=== PATIENT | male | born 1955 | race Caucasian/White ===

== ENCOUNTER → 2017-02-22 | Outpatient (CLI) | payer OTHER ==
[~2017-02-22] MED LIST: ASPEC81 PO; CARV3.12 PO; FLUO20CA35 PO; ISOS60TA25 PO; LOSA1TAB38 PO; LSX/40 PO; MINO1TAB PO; MULTTAB58 PO; NTRGSL/4 SL; POTA-327 PO; POTA20TA16 PO; SPIR50TA2 PO
--- NOTE | 2017-02-22 10:22 | DIAGNOSTIC IMAGING REPORT ---
TWO VIEW CHEST CLINICAL HISTORY: Atypical chest pain. Preoperative examination. FINDINGS: PA and lateral chest radiographs are compared to study dated 06/04/2012 and correlated with chest CT dated 04/30/2013. The PA view is degraded by patient rotation. The heart is enlarged and there is atherosclerotic calcification of the thoracic aorta. The pulmonary vasculature is noncongested. Chronic interstitial thickening is similar to previous. No airspace consolidation or pleural effusion is seen. There are at least 2 pulmonary nodules identified (1 in each lung) measuring up to 9 mm. Pulmonary nodules were also seen on the 04/30/2013 CT scan. There is no pneumothorax. The skeletal structures are osteopenic. Degenerative change is noted throughout the thoracic spine. IMPRESSION: 1. Cardiomegaly with no active disease in the chest. 2. There are at least 2 pulmonary nodules identified measuring up to 9 mm. These were also likely present on the 04/30/2013 CT scan. A nonemergent follow-up chest CT could be considered for reassessment if clinically warranted. Electronically signed by: Carroll Vega M.D. 02/22/2017 10:20 AM Dictated Date/Time: 02/22/2017 10:16 AM
[2017-02-22 10:46] LABS: BASO % 0.7 %; BASO ABS # 0.05 K/uL (0-0.2); COMPLETE YES; EOS % 5.5 %; HEMATOCRIT 49.2 % (42-52); IG% 0.3 %; LYMPH % 20.5 %; LYMPH ABS # 1.37 K/uL (1.2-3.4); MEAN CELL VOLUME 91.3 fL (80-100); MEAN CORPUSCULAR HEMOGLOBIN 31.4 pg (25-34); MEAN CORPUSCULAR HGB CONC 34.3 g/dl (32-36); MEAN PLATELET VOLUME 10.6 fL (7.4-10.4); MONO % 11.5 %; NEUT % 61.5 %; PLATELET COUNT 244 K/uL (130-400); RED BLOOD COUNT 5.39 M/uL (4.7-6.1); WHITE BLOOD COUNT 6.67 K/uL (4.8-10.8)
[2017-02-22 10:51] LABS: PARTIAL THROMBOPLASTIN RATIO 1.1; PROTHROMBIN TIME (PATIENT) 10.6 SECONDS (9.0-12.0)
[2017-02-22 11:11] LABS: ALKALINE PHOSPHATASE 84 U/L (45-117); ALT/SGPT 48 U/L (12-78); AST/SGOT 26 U/L (15-37); BLOOD UREA NITROGEN 24 mg/dl (7-18); BUN/CREATININE RATIO 19.6 (10-20); CALCIUM 9.5 mg/dl (8.5-10.1); CARBON DIOXIDE 30 mmol/L (21-32); CHLORIDE 106 mmol/L (98-107); CHOLESTEROL 144 mg/dl (0-200); CHOLESTEROL/HDL RATIO 2.7; GLUCOSE 139 mg/dl (70-99); HDL CHOLESTEROL 54 mg/dl; LDL CHOLESTEROL CALCULATED 66 mg/dl; POTASSIUM 3.8 mmol/L (3.5-5.1); SODIUM 141 mmol/L (136-145); TRIGLYCERIDES 119 mg/dl (0-150); VERY LOW DENSITY LIPOPROT CALC 24 mg/dl
== END | disposition home or self-care (01) ==
LOC: C.RAD1850 09:47
PROVIDERS: ATTEND Internal Medicine Cardiovascular Disease
DX: R07.9 Chest pain, unspecified (principal); I51.7 Cardiomegaly; R91.8 Other nonspecific abnormal finding of lung field

== ENCOUNTER → 2017-03-01 | Day surgery (SDC) | payer OTHER ==
[~2017-03-01] VITALS: Ht 177.8 cm; Wt 100.0 kg
[~2017-03-01] MED LIST changes: +ADENOSINE IV SOLN 3 MG/ML 20 ML VIAL ONE; +FENTANYL CITRATE INJ 50 MCG/1 ML 2 ML VIAL ONE; +HEPARIN SOD (PORCINE) 1000 UNIT/ML 10 ML VIAL ONE; +MIDAZOLAM HCL 1 MG/ML 2ML VIAL ONE; +NITROGLYCERIN/D5W 100MCG/ML 20ML SYR ONE; +NiCARDipine HCL INJ 2.5 MG/ML 10 ML AMP ONE
[2017-03-01 07:19] VITALS: BP 174/104; PULSE 53; TEMP 36.5; O2SAT 96; Ht 177.8 cm; Wt 100.0 kg
--- NOTE | 2017-03-01 10:19 | Procedure Note ---
Pre-Mod Sedation Assessment General Date of Moderate Sedation: March 01, 2017. Vital Signs: Vital Signs Past 12 Hours Date Time Temp Pulse Resp B/P Pulse Ox O2 Delivery O2 Flow Rate FiO2 03/01/17 10:00 58 18 166/102 98 Room Air 03/01/17 09:55 57 18 165/108 98 Room Air 03/01/17 09:50 56 16 150/102 99 Room Air 03/01/17 09:45 54 16 159/104 99 Room Air 03/01/17 09:40 58 16 156/104 98 Room Air 03/01/17 09:38 57 16 166/114 96 Room Air 03/01/17 07:19 36.5 53 16 174/104 96 Room Air Review Cardiovascular: regular rate, rhythm, no edema Abdomen: normal bowel sounds, non tender Lungs: chest non-tender, lungs clear Pre-Sedation Airway Assessment Oral Cavity: Dentures, WNL Short Thick Neck: No Hx of Sleep Apnea: Yes Smoking Status: Never Smoker Mallampati Classification: Class III ASA Classification: Class III Procedure Planning Contraindications-for Mod Sed: None Yes Notes The planned sedation has been discussed with the patient and consent obtained. I have identified the patient, determined the appropriateness of sedation and have assessed the patient immediately prior to the procedure. All medicine(s) and interventions are by my order.
--- NOTE | 2017-03-01 10:20 | Procedure Note ---
Post-Mod Sedation Assessment General Date of Moderate Sedation March 01, 2017. Vital Signs: Vital Signs Past 12 Hours Date Time Temp Pulse Resp B/P Pulse Ox O2 Delivery O2 Flow Rate FiO2 03/01/17 10:00 58 18 166/102 98 Room Air 03/01/17 09:55 57 18 165/108 98 Room Air 03/01/17 09:50 56 16 150/102 99 Room Air 03/01/17 09:45 54 16 159/104 99 Room Air 03/01/17 09:40 58 16 156/104 98 Room Air 03/01/17 09:38 57 16 166/114 96 Room Air 03/01/17 07:19 36.5 53 16 174/104 96 Room Air Review - Discharge Criteria Vital Signs Stable: Yes Alert/Oriented/Conversant: Yes Returned to Baseline Mental St: Yes Nausea Absent/Minimal: Yes Pain/Discomfort/Absent/Minimal: Yes Normal/Baseline Respirations: Yes Active Bleeding?: N/A Pt Received D/C Instructions: Yes Prescriptions Given: Transmitted Specific Proced. D/C Criteria Distal Pulses Present (Cardiac: Yes Groin site assessed-Card Cath: N/A Voided Prior To Discharge: N/A Discharged Patients Adult Escort/Transportation: Yes
--- NOTE | 2017-03-01 10:49 | Discharge Instructions ---
Discharge Instructions Procedure Procedure Date: March 01, 2017. Reason for Visit: Chest Pain *. Discharge Discharge Date: March 01, 2017. Discharge Diagnosis: Coronary Artery Disease Last Recorded Wt (Kilograms): 100 Anesthesia Post Anesthesia Instructions: If you have had General Anesthesia or IV Sedation: * Do not drive today. * Resume driving when surgeon permits. * Do not make important decisions or sign legal documents today. * Call surgeon for: 1. Temperature elevations greater than 101 degrees F. 2. Uncontrollable pain. 3. Excessive bleeding. 4. Persistent nausea and vomiting. 5. Medication intolerance (nausea, vomiting or rash). * For nausea and vomiting use only clear liquids such as: tea, soda, bouillon until nausea subsides, then gradually increase diet as tolerated. * If you have any concerns or questions, call your surgeon's office. If physician is unavailable and it is an emergency, call 911 or go to the nearest emergency room. Instructions Activity Recommendations: limitations as noted below Recommended Home Diet: resume previous diet Allergies: Coded Allergies: Acetaminophen (Verified Adverse Reaction, Unknown, HIVES, 03/01/17) Follow Up Additional Instructions: ACTIVITY RECOMMENDATIONS: It is common to feel weak and fatigue for a few days. * Do not drive or operate any motorized equipment for the next three days. * Limit stair usage (2 or 3 trips a day only) for the next three days. * Do not lift anything heavier than 10 pounds for the next three days. * Do not engage in vigorous exercise or any sports for the next five days. * You may shower the day after your procedure, but do not immerse the area for three days. Cleanse the site gently with soap and water. SPECIAL CARE INSTRUCTIONS: * You may replace the pressure dressing or band-aid the morning after the procedure. * After your procedure, it is normal to have a small bruise or small lump at the site. Examine your site daily for any change in the bruise or lump, redness, swelling, drainage or numbness. Notify your doctor if any change. BLEEDING: * If there is a small amount of bleeding at the site, lie down and apply firm pressure with a clean cloth for ten minutes. When the bleeding stops, lie quietly keeping the procedure limb straight for six hours. Notify your doctor as soon as possible. * If the bleeding does not stop after ten minutes or if there is a large amount of bleeding or spurting, call 911 immediately. Continue to lie down and hold firm pressure until help arrives. SKIN IRRITATION: * You may experience some redness and/or swelling in the area where radiation was administered. If any skin irritation occurs, please contact your family physician. FOLLOW UP VISIT: Keep any scheduled doctor appointments. Follow-up with: Dr. Duval in next 1-2 weeks. Vlad Riley Recommendations: Call your doctor if: * Temperature above 101 degrees * Pain not relieved by pain medicine ordered * There is increased drainage or redness from any incision * You have any unanswered questions or concerns. Your Doctors Instructions noted above were prepared by provider Pérez Infante. Patient Signature Section: Patient Instructions Signature Page Anton Nuno Patient (or Guardian) Signature/Date: I have read and understand the instructions given to me by my caregivers. Caregiver/RN/Doctor Signature/Date: The above-named patient and/or guardian has received patient instructions on this date. + Original Patient Signature Page (only) stays with chart. Please make copy for patient.
[2017-03-01 12:15] VITALS: BP 160/87; PULSE 58; O2SAT 99
--- NOTE | 2017-03-07 08:08 | Cardiac Catheterization ---
Procedure Note Procedure Date March 01, 2017. Pre-Procedure Diagnosis Positive Stress Test AUC Score 7 Post-Procedure Diagnosis Severe CAD, Normal Intracardiac Pressures Procedure(s) Performed Coronary Angiography, Left Heart Cath, Fractional Flow [place] Odd Bundle Worker Dr. Infante Transport Tank Technician(s) Valeria Estimated Blood Loss 15 Medication(s) Fentanyl, Heparin, Nitroglycerin, Versed, Lidocaine 1%, Adenosine Summary of Findings Indication: Positive stress test Access: 6Fr Left radial Artery Catheters: JL4, JR4, AR2 Findings: LM - Luminal irregularities. LAD - 50% ostial stenosis; 30-40% mid segment stenosis; distal segment tapers before apex and is small and diffusely diseased. Circumflex - 20% ostial stenosis; gives off large OM2 with luminal irregularities; distal circumflex is small with sequential lesions, 70% stenosis at take-off of OM2 and second focal area with 70-80% stenosis; Small L- PLB with luminal irregularities RCA - Dominant, 80-90% ostial, moderately calcified stenosis; 60% early-mid segment stenosis; distal vessel, PDA with luminal irregularities. LVEDP - 7 Arterial Closure: TR Band FFR of ostial, mid LAD performed: EBU 3.5 guide, straight FFR wire, adenosine administered FFR - 0.88 Summary: 1. Multivessel coronary artery disease - 80-90% ostial calcified RCA, 60% mid segment disease - 50% ostial LAD (FFR 0.88) - Sequential 70% lesions in small distal circumflex 2. Normal intracardiac filling pressures. Recommendations: Ostial RCA is calcified and may require atherectomy. Recommend referral to tertiary center for possible intervention if needed. At present patient with low grade symptoms, and above average exercise tolerance on recent stress test, trial of additional medical management reasonable. Patient to follow-up with Dr. Duval next week to discuss further. In interim continue aspirin, high-intensity statin. Hemodynamics Rest Ao: 163/86/122 Final Ao: 172/87/125 LV: 180/7 Recommendations Medical therapy and/or Counseling, PCI without planned CABG Specimens None Radiation Exposure (mGy) 2915 Contrast (mls) 140 Fluids (cc crystalloids) 140 Drains none Anesthesia moderate Procedural Complication(s) None Disposition PCU ACC Data Cardiac Status Clinical evaluation leading to the procedure CAD Presntation: Positive Stress Test Anginal Classification: CCS II Heart Failure: No, NYHA Class: CCS I Cardiogenic Shock w/in 24Hrs: No Cardiac Arrest w/in 24Hrs: No Imaging studies past 6 months: Yes Stress studies past 6 months: Yes Standard Exercise Stress Test: No Stress Echocardiogram: Yes - Positive Stress Testing w/SPECT MPI: No Cardiac CTA: No Coronary Anatomy Dominant: Right LAD (% Stenosis): Ostial (50) Circumflex (% Stenosis): Distal (70-80) RCA (% Stenosis): Ostial (80-90), Mid (60) Diagnostic Physician's Name: Lul Infante MD Status: Elective Closure Device Percutaneous Entry Location: Radial Closure Device: Radial Band Recommendations: Medical therapy and/or Counseling, PCI without planned CABG Intraprocedure Events Significant Dissection: No Perforation: No
== END | disposition home or self-care (01) ==
LOC: C.CATH 07:02
PROVIDERS: ATTEND Internal Medicine Interventional Cardiology
DX: I25.10 Atherosclerotic heart disease of native coronary artery without angina pectoris (principal); I10 Essential (primary) hypertension; I25.9 Chronic ischemic heart disease, unspecified; I65.29 Occlusion and stenosis of unspecified carotid artery; I51.9 Heart disease, unspecified; I35.0 Nonrheumatic aortic (valve) stenosis; Z82.49 Family history of ischemic heart disease and other diseases of the circulatory system; Z79.82 Long term (current) use of aspirin

== ENCOUNTER 2025-03-05 14:53 | Observation (INO) ==
--- NOTE | 2025-03-05 15:34 | Emergency Department Note ---
Impression & Plan Syncope, Acute hypotension ED Provider Note NAME: DAVIDE AGEE AGE: 69 SEX: M : 1955 ARRIVES VIA: Ambulance INFORMANT: Patient ED PROVIDER(S): Zain Love DO CHIEF COMPLAINT: syncope HPI: Patient is a 69-year-old male who presents to the ER with a past medical history of severe aortic stenosis and mild mitral regurg who had a TAVR performed at [facility] and was DC'd on Tuesday. Patient passed out twice today back to back. They were changing his Hays and he passed out. Following this they put him on the toilet to sit and he passed out there. He denies any head neck or back pain. No chest pain or shortness of breath. No belly pain. No urinary symptoms. Denies any blood thinners. No other exacerbating or remitting factors. Patient was lowered to the ground on both incidents. Patient notes that he has no complaints now and he feels fine. He has been eating and drinking normally per . ADDITIONAL HISTORY OBTAINED: Family present at bedside notes that patient did pass out 2 times. notes that they have been try to get up and move around. Chronic Medical/Social Conditions Affecting Care: Per HPI PAST MEDICAL HISTORY:See Below PAST SURGICAL HISTORY:See Below FAMILY HISTORY:See Below SOCIAL HISTORY:See Below HOME MEDICATIONS:See Below ALLERGIES:See Below VITALS:See Below PHYSICAL EXAMINATION: GENERAL: Sitting up in bed, alert, well appearing, well nourished, no distress, non-toxic HEAD: NC/AT EYE EXAM: normal conjunctiva. PERRL and EOM's grossly intact. OROPHARYNX: no exudate, no erythema, lips, buccal mucosa, and tongue normal and mucous membranes are moist NECK: supple, no nuchal rigidity, no adenopathy, non-tender LUNGS: Clear to auscultation. Normal chest wall mechanics HEART: no murmurs, S1 normal and S2 normal ABDOMEN: abdomen soft, non-tender, normo-active bowel sounds, no masses, no rebound or guarding. BACK: Back is symmetrical on inspection and there is no deformity, no midline tenderness, no CVA tenderness. SKIN: no rashes and no bruising UPPER EXTREMITIES: upper extremities are grossly normal. LOWER EXTREMITIES: No pitting edema. Calves are equal bilaterally NEURO EXAM: Normal sensorium, cranial nerves II-XII grossly intact, normal speech, no gross weakness of arms, no gross weakness of legs. MEDICAL DECISION MAKING: Patient is a 69-year-old male who presents ER for the above-stated complaint. IV was established and blood work was obtained. External records were reviewed from Dr. Duval's note performed on 01/15/2025. Note shows an EF from an echo 2023 50-55%. Upon presentation patient found to be hypotensive with systolic pressures in the 70s to 80s. 2 IVs were obtained and patient was given IV fluids. Bedside echo was performed by myself and no pericardial effusion. Was slightly abnormal which showed some retrograde P waves and what appeared to be intermittent junctional rhythm. Monitor suggest sinus rhythm and will intermittently appear to go into a again which appears to be an accelerated junctional. Blood pressures remain stable throughout this. I do not feel this is the cause of the hypotension as they have rebounded and not dropped down again. Do favor is likely volume as he was on Lasix. Chest x-ray was clean. Echo was obtained and shows an EF of 60%. I did call the mechanical assembly technician to bedside to perform this. Discussed with cardiology. Patient was discussed with the hospitalist for further evaluation management treatment. He did not hurt anything as he was lowered to the ground when he passed out. Consults/Care Managements Discussions: Per [facility] Triage Nursing notes reviewed. Limited review of prior medical records performed Vital Signs: reviewed and remarkable for hypotension Differential diagnosis: Differential diagnosis includes etiologies such as vasovagal event, infection, hypoglycemia, electrolyte abnormalities, cardiac sources, intracerebral event, toxicologic, neurologic, as well as others were entertained. ER treatment provided: See below Diagnostics interpreted by me include EKG and cardiac monitoring as listed below: -Cardiac Monitoring: An order was placed for continuous cardiac monitoring. The monitor shows a rate of 60 with sinus rhythm. -ECG: Retrograde P waves intermittently with a accelerated junctional rhythm at a rate of 70 QTc 447 Left axis -Laboratory studies:Interpreted by me as stated above in MDM and shown below. Imaging studies: Xrays: As interpreted by me: Portable AP upright 1 view of the chest shows no focal infiltrate CTs show: None Bedside cardiac ultrasound performed by myself shows no pericardial effusion Procedures:none Critical Care: I have personally spent 33 minutes of critical care time in the direct management of this patient. This includes bedside care, interpretation of diagnostic studies, and testing, discussion with consultants, patient, and family members, and other required patient management activities. This 33 minutes is in excess of all separately billable procedures. Past Med/Surg History Problem List (Updated 02/07/25 @ 17:25 by Carlos Duval MD) Severe aortic stenosis Hypercalcemia Depression (Acute) CAD, multiple vessel Medically managed. 2017 cath: borderline occlusive ostial RCA, distal Cx, mid LAD Chronic diastolic congestive heart failure HTN (hypertension) Obstructive sleep apnea Sinus bradycardia Medical History Acute diastolic (congestive) heart failure (2011) Basal ganglia hemorrhage (2009) Left thalamic infarction (2004) Carotid occlusion, left (2004) Multiple pulmonary nodules (2013) Bicipital tendinitis, left shoulder (2015) Central retinal vein occlusion (2015) LVH (left ventricular hypertrophy) Family History Father Hypertension Social History Smoking Status: Never smoker Hx Alcohol Use: Yes Hx Substance Use: No Feels Safe at Home: Yes Allergies Allergies Allergy/AdvReac Type Severity Reaction Status Date / Time acetaminophen AdvReac Unknown HIVES Verified 03/05/25 17:09 ceftriaxone [From Rocephin] AdvReac Hives Verified 03/05/25 17:09 Home Meds Home Medications Medication Instructions Recorded Confirmed aspirin 81 mg tablet,delayed 81 mg PO DAILY 06/29/19 03/05/25 release (Adult Aspirin Regimen) atorvastatin 80 mg tablet 80 mg PO DAILY 08/21/19 03/05/25 ezetimibe 10 mg tablet 10 mg PO DAILY 03/05/25 03/05/25 multivitamin 1 tab PO DAILY 03/05/25 03/05/25 nitroglycerin 0.4 mg sublingual 0.4 mg sublingual ONCE PRN Chest 03/05/25 03/05/25 tablet Pain tamsulosin 0.4 mg capsule 0.4 mg PO DAILY 03/05/25 03/05/25 Previous Rx's Medication Instructions Recorded CPAP Machine See Rx Instructions .Route 04/15/22 .COMPLEX #1 ea spironolactone 50 mg tablet 50 mg PO DAILY #90 tabs 03/29/24 furosemide 40 mg tablet 40 mg PO DAILY #90 tabs 05/29/24 irbesartan 300 mg tablet 300 mg PO DAILY #90 tabs 05/29/24 potassium chloride 20 mEq 20 meq PO DAILY #90 tabs 05/29/24 tablet,extended release isosorbide mononitrate 60 mg 60 mg PO DAILY #90 tabs 02/21/25 tablet,extended release 24 hr Results & Data (ED) Vital Signs Vital Signs - 24 hr 03/05/25 15:00 03/05/25 15:04 03/05/25 15:05 Temperature 36.9 C 36.9 C Temperature Source Oral Oral Pulse Rate 73 Pulse Rate from SpO2 Sensor Respiratory Rate 20 20 Blood Pressure 90/50 L Blood Pressure [Left Arm] 90/50 L Blood Pressure Mean 63 Blood Pressure Mean [Left Arm] 63 Pulse Oximetry 100 100 100 Oxygen Delivery Method Room Air Room Air Room Air Sepsis Recent Fever Within 48 Hours No Sepsis New/Unexplained Change in Mental Status N/A Sepsis Action Taken by Nursing No Action Required 03/05/25 15:07 03/05/25 15:10 03/05/25 15:12 Temperature Temperature Source Pulse Rate 68 67 Pulse Rate from SpO2 Sensor Respiratory Rate 20 Blood Pressure 75/49 L Blood Pressure [Left Arm] Blood Pressure Mean 54 Blood Pressure Mean [Left Arm] Pulse Oximetry 99 Oxygen Delivery Method Room Air Sepsis Recent Fever Within 48 Hours Sepsis New/Unexplained Change in Mental Status Sepsis Action Taken by Nursing 03/05/25 15:12 03/05/25 15:15 03/05/25 15:16 Temperature Temperature Source Pulse Rate 74 Pulse Rate from SpO2 Sensor 71 Respiratory Rate 22 Blood Pressure 75/49 L 83/57 L Blood Pressure [Left Arm] Blood Pressure Mean 54 67 Blood Pressure Mean [Left Arm] Pulse Oximetry 91 Oxygen Delivery Method Sepsis Recent Fever Within 48 Hours Sepsis New/Unexplained Change in Mental Status Sepsis Action Taken by Nursing 03/05/25 15:16 03/05/25 15:27 03/05/25 15:30 Temperature Temperature Source Pulse Rate 66 Pulse Rate from SpO2 Sensor 67 Respiratory Rate 27 H Blood Pressure 79/51 L 111/67 Blood Pressure [Left Arm] Blood Pressure Mean 58 79 Blood Pressure Mean [Left Arm] Pulse Oximetry 100 Oxygen Delivery Method Sepsis Recent Fever Within 48 Hours Sepsis New/Unexplained Change in Mental Status Sepsis Action Taken by Nursing 03/05/25 15:30 03/05/25 15:30 03/05/25 15:30 Temperature Temperature Source Pulse Rate Pulse Rate from SpO2 Sensor Respiratory Rate Blood Pressure 111/67 111/67 111/67 Blood Pressure [Left Arm] Blood Pressure Mean 79 79 79 Blood Pressure Mean [Left Arm] Pulse Oximetry Oxygen Delivery Method Sepsis Recent Fever Within 48 Hours Sepsis New/Unexplained Change in Mental Status Sepsis Action Taken by Nursing 03/05/25 15:30 03/05/25 15:33 03/05/25 15:45 Temperature Temperature Source Pulse Rate 66 68 Pulse Rate from SpO2 Sensor 68 68 Respiratory Rate 40 H 34 H Blood Pressure 140/80 Blood Pressure [Left Arm] Blood Pressure Mean 101 Blood Pressure Mean [Left Arm] Pulse Oximetry 95 100 Oxygen Delivery Method Sepsis Recent Fever Within 48 Hours Sepsis New/Unexplained Change in Mental Status Sepsis Action Taken by Nursing 03/05/25 15:54 03/05/25 15:57 03/05/25 16:00 Temperature Temperature Source Pulse Rate 70 67 Pulse Rate from SpO2 Sensor 60 64 Respiratory Rate 26 H 27 H Blood Pressure 124/93 Blood Pressure [Left Arm] Blood Pressure Mean 100 Blood Pressure Mean [Left Arm] Pulse Oximetry 100 100 Oxygen Delivery Method Sepsis Recent Fever Within 48 Hours Sepsis New/Unexplained Change in Mental Status Sepsis Action Taken by Nursing 03/05/25 16:00 03/05/25 16:15 03/05/25 16:15 Temperature Temperature Source Pulse Rate 67 Pulse Rate from SpO2 Sensor 65 Respiratory Rate 26 H Blood Pressure 124/93 115/77 Blood Pressure [Left Arm] Blood Pressure Mean 100 95 Blood Pressure Mean [Left Arm] Pulse Oximetry 100 Oxygen Delivery Method Sepsis Recent Fever Within 48 Hours Sepsis New/Unexplained Change in Mental Status Sepsis Action Taken by Nursing 03/05/25 16:30 03/05/25 16:30 03/05/25 16:45 Temperature Temperature Source Pulse Rate 66 68 Pulse Rate from SpO2 Sensor 63 68 Respiratory Rate 36 H 29 H Blood Pressure 132/78 Blood Pressure [Left Arm] Blood Pressure Mean 102 Blood Pressure Mean [Left Arm] Pulse Oximetry 98 99 Oxygen Delivery Method Sepsis Recent Fever Within 48 Hours Sepsis New/Unexplained Change in Mental Status Sepsis Action Taken by Nursing 03/05/25 16:45 03/05/25 16:45 03/05/25 16:48 Temperature Temperature Source Pulse Rate 67 Pulse Rate from SpO2 Sensor 67 Respiratory Rate 26 H Blood Pressure 116/66 116/66 116/66 Blood Pressure [Left Arm] Blood Pressure Mean 80 80 82 Blood Pressure Mean [Left Arm] Pulse Oximetry 100 Oxygen Delivery Method Sepsis Recent Fever Within 48 Hours Sepsis New/Unexplained Change in Mental Status Sepsis Action Taken by Nursing 03/05/25 17:15 03/05/25 17:30 Temperature Temperature Source Pulse Rate 68 70 Pulse Rate from SpO2 Sensor 65 68 Respiratory Rate 25 H 18 Blood Pressure 120/80 142/77 H Blood Pressure [Left Arm] Blood Pressure Mean 93 98 Blood Pressure Mean [Left Arm] Pulse Oximetry 98 98 Oxygen Delivery Method Sepsis Recent Fever Within 48 Hours Sepsis New/Unexplained Change in Mental Status Sepsis Action Taken by Nursing Laboratory Data 03/05/25 15:01 03/05/25 15:01 Lab Results 03/05/25 03/05/25 Range/Units 15: 15:29 WBC 9.07 (4.8-10.8) K/ul RBC 4.48 L (4.70-6.10) M/uL Hgb 13.9 L (14.0-18.0) g/dl POC Hgb 13.6 L (14.0-18.0) g/dl Hct 40.1 L (42.0-52.0) % POC Hct 40 L (42-52) % MCV 89.5 (80.0-100.0) fL MCH 31.0 (25.0-34.0) pg MCHC 34.7 (32.0-36.0) g/dL RDW Std Deviation 43.7 (36.4-46.3) fL RDW Coeff of Bret 13.3 (11.5-14.5) % Plt Count 253 (130-400) K/uL MPV 10.4 (9.4-12.4) fL Immature Gran % (Auto) 0.6 % Neut % (Auto) 69.9 % Lymph % (Auto) 16.0 % Green % (Auto) 9.3 % Eos % (Auto) 3.5 % Baso % (Auto) 0.7 % Neut # (Auto) 6.35 (1.40-6.50) K/uL Lymph # (Auto) 1.45 (1.20-3.40) K/uL Green # (Auto) 0.84 H (0.11-0.59) K/uL Eos # (Auto) 0.32 (0.00-0.50) K/uL Baso # (Auto) 0.06 (0.00-0.20) K/uL Immature Gran # (Auto) 0.05 (0.01-0.20) K/uL POC Sodium 139 (135-144) mmol/L Sodium 136 (136-145) mmol/L POC Potassium 3.9 (3.3-5.0) mmol/L Potassium 3.9 (3.5-5.1) mmol/L POC Chloride 103 (101-112) mmol/L Chloride 103 (98-107) mmol/L Carbon Dioxide 27 (21-32) mmol/L POC Total CO2 20 L (24-31) mmol/L Anion Gap 6 (3-11) POC Anion Gap 21.0 (16-25) mmol/L POC BUN 21 H (7-18) mg/dl BUN 21 (6-23) mg/dl Creatinine 1.43 H (0.6-1.4) mg/dl POC Creatinine 1.5 H (0.6-1.3) mg/dl Est Cr Clr Drug Dosing 58.7 ml/min eGFR 52.71 BUN/Creatinine Ratio 14.7 (10-20) Glucose 169 H (70-99(Fasting)) mg/dl POC Glucose (other) 177 H (70-99) mg/dl Calcium 10.2 (8.6-10.3) mg/dl POC Ioniz Calcium Gayathri 1.29 (1.12-1.32) mmol/l Total Bilirubin 1.1 H (0.2-1.0) mg/dl AST 34 (13-39) U/L ALT 31 (7-52) U/L Alkaline Phosphatase 85 (34-104) U/L Troponin I High Sens 14.2 (0-20) pg/ml Total Protein 7.3 (6.0-8.3) gm/dl Albumin 3.9 (3.4-5.0) gm/dl Globulin 3.4 (2.5-4.0) gm/dl Albumin/Globulin Ratio 1.1 (0.9-2) Lipase 50 (11-82) U/L Procalcitonin 0.10 (0-0.5) ng/ml Administered Medications Discontinued Medications Diphenhydramine HCl (Diphenhydramine 50 Mg/Ml Vial) 25 mg IV NOW STA Stop: 03/05/25 16:54 Last Admin: 03/05/25 17:00 Dose: 25 mg Documented By: ANGELITO Sodium Chloride (Nss) 1,000 mls @ 999 mls/hr IV .Q1H1M ONE Stop: 03/05/25 16:21 Last Infusion: 03/05/25 17:30 Dose: Infused Documented By: Admin: 03/05/25 15:40 Dose: 999 mls/hr Documented By: ANGELITO Ceftriaxone Sodium (Rocephin) 2,000 mg in 50 mls @ 100 mls/hr IV NOW STA Stop: 03/05/25 16:12 Last Infusion: 03/05/25 17:29 Dose: Infused Documented By: Admin: 03/05/25 16:38 Dose: 100 mls/hr Documented By: ANGELITO Methylprednisolone (Methylprednisolone 125 Mg/2 Ml Vial) 125 mg IV NOW STA Stop: 03/05/25 16:54 Last Admin: 03/05/25 17:00 Dose: 125 mg Documented By: ANGELITO Imaging Data Radiologist's Impression: Chest X-Ray 03/05/25 15:07 XR chest 1V portable CLINICAL HISTORY: Chest pain, nonspecific COMPARISON STUDY: 06/28/2019 FINDINGS: Stable mild cardiomegaly without pulmonary vascular congestion. No effusion, consolidation, or pneumothorax. IMPRESSION: No acute findings. ACT 112: Negative or not required by law. Electronically signed by: Freedom Ferreira M.D. 03/05/2025 3:34 PM Discharge Plan Visit Data Chief Complaint: Syncope Stated Complaint: SYNCOPE ED Provider: Zain Love Condition: Fair Forms Stand Alone Forms: My [facility] Prescriptions Prescriptions: No Action spironolactone 50 mg tablet 50 mg PO DAILY Qty: 90 3RF furosemide 40 mg tablet 40 mg PO DAILY Qty: 90 3RF irbesartan 300 mg tablet 300 mg PO DAILY Qty: 90 3RF potassium chloride 20 mEq tablet extended release 20 meq PO DAILY Qty: 90 3RF isosorbide mononitrate 60 mg tablet extended release 24 hr 60 mg PO DAILY Qty: 90 3RF CPAP Machine Misc See Rx Instructions .ROUTE .COMPLEX Qty: 1 0RF Rx Instructions: new machine, compliance download capabilities and estimated AHI and leak. CPAP 17 cm H2O. Mask fit to patient comfort, supplies as needed; T&B aspirin [Adult Aspirin Regimen] 81 mg tablet,delayed release (DR/EC) 81 mg PO DAILY atorvastatin 80 mg tablet 80 mg PO DAILY multivitamin Tablet 1 tab PO DAILY tamsulosin 0.4 mg capsule 0.4 mg PO DAILY ezetimibe 10 mg tablet 10 mg PO DAILY nitroglycerin 0.4 mg tablet, sublingual 0.4 mg SL ONCE PRN (Reason: Chest Pain) Referrals Referrals: Henrique Arambula MD [Primary Care Provider] -
[2025-03-05 15:40] LABS: Basophils # (auto) 0.06 K/uL (0.00-0.20); Basophils % (auto) 0.7 %; Eosinophils # (auto) 0.32 K/uL (0.00-0.50); Eosinophils % (auto) 3.5 %; Hematocrit (blood only) 40.1 % (42.0-52.0); Hemoglobin 13.9 g/dl (14.0-18.0); Immature Granulocytes # (auto) 0.05 K/uL (0.01-0.20); Immature Granulocytes % (auto) 0.6 %; Lymphocytes # (auto) 1.45 K/uL (1.20-3.40); Mean Corpuscular Hgb Conc 34.7 g/dL (32.0-36.0); Mean Corpuscular Volume 89.5 fL (80.0-100.0); Mean Platelet Volume 10.4 fL (9.4-12.4); Monocytes # (auto) 0.84 K/uL (0.11-0.59); Monocytes % (auto) 9.3 %; Neutrophils # (auto) 6.35 K/uL (1.40-6.50); Neutrophils % (auto) 69.9 %; Platelet Count 253 K/uL (130-400); RDW Coefficient of Variation 13.3 % (11.5-14.5); RDW Standard Deviation 43.7 fL (36.4-46.3); Red Blood Count 4.48 M/uL (4.70-6.10); White Blood Count 9.07 K/ul (4.8-10.8)
[2025-03-05] MEDS: SODIUM CHLORIDE 0.9% 1,000 ML IV ONE (15:40)
[2025-03-05 15:42] LABS: iSTAT Creatinine 1.5 mg/dl (0.6-1.3); iSTAT Hemoglobin 13.6 g/dl (14.0-18.0); iSTAT Ionized Calcium 1.29 mmol/l (1.12-1.32); iSTAT Potassium 3.9 mmol/L (3.3-5.0)
[2025-03-05 16:07] LABS: Albumin Globulin Ratio 1.1 (0.9-2); Albumin Level 3.9 gm/dl (3.4-5.0); BUN Creatinine Ratio 14.7 (10-20); Bilirubin,Total 1.1 mg/dl (0.2-1.0); Calcium 10.2 mg/dl (8.6-10.3); Creatinine Clr Calc Pharmacy 58.7 ml/min; Globulin 3.4 gm/dl (2.5-4.0); Potassium 3.9 mmol/L (3.5-5.1); Total Protein 7.3 gm/dl (6.0-8.3)
[2025-03-05 16:14] LABS: Troponin I High Sensitivity 14.2 pg/ml (0-20)
[2025-03-05] MEDS: cefTRIAXone SODIUM 2,000 MG/50 ML BAG IV STA (16:38)
--- NOTE | 2025-03-05 16:44 | XCELERA ---
[id number] [email or web address]\[id number]
[2025-03-05] MEDS: diphenhydrAMINE 50 MG/ML VIAL IV STA (17:00)
[2025-03-05] MEDS: methylPREDNISolone 125 MG/2 ML VIAL IV STA (17:00)
--- NOTE | 2025-03-05 19:12 | History & Physical Report ---
Date of Service March 05, 2025 Assessment & Plan (1) Near syncope: (2) Junctional rhythm: (3) Severe aortic stenosis: (4) CAD, multiple vessel: Plan #near syncopehaving just had a TAVR, and his diuretic dosing has not yet been down regulated, with his creatinine higher than recent labs, I suspect this is most likely dehydration. Given how brittle severe aortic stenosis leave someone as far as their fluid balance, and given that it does not sound like there was any electrophysiology interventions last week (again I will look for these records to review) most likely it was a poor forward flow/fluid balance issue whenever he had syncope/near syncope last week as well. He feels better now, and has been given fluids. Will check orthostatics and give more fluids if he has any significant orthostatic drop in his blood pressure or increase in his heart rate, and hold his Lasix for now. We discussed how often after TAVR people's medication needs can pipe changer time, and it may simply be a good time to start to wean back on his diuretics. At the same time, he does show o ccasionally what appears to be a junctional rhythm, although he does not have any symptoms during it (he did it briefly while I was in the room with him) and every junctional rhythm that we have captured on monitor still has a heart rate in the 6070 range. Probably not of clinical significance, but given that he does have significant heart disease and now recurrent events, we will follow his rhythm, check twelve-lead EKG again in the morning, and possibly set him up for an event recorder. #Severe arctic stenosisstatus post TAVR, echo noted, fortunately TAVR appears to be in good position and working well #AKIprobably from volume depletion as above noted. Has been given a liter of IV fluids. Will give more if he shows significant orthostatic drop #DVT prophylaxisambulation unless his hospital stay becomes prolonged. History of Present Illness Chief Complaint: Syncope/near syncope Primary Care Provider: Henrique Arambula MD patient is a very pleasant 69-year-old male who presents after having a syncopal or near syncopal event at home. He relates that he was getting ready to go out of the house, currently has an indwelling Hays, was getting his pants buttoned around the catheter tubing, and then does not really remember what happened and then recalls sitting on the toilet with his family around him calling 911 as he related to them that he was fine. His notes that she was helping him get dressed, and the time that he cannot really account for he got poorly responsive although not unresponsive, did not truly lose consciousness but did get very pale and sweaty and his eyes were unfocused, he staggered to his knees, and then she was able to help him sit up on the toilet, and then called 911. After that he seems to have slowly come back to feeling like his normal self. [facility], he was having a lot of urinary issues as well and the punch molder was able to get him in with urology [facility]. At the urology visit he also apparently had a similar episodenot entirely clear what had happened (will find records to review) but notes from there he was sent to the ER, and was evaluated by cardiology there who then had him stay in the hospital until proceeding with TAVR 2 days later. He currently feels fine and wants to go home Allergies Allergy/AdvReac Type Severity Reaction Status Date / Time acetaminophen AdvReac Unknown HIVES Verified 03/05/25 17:09 ceftriaxone [From Rocephin] AdvReac Hives Verified 03/05/25 17:09 Home Medications Medication Instructions Recorded Confirmed Type aspirin 81 mg tablet,delayed 81 mg PO DAILY 06/29/19 03/05/25 History release (Adult Aspirin Regimen) atorvastatin 80 mg tablet 80 mg PO DAILY 08/21/19 03/05/25 History CPAP Machine See Rx Instructions .Route 04/15/22 02/13/25 Rx .COMPLEX #1 ea spironolactone 50 mg tablet 50 mg PO DAILY #90 tabs 03/29/24 03/05/25 Rx furosemide 40 mg tablet 40 mg PO DAILY #90 tabs 05/29/24 03/05/25 Rx irbesartan 300 mg tablet 300 mg PO DAILY #90 tabs 05/29/24 03/05/25 Rx potassium chloride 20 mEq 20 meq PO DAILY #90 tabs 05/29/24 03/05/25 Rx tablet,extended release isosorbide mononitrate 60 mg 60 mg PO DAILY #90 tabs 02/21/25 03/05/25 Rx tablet,extended release 24 hr ezetimibe 10 mg tablet 10 mg PO DAILY 03/05/25 03/05/25 History multivitamin 1 tab PO DAILY 03/05/25 03/05/25 History nitroglycerin 0.4 mg sublingual 0.4 mg sublingual ONCE PRN Chest 03/05/25 03/05/25 History tablet Pain tamsulosin 0.4 mg capsule 0.4 mg PO DAILY 03/05/25 03/05/25 History Past Med/Surg History Problem List (Updated 03/05/25 @ 19:15 by Zain Maldonado DO) Junctional rhythm Near syncope Severe aortic stenosis Hypercalcemia Depression (Acute) CAD, multiple vessel Medically managed. 2017 cath: borderline occlusive ostial RCA, distal Cx, mid LAD Chronic diastolic congestive heart failure HTN (hypertension) Obstructive sleep apnea Sinus bradycardia Medical History Acute diastolic (congestive) heart failure (2011) Basal ganglia hemorrhage (2009) Left thalamic infarction (2004) Carotid occlusion, left (2004) Multiple pulmonary nodules (2013) Bicipital tendinitis, left shoulder (2015) Central retinal vein occlusion (2015) LVH (left ventricular hypertrophy) Family History Father Hypertension Social History Smoking Status: Never smoker Hx Alcohol Use: Yes Hx Substance Use: No Feels Safe at Home: Yes Review of Systems Review of Systems: All systems reviewed & are unremarkable except as noted in HPI & below Physical Exam Physical Exam: in general he is awake alert oriented pleasant no distress. HEENT normocephalic atraumatic mucous membranes moist. Cardio is regular without rubs murmurs gallops. Lungs are clear to auscultation bilaterally no rales rhonchi or wheezes good effort. Skin shows no rashes no pallor or icterus. Extremities show no cyanosis clubbing or edema. 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 Mental status shows good recent and remote recall normal mood and affect good judgment and insight. He does have a chronic indwelling Hays at this time. Results & Data Results & Data Vital Signs (Past 12 Hours) Vital Signs Temp Pulse Resp BP BP Pulse Ox O2 Del Method 03/05/25 17:30 70 18 142/77 H 98 03/05/25 17:15 68 25 H 120/80 98 03/05/25 16:48 67 26 H 116/66 100 03/05/25 16:45 116/66 03/05/25 16:45 116/66 03/05/25 16:45 68 29 H 99 03/05/25 16:30 66 36 H 98 03/05/25 16:30 132/78 03/05/25 16:15 67 26 H 100 03/05/25 16:15 115/77 03/05/25 16:00 124/93 03/05/25 16:00 124/93 03/05/25 15:57 67 27 H 100 03/05/25 15:54 70 26 H 100 03/05/25 15:45 140/80 03/05/25 15:33 68 34 H 100 03/05/25 15:30 66 40 H 95 03/05/25 15:30 111/67 03/05/25 15:30 111/67 03/05/25 15:30 111/67 03/05/25 15:30 111/67 03/05/25 15:27 66 27 H 100 03/05/25 15:16 79/51 L 03/05/25 15:16 83/57 L 03/05/25 15:15 74 22 91 03/05/25 15:12 75/49 L 03/05/25 15:12 75/49 L 03/05/25 15:10 67 03/05/25 15:07 68 20 99 Room Air 03/05/25 15:05 98.4 F 20 90/50 L 100 Room Air 03/05/25 15:04 100 Room Air 03/05/25 15:00 98.4 F 73 20 90/50 L 100 Room Air Code Status & VTE Plan VTE Prophylaxis Plan VTE Prophylaxis will be ordered: Yes PG Care Time/CCT Total # of Minutes Spent Total Time Spent with Patient: Total time spent is greater than 50% in coordination of care (as documented) at patient's floor/unit and/or counseling patient: Coding Level of Care Code 77505 INT INP/OBS CARE 3/75MIN Diagnoses Near syncope R55 Junctional rhythm I49.8 Severe aortic stenosis I35.0 CAD, multiple vessel I25.10
[2025-03-05] MEDS ORDERED: MAGNESIUM HYDROXIDE SUSP 30 ML UDC PO PRN (20:52)
[2025-03-05] MEDS ORDERED: NITROGLYCERIN SL 0.4 MG/TAB TAB SL PRN (20:52)
[2025-03-05] MEDS ORDERED: ONDANSETRON INJ 2 MG/ML 2 ML VIAL IV PRN (20:52)
[2025-03-05] MEDS ORDERED: POLYETHYLENE (MIRALAX) 17 GM PACK PO PRN (20:52)
[2025-03-05] MEDS ORDERED: ALUMINUM/MAGNESIUM SUSP 30 ML UDC PO PRN (20:52)
[2025-03-05 22:14] LABS: Appearance Urine Turbid (Clear); Bacteria Urine Automated None Seen (None Seen); Bilirubin Urine 1+ (Negative); Blood Urine 3+ (Negative); Cast Urine Automated 0-2 /lpf (0-2); Color Urine Dark Yellow; Epithelial Cell Urine Auto 0-2 /hpf (0-2); Glucose Urine UA Negative (Negative); Ketones Urine Trace (Negative); Leukocyte Esterase Urine 1+ (Negative); Nitrite Urine Negative (Negative); Protein Urine 2+ (Negative); RBC Urine Automated >20 /hpf (0-2); Specific Gravity Urine 1.024 (1.000-1.030); Urobilinogen Urine Negative (Negative)
--- OUTSIDE RECORDS SUMMARY | 2025-03-06 01:11 | External Medical Summary | Continuity of Care Document ---
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) - 02/26/25 Syncope(Discharge Diagnosis) - 02/26/25 Aortic stenosis(Discharge Diagnosis) - 02/26/25 Bocanegra catheter status(Discharge Diagnosis) - 02/27/25 Coronary artery disease(Discharge Diagnosis) - 02/27/25 Urinary retention(Discharge Diagnosis) - 02/26/25 HTN (hypertension)(Discharge Diagnosis) - 02/27/25 Atrial flutter(Discharge Diagnosis) - 02/28/25 Fever(Discharge Diagnosis) - 03/01/25 Discharge Disposition: Home or Self Care Attending Physician: MD Bobby Michael P Admitting Physician: MD Bobby Michael P Encounter Type: Inpatient Allergies, Adverse Reactions, Alerts Substance Criticality Severity Reaction Reaction Severity Status Tylenol 1 hives Active Trees rhinitis Active Dust rhinitis Active Pollen rhinitis Active Ragweed rhinitis Active 1Pt tolerated February 2025 Functional Status 03/01/25 Neurological Symptoms None ADLs Minimal assistance Facial Symmetry Symmetric Gait Steady Swallowing Difficulty None Level of Consciousness Neuro Alert Hallucinations Present None History of Fall in Last 3 Months Buckley N o Presence of Secondary Diagnosis Buckley No Use of Ambulatory Aid Buckley None/bedrest /nurse assist IV/Heparin Lock Fall Risk Buckley Yes Gait/Transferring Fall Risk Buckley Normal /bedrest/immobile Mental Status Fall Risk Buckley Oriented t o own ability Buckley Fall Risk Score 20 Buckley Fall Risk No Risk Speech Pattern Clear Immunizations Given and Recorded Vaccine Date Status Refusal Reason Zoster Vaccine Unspecified 1 06/01/22 Recorded Zoster Vaccine Unspecified 2 04/04/22 Recorded tetanus/diphtheria/pertuss, acel (Tdap) 3 04/04/22 Recorded SARS-CoV-2 (COVID-19) mRNA BNT-162b2 vax 4 08/17/21 Recorded SARS-CoV-2 (COVID-19) mRNA BNT-162b2 vax 5 01/18/21 Recorded SARS-CoV-2 (COVID-19) mRNA BNT-162b2 vax 6 12/28/20 Recorded influenza virus vaccine, inactivated 07/2021 Malcolm rded influenza virus vaccine, inactivated 07/25/19 Give n pneumococcal 13-valent vaccine 08/08/19 Recorded 1Result Comment: 2023-04-27: Historical information-source unspecified 2Result Comment: 2023-04-27: Historical information-source unspecified 3Result Comment: 2022-09-06: Historical information-source unspecified 4Result Comment: 2022: Historical information-source unspecified 5Result Comment: [id number] 6Result Comment: 2021-03-06: Historical information-source unspecified Medications aspirin 81 mg oral delayed release tablet Start: 05/15/19 7:59:00 PM EDT, 1 tab, PO, Daily, Disp# 100 tab, Refills: 10, given to patient Start Date: 05/15/19 Status: Ordered Quantity: 100.0 Unit: tab Repeat number: 11 atorvastatin 80 mg oral tablet Start: 07/06/24 3:30:00 PM EDT, 1 tab, PO, qhs, Disp# 90 tab, Refills: 3, Pharmacy: [id number] Start Date: 07/06/24 Status: Ordered Quantity: 90.0 Unit: tab Repeat number: 1 furosemide 40 mg oral tablet Start: 08/24/21 1:05:00 PM EDT, 1 tab, PO, Daily Start Date: 08/24/21 Status: Ordered Repeat number: 1 irbesartan 300 mg oral tablet Start: 02/19/25 11:54:00 AM EDT, 1 tab, PO, Daily, Disp# 90 tab, Refills: 0, Pharmacy: [facility] STORE [id number] Start Date: 02/19/25 Status: Ordered Quantity: 90.0 Unit: tab Repeat number: 1 isosorbide mononitrate 60 mg oral tablet, extended release Start: 08/24/21 1:05:00 PM EDT, 1 tab, PO, qAM Start Date: 08/24/21 Status: Ordered Repeat number: 1 multivitamin Start: 05/15/19 7:35:00 PM EDT, 1 tab, PO, Daily Start Date: 05/15/19 Status: Ordered Repeat number: 1 nitroglycerin 0.4 mg sublingual tablet Start: 02/12/25 2:34:00 PM EDT, 1 tab, SL, q5min, tab, PRN: as needed for chest pain Start Date: 02/12/25 Status: Ordered Repeat number: 1 potassium chloride 20 mEq oral tablet, extended release Start: 07/14/15 10:35:00 AM EDT, 1 tab, PO, Daily Start Date: 07/14/15 Status: Ordered Repeat number: 1 spironolactone 50 mg oral tablet Start: 07/14/15 10:34:00 AM EDT, 1 tab, PO, Daily Start Date: 07/14/15 Status: Ordered Repeat number: 1 tamsulosin 0.4 mg oral capsule Start: 02/22/25 4:44:00 PM EDT, 1 cap, PO, Daily, Disp# 90 cap, Refills: 3, [id number] Start Date: 02/22/25 Status: Ordered Quantity: 90.0 Unit: cap Repeat number: 4 Indications: Benign prostatic hyperplasia with lower urinary tract symptoms; Zetia 10 mg oral tablet Start: 02/13/25 2:06:00 PM EDT, 1 tab, PO, Daily, Disp# 30 tab, Refills: 5, Note to Pharmacy: resending per request, Pharmacy: 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 3 Confirmed Active Coronary artery disease Confirmed Active MRSA (methicillin resistant staph aureus) culture positive 4 Confirmed 04/27/23 Active Heart failure Confirmed Active History of CVA (cerebrovascular accident) 5 Confirmed Active Hypercholesterolemia Confirmed Active HTN (hypertension) Confirmed Active Impaired fasting glucose Confirmed Active Left carotid artery occlusion Confirmed Active Multiple thyroid nodules 6 Confirmed 06/06/19 Active HAMMAD on CPAP Confirmed Active Urinary retention Confirmed Active Seasonal allergies Confirmed Active Positive colorectal cancer screening using DNA-based stool test 7 Confirmed 12/20/19 Active Osteopenia determined by x-ray. Confirmed Active 1now moderate to severe 2mild to moderate 3right thumb only was deformed, removed later. Lef thumb is normal 41+ STAPHYLOCOCCUS AUREUS (RESISTANT TO OXACILLIN) (*MRSA*) from WOUND SWAB SKIN CYST collected 04/27/2023 09:40 5two 6bilat. on carotid US 7Pt. absoluteley and repeatedly refuses f/u colonoscopy, with full knowledge that finding a curable colon cancer now might be lifesaving.. Diagnosis Diagnosis Type Effective Dates Health Status Cl inical Service Informant Aortic stenosis Discharge Diagnosis 02/26/25 Non-Specified Syncope Discharge Diagnosis 02/26/25 Non-Specified Urinary retention Discharge Diagnosis 02/26/25 Non-Specified BPH with obstruction/lowe r urinary tract symptoms Discharge Diagnosis 02/26/25 Non-Specified HTN (hypertension) Discharge Diagnosis 02/27/25 Non-Specified Bocanegra catheter status Discharge Diagnosis 02/27/25 Non-Specified Coronary artery disease Discharge Diagnosis 02/27/25 Non-Specified Atrial flutter Discharge Diagnosis 02/28/25 Non-Specified Fever Discharge Diagnosis 03/01/25 Non-Specified Procedures Procedure Date Related Diagnosis Body Site Status Doppler ultrasonography of c arotid artery 1 10/22/22 Completed DEXA Bone Densitometry 2 03/19/21 Completed Stool DNA-based colorectal c ancer screening 3 12/06/19 Completed Chest x-ray 4 06/28/19 Completed Carotid artery ultrasound 5 06/06/19 Completed Echocardiogram 6 06/06/19 Complete d Chest x-ray 7 02/22/[address] of chest 8 04/30/13 Completed 1Impression: No hemodynamically significant stenosis of the right ICA. Chronic occlusion of the left ICA. Normal antegrade vertebral flow bilaterally. 2Assesment: The BMD measured at AP Spine L1-L4 is 1/081 g/cm with a T-Score of -1.3 is considered moderately low. Fracture risk is moderate. Treatment is advised if there are other risk factors. The BMD measured at Femur Neck Left is 0.888g/cm with a T- Score of -1.4 is considered moderately low. Fracture risk is moderate. Treatment is advised if there are other risk factors. The BMD measured at Femur Neck Right is 0.922 g/cm with a T-Score of -1.1 is considered moderately low. Fracture risk is moderate. Treatment is advised if there are other risk factors. The BMD measured at femur total left is 1.016 g/cm with T-Score of -0.6 is normal. Fracture risk islow. The BMD measured at Femur Total Right is 1/046 g/cm with a T-Score of -0.4 is normal. Fracture riskis low. With a Z- Score of -0.8 this patients BMD is considered within normal limits relative to their age.Even so, they may be considrered osteopenic or osteoporotic, which is normal for this age. 3negative 4Negative chest. No evidence for significant nodularity by routine imaging criteria. 5Moderate plaque within the proximal right internal carotid artery without evidence for a hemodynamically significant stenosis. Chronic occlusion of the left internal carotid artery, as shown on ultrasound of March 06, 2010. Elevated blood pressure, as above. 6The ventricle is borderline dilated There is mild concentric left ventricular hypertrophy left ventricular systolic function is normal grade ! diastolic dysfunction (abnormal relaxation pattern) The left atrium is mildly dilated The right atrium is mildly dilated Mild to moderate valvular aortic stenosis 7Cardiomegaly with no active disease in chest. There are at least 2 pulmonary nodules identified measuring up to 9mm. A nonemergent f/u chest CT could be considered for reassessment if clinically warranted. 8Stable bilateral pulmonary nodules. A left thyroid nodule is again seen as well. Shotty mediastinallymph nodes but no evidence of pathologic dayan enlargement. Results Laboratory List Name Date Added on Lab order 03/01/25 Magnesium Level 03/01/25 Phosphorus Level 03/01/25 Complete Blood Count (CBC w Platelets) Comprehensive Metabolic Panel (CMP) MRSA Surveillance (Nasal Swab) (MRSA ADM ISSION (VERIFICATION LEAD)) 02/28/25 Urine Analysis w/ Reflexed Microscopic. (UA w/ Reflexed Microscopic.) 02/28/25 Complete Blood Count w Differential (CBC w Platelets and Diff) 02/28/25 ACT, Celite, by IStat (Line Tender) (ACT CE LITE ISTAT (CATH)) 02/28/25 Comprehensive Metabolic Panel (CMP) Magnesium Level 02/28/25 Phosphorus Level 02/28/25 Complete Blood Count (CBC w Platelets) Blood Type (ABO/Rh) (ABO/RH) 02/27/25 Blood Type/Antibody Screen ( for possible transfusion) (Type and Screen (for possible transfusion)) 02/27/25 NT-Pro BNP (BNP, NT-Pro) 02/27/25 Comprehensive Metabolic Panel (CMP) 02/27 Magnesium Level 02/27/25 Phosphorus Level 02/27/25 Urine Analysis w/ Reflexed Microscopic. (UA w/ Reflexed Microscopic.) 02/26/25 Complete Blood Count w Differential (CBC w Platelets and Diff) 02/26/25 Glucose Meter (GLUCOSE METER) 02/26/25 Most recent to oldest [Reference Range]: 1 2 3 ABO/Rh O POSITIVE (02/27/25 5:05 PM) O POSITIVE (02/27/25 5:00 PM) Antibody Scr NEGATIVE (02/27/25 5:00 PM) Expires at 0600AM on 03/02/2025,0600 (02/27/25 5:00 PM) # Units 0 (02/27/25 5:00 PM) R Number NRQ (02/27/25 5:00 PM) eGFR CKD-EPI [>60 mL/min/1.73 m2] 63 mL/min/1.73 m2 (03/01/25 5:36 AM) 76 mL/min/1.73 m2 (02/28/25 5:46 AM) 78 mL/min/1.73 m2 (02/27/25 4:45 AM) Request of Physician rexx (02/28/25 9:06 AM) Action Taken FORWARDED TO TESTING LAB 1 (02/28/25 9:06 AM) BNP, NT-Pro [<125 pg/mL] 126 pg/mL *HI* (02/27/25 5:00 PM) Estimated CrCl 61.85 mL/min (5/2/25 5:36 AM) 72.45 mL/min (02/28/25 5:46 AM) 73.86 mL/min (02/27/25 4:45 AM) MPV [9.0-12.2 fL] 10.5 fL (03/01/25 5:36 AM) 10.4 fL (02/28/25 8:12 PM) 10.5 fL (02/28/25 5:46 AM) Immature Gran% 0.3 % (02/28/25 8:12 PM) 0.4 % (02/26/25 10:27 AM) Neut% 83.8 % (02/28/25 8:12 PM) 73.3 % (02/26/25 10:27 AM) Lymph% 6.5 % (02/28/25 8:12 PM) 13.7 % (02/26/25 10:27 AM) [place]% 8.4 % (02/28/25 8:12 PM) 9.2 % (02/26/25 10:27 AM) Baso% 0.4 % (02/28/25 8:12 PM) 0.6 % (02/26/25 10:27 AM) Eos% 0.6 % (02/28/25 8:12 PM) 2.8 % (02/26/25 10:27 AM) Immat Gran, Abs [0-0.4 K/uL] 0.04 K/uL (02/28/25 8:12 PM) 0.03 K/uL (02/26/25 10:27 AM) Neut, Abs [2.0-7.7 K/uL] 9.72 K/uL *HI* (02/28/25 8:12 PM) 6.00 K/uL (02/26/25 10:27 AM) Lymph, Abs [1.0-3.4 K/uL] 0.76 K/uL *LOW* (02/28/25 8:12 PM) 1.12 K/uL (02/26/25 10:27 AM) [place], Abs [0-1.0 K/uL] 0.97 K/uL (02/28/25 8:12 PM) 0.75 K/uL (02/26/25 10:27 AM) Baso, Abs [0-0.1 K/uL] 0.05 K/uL (02/28/25 8:12 PM) 0.05 K/uL (02/26/25 10:27 AM) Eos, Abs [0-0.5 K/uL] 0.07 K/uL (02/28/25 8:12 PM) 0.23 K/uL (02/26/25 10:27 AM) Type of Diff: AUTO (02/28/25 8:12 PM) AUTO (02/26/25 10:27 AM) RDW [11.5-14.2 %] 13.5 % (03/01/25 5:36 AM) 13.4 % (02/28/25 8:12 PM) 13.6 % (02/28/25 5:46 AM) Component RED CELLS (02/27/25 5:00 PM) Squamous Epithelial Cells (u) NONE (02/28/25 8:13 PM) Mucous (u) FEW (02/28/25 8:13 PM) MRSA Surveillance, on Admission [MSND] MRSA NOT detected (02/28/25 8:43 PM) Anion Gap [5-14 mmol/L] 14 mmol/L (03/01/25 5:36 AM) 13 mmol/L (02/28/25 5:46 AM) 11 mmol/L (02/27/25 4:45 AM) Alb [3.5-5.2 g/dL] 3.5 g/dL (03/01/25 5:36 AM) 3.6 g/dL (02/28/25 5:46 AM) 3.2 g/dL *LOW* (02/27/25 4:45 AM) Alk Phos [40-130 unit/L] 91 unit/L 2 (03/01/25 5:36 AM) 91 unit/L 3 (02/28/25 5:46 AM) 76 unit/L 4 (02/27/25 4:45 AM) ALT [0-41 unit/L] 28 unit/L (03/01/25 5:36 AM) 31 unit/L (02/28/25 5:46 AM) 28 unit/L (02/27/25 4:45 AM) AST [0-40 unit/L] 34 unit/L (03/01/25 5:36 AM) 23 unit/L (02/28/25 5:46 AM) 25 unit/L (02/27/25 4:45 AM) Bact (u) [NONE-NONE] FEW *Abnormal* (02/28/25 8:13 PM) Bili (u) [NEG] NEGATIVE (02/28/25 8:13 PM) NEGATIVE (02/26/25 10:45 AM) BUN [6-23 mg/dL] 19 mg/dL (03/01/25 5:36 AM) 16 mg/dL (02/28/25 5:46 AM) 18 mg/dL (02/27/25 4:45 AM) Ca [8.4-10.2 mg/dL] 9.8 mg/dL (03/01/25 5:36 AM) 9.8 mg/dL (02/28/25 5:46 AM) 9.0 mg/dL (02/27/25 4:45 AM) Cl- [98-107 mmol/L] 104 mmol/L (03/01/25 5:36 AM) 105 mmol/L (02/28/25 5:46 AM) 111 mmol/L *HI* (02/27/25 4:45 AM) HCO3 [22-29 mmol/L] 20 mmol/L *LOW* (03/01/25 5:36 AM) 21 mmol/L *LOW* (02/28/25 5:46 AM) 19 mmol/L *LOW* (02/27/25 4:45 AM) Cret [0.70-1.30 mg/dL] 1.23 mg/dL (03/01/25 5:36 AM) 1.05 mg/dL (02/28/25 5:46 AM) 1.03 mg/dL (02/27/25 4:45 AM) Glu [74-109 mg/dL] 148 mg/dL 5 *HI* (03/01/25 5:36 AM) 127 mg/dL 6 *HI* (02/28/25 5:46 AM) 114 mg/dL 7 *HI* (02/27/25 4:45 AM) Gluc Meter [74-109 mg/dL] 138 mg/dL *HI* (02/26/25 10:26 AM) Hct [39-48 %] 43.8 % (03/01/25 5:36 AM) 44.9 % (02/28/25 8:12 PM) 44.5 % (02/28/25 5:46 AM) Hgb [13.0-17.0 g/dL] 14.9 g/dL (03/01/25 5:36 AM) 15.0 g/dL (02/28/25 8:12 PM) 15.0 g/dL (02/28/25 5:46 AM) K [3.5-5.1 mmol/L] 3.7 mmol/L 8 (03/01/25 5:36 AM) 3.9 mmol/L (02/28/25 5:46 AM) 3.8 mmol/L 9 (02/27/25 4:45 AM) Ketones [NEG mg/dL] TRACE mg/dL *Abnormal* (02/28/25 8:13 PM) NEGATIVE mg/dL (02/26/25 10:45 AM) Leuk Est [NEG] TRACE *Abnormal* (02/28/25 8:13 PM) NEGATIVE (02/26/25 10:45 AM) MCH [28-33 pg] 30.7 pg (03/01/25 5:36 AM) 30.4 pg (02/28/25 8:12 PM) 30.8 pg (02/28/25 5:46 AM) MCHC [32-36 g/dL] 34.0 g/dL (03/01/25 5:36 AM) 33.4 g/dL (02/28/25 8:12 PM) 33.7 g/dL (02/28/25 5:46 AM) MCV [81-96 fL] 90.3 fL (03/01/25 5:36 AM) 90.9 fL (02/28/25 8:12 PM) 91.4 fL (02/28/25 5:46 AM) Mg [1.6-2.6 mg/dL] 1.9 mg/dL (03/01/25 5:36 AM) 2.0 mg/dL (02/28/25 5:46 AM) 1.7 mg/dL (02/27/25 4:45 AM) Na [136-145 mmol/L] 138 mmol/L (03/01/25 5:36 AM) 139 mmol/L (02/28/25 5:46 AM) 141 mmol/L (02/27/25 4:45 AM) Nitrite (u) [NEG] NEGATIVE (02/28/25 8:13 PM) NEGATIVE (02/26/25 10:45 AM) PO4 [2.5-4.5 mg/dL] 3.3 mg/dL (03/01/25 5:36 AM) 3.4 mg/dL (02/28/25 5:46 AM) 3.3 mg/dL (02/27/25 4:45 AM) Plts [150-350 K/uL] 175 K/uL (03/01/25 5:36 AM) 220 K/uL (02/28/25 8:12 PM) 222 K/uL (02/28/25 5:46 AM) RBC [4.40-5.60 M/uL] 4.85 M/uL (03/01/25 5:36 AM) 4.94 M/uL (02/28/25 8:12 PM) 4.87 M/uL (02/28/25 5:46 AM) ACT (Celite), POC [74-125 seconds] 251 seconds *HI* (02/28/25 9:08 AM) T Bili [0.0-1.2 mg/dL] 1.7 mg/dL *HI* (03/01/25 5:36 AM) 0.9 mg/dL (02/28/25 5:46 AM) 0.7 mg/dL (02/27/25 4:45 AM) Prot [6.4-8.3 g/dL] 7.0 g/dL (03/01/25 5:36 AM) 7.0 g/dL (02/28/25 5:46 AM) 5.9 g/dL *LOW* (02/27/25 4:45 AM) Appear (u) SLIGHTLY CLOUDY (02/28/25 8:13 PM) CLEAR (02/26/25 10:45 AM) Color (u) YELLOW (02/28/25 8:13 PM) YELLOW (02/26/25 10:45 AM) Glu (u) [NEG mg/dL] 150 mg/dL *Abnormal* (02/28/25 8:13 PM) NEGATIVE mg/dL (02/26/25 10:45 AM) Hgb (u) [NEG] MODERATE *Abnormal* (02/28/25 8:13 PM) NEGATIVE (02/26/25 10:45 AM) pH (u) [5.0-8.0 unit] 7.0 unit (02/28/25 8:13 PM) 5.0 unit (02/26/25 10:45 AM) Prot (u) [NEG mg/dL] 100 mg/dL *Abnormal* (02/28/25 8:13 PM) NEGATIVE mg/dL (02/26/25 10:45 AM) RBC (u) [0-4 /HPF] 50+ /HPF (02/28/25 8:13 PM) Urobili [0.1-1.0 EU/dL] 0.1-1.0 EU/dL (02/28/25 8:13 PM) 0.1-1.0 EU/dL (02/26/25 10:45 AM) SG [1.005-1.030] 1.025 (02/28/25 8:13 PM) 1.015 (02/26/25 10:45 AM) WBC (u) [0-4 /HPF] 5-9 /HPF (02/28/25 8:13 PM) WBC [4.0-10.4 K/uL] 10.92 K/uL *HI* (03/01/25 5:36 AM) 11.61 K/uL *HI* (02/28/25 8:12 PM) 7.79 K/uL (02/28/25 5:46 AM) 1Result Comment: YES 2Result Comment: Low levels of ALKP may indicate a deficiency in zinc, magnesium, or malnutritionbutcan also be an indicator of a rare genetic disease hypophosphatasia (HPP). 3Result Comment: Low levels of ALKP may indicate a deficiency in zinc, magnesium, or malnutritionbutcan also be an indicator of a rare genetic disease hypophosphatasia (HPP). 4Result Comment: Low levels of ALKP may indicate a deficiency in zinc, magnesium, or malnutritionbutcan also be an indicator of a rare genetic disease hypophosphatasia (HPP). 5Result Comment: ADA recommendation for FASTING Serum/Plasma Glucose: Normal: 70-100 mg/dL Prediabetes: 100-125 mg/dL Diabetes: 126 mg/dL or higher 6Result Comment: ADA recommendation for FASTING Serum/Plasma Glucose: Normal: 70-100 mg/dL Prediabetes: 100-125 mg/dL Diabetes: 126 mg/dL or higher 7Result Comment: ADA recommendation for FASTING Serum/Plasma Glucose: Normal: 70-100 mg/dL Prediabetes: 100-125 mg/dL Diabetes: 126 mg/dL or higher 8Result Comment: HEMOLYZED SPECIMEN 9Result Comment: HEMOLYZED SPECIMEN Orders for Microbiology Reports Name Date Respiratory Pathogen Panel, by PCR (RESP IRATORY PATHOGEN PCR) 02/28/25 Urine Culture (CULTURE, URINE) 02/28/25 Blood Culture (Aerobic AND Anaerobic) 02/28/25 Blood Culture (Aerobic AND Anaerobic) 02/28/25 Microbiology Reports TEST:Respiratory Virus Panel, by PCR STATUS:Auth (Verified) BODY SITE: SOURCE:Nasal/Pharyngeal COLLECTED DATE/TIME:02/28/25 8:43 PM Status FINAL 02/28/2025 TEST:Urine.Cx STATUS:Auth (Verified) BODY SITE: SOURCE:Urine COLLECTED DATE/TIME:02/28/25 8:13 PM Culture NO GROWTH 1 DAY TEST:Blood.Cx STATUS:Unauthenticated BODY SITE: SOURCE:Blood COLLECTED DATE/TIME:02/28/25 8:12 PM Culture NO GROWTH IN 3 DAYS TEST:Blood.Cx STATUS:Unauthenticated BODY SITE: SOURCE:Blood COLLECTED DATE/TIME:02/28/25 8:11 PM Culture NO GROWTH IN 3 DAYS Radiology Reports * Exam Date Time Procedure Performing Provider Status 03/01/25 9:45 AM XR Chest 1 View Final Notes: (XR Chest 1 View) Reason For Exam: new fever, r/o pna XR Chest 1 View EXAMINATION: XR Chest 1 View CLINICAL HISTORY: new fever, r/o pna COMPARISON: CT vascular exam dated 01/28/2025. FINDINGS: No pneumothorax or pleural pleural effusions. Lungs are clear. Heart size is normal. There are atherosclerotic calcifications of the aorta. Normal pulmonary vascularity. Intact osseous structures. IMPRESSION: No pneumonia. Workstation ID: [id number] Final Dictated by:MD Armas Benjamin Dictated DT/TM:03/01/2025 9:51 Signed by:MD Armas Benjamin Signed (Electronic Signature):03/01/2025 9:50 a * Exam Date Time Procedure Performing Provider Status 03/01/25 7:45 AM Echo TransTHORacic TTE Limited w/ Cont Final Notes: (Echo TransTHORacic TTE Limited w/ Cont) Reason For Exam: S/p #26mm(+1) TAVR Echo TransTHORacic TTE Limited w/ Cont Report Signatures Finalized by Lucinda Barrera MD on 03/01/2025 09:23 AM PA Act 112: No-No further action needed Summary 1. Suboptimal 2D images were enhanced with Definity per lab protocol. 2. Normal left ventricular size and systolic function with no regional wall motion abnormalities. 3. Estimated Ejection Fraction 55-60%. 4. Mild concentric left ventricular hypertrophy. 5. Inconclusive data to evaluate diastolic function. 6. Grossly normal RV size and function (based on limited visualization). 7. Transcatheter bioprosthetic aortic valve (26 mm Morrow Windy 3 Ultra Resilia) with appropriate gradients and no significant stenosis. At most trivial paravalvular regurgitation (based on suboptimal acoustic windows). 8. Insufficient data for estimation of pulmonary artery systolic pressures. 9. Compared to previous study from 04/08/22 , patient has undergone transcatheter bioprosthetic aortic valve with normally functioning TAVR bioprosthesis. Patient Info Name: DAVIDE NUNO Age: 69 years : 1955 Gender: Male Ht: 165 cm Wt: 102 kg BSA: 2.21 m2 HR: 71 bpm BP: 105 / 57 mmHg Heart Rhythm: Sinus Rhythm Technical Quality: Fair Exam Date: 03/01/2025 6:50 AM Exam Location: [facility] Patient Status: Inpatient Staff Ordering Physician: Nannette Koch Janitorial Manager: Carlos Laughlin RDCS Attending Physician: Cristopher Bobby PHYSICIAN Study Info CPT J3490 - [id number] - [id number] - 80736 - Indications Z95.2 - Aortic Valve Replacement - S/p #26mm(+1) TAVR Procedure(s) * A limited two-dimensional transthoracic echocardiogram was performed. * Color Doppler was performed. * Limited spectral Doppler was performed. * Suboptimal 2D images were enhanced with Definity per lab protocol. Exam Type: Cardiac Basic Left Ventricle Normal left ventricular size and systolic function with no regional wall motion abnormalities. Estimated Ejection Fraction 55-60%. Mild concentric left ventricular hypertrophy. Inconclusive data to evaluate diastolic function. Right Ventricle Grossly normal RV size and function (based on limited visualization). Left Atrium Normal left atrial size. Right Atrium Normal right atrial size. Aortic Valve Transcatheter bioprosthetic aortic valve (26 mm Omrrow Windy 3 Ultra Resilia) with appropriate gradients and no significant stenosis. At most trivial paravalvular regurgitation (based on suboptimal acoustic windows). Pulmonic Valve Pulmonic valve not well visualized. Mitral Valve Unremarkable mitral valve. Tricuspid Valve Tricuspid valve is not well visualized. Pericardium/Pleural No significant pericardial effusion. Inferior Vena Cava Small IVC with normal inspiratory collapse. Aorta Normal aortic root (3.3 cm). Left Ventricular Outflow Tract Name Value Normal LVOT 2D LVOT Diameter 2.5 cm LVOT Doppler LVOT Peak Velocity 1.09 m/s LVOT Peak Gradient 5 mmHg LVOT Mean Gradient 3 mmHg LVOT VTI 18.96 cm LVOT VTI/AV VTI Ratio 0.44 LVOT Stroke Volume 95.71 ml LVOT Stroke Volume Index 0.04 l/m2 LVOT Cardiac Output 6.80 l/min LVOT Cardiac Index 3.08 L/min/m2 Mitral Valve Name Value Normal MV Doppler MV PHT 69 ms MV Diastolic Function MV E Peak Velocity 0.76 m/s <=0.50 MV A Peak Velocity 0.87 m/s MV E/A 0.88 <=0.80 MV Decel Time 239 ms Tricuspid Valve Name Value Normal Estimated PAP/RSVP RA Pressure 3 mmHg <=5 TV Diastolic Function TV E Peak Velocity 0.52 m/s TV A Peak Velocity 0.55 m/s TV E/A 0.96 0.80-2.00 TV Decel Time 394 ms >=120 Aorta Name Value Normal Ascending Aorta Sinus of Valsalva Diameter 3.3 cm 3.1-3.7 Sinus of Valsalva Index 1.51 cm/m2 1.50-1.90 Venous Name Value Normal IVC/SVC IVC Diameter (Insp 2D) 0.2 cm IVC Diameter (Exp 2D) 0.8 cm <=2.1 IVC Diameter Percent Change (2D) 80 % >=50 Aortic Valve Name Value Normal AV Doppler AV Peak Velocity 2.30 m/s <2.00 AV Peak Gradient 21 mmHg AV Mean Gradient 12 mmHg <20 AV VTI 43.29 cm AV Area (Cont Eq VTI) 2.2 cm2 >=2.0 AV Area Index (Cont Eq VTI) 1.00 cm2/m2 AV Area (Cont Eq Sebastian) 2.4 cm2 AV Area Index (Cont Eq Sebastian) 1.08 cm2/m2 AV V1/V2 Ratio 0.47 AV Regurgitation 2D LVOT Area 5.0 cm2 Ventricles Name Value Normal LV Dimensions 2D/MM IVS Diastolic Thickness (2D) 1.2 cm 0.6-1.0 LVID Diastole (2D) 5.6 cm 3.6-5.6 LVIW Diastolic Thickness (2D) 1.2 cm 0.6-1.0 LVID Systole (2D) 3.9 cm 2.5-4.0 LVOT Diameter 2.5 cm LV Mass (2D Cubed) 275.71 g 88.00-224.00 LV Mass Index (2D Cubed) 0.01 g/cm2 0.00-0.01 Relative Wall Thickness (2D) 0.42 LV Fractional Shortening/Ejection Fraction 2D/MM LV Fractional Shortening (2D) 31 % 25-43 Atria Name Value Normal LA Dimensions LA Area (2C) 17.2 cm2 LA Length (2C) 5.4 cm LA Volume (2C A-L) 46.33 ml Final Signed by:MD Barrera Anisa Signed (Electronic Signature):03/01/2025 6:50 a Vital Signs Most recent to oldest [Reference Range]: 1 2 3 Height 165 cm (02/26/25 10:14 AM) Patient Weight 101 kg (03/01/25 6:48 AM) 102.0 kg (02/28/25 6:27 AM) 102.8 kg (02/27/25 4:54 AM) Body Mass Index 37.76 kg/m2 (02/27/25 4:54 AM) 38.02 kg/m2 (02/26/25 11:00 AM) 38.02 kg/m2 (02/26/25 10:14 AM) Temperature [36.5-37.9 DegC] 36.6 DegC (03/01/25 1:56 PM) 36.9 DegC (03/01/25 8:17 AM) 36.7 DegC (03/01/25 5:24 AM) Heart Rate 67 bpm (03/01/25 1:56 PM) 83 bpm (03/01/25 8:17 AM) 86 bpm (03/01/25 5:24 AM) Respiratory Rate 16 br/min (03/01/25 1:56 PM) 20 br/min (03/01/25 8:17 AM) 19 br/min (03/01/25 5:24 AM) Blood Pressure 100/58mmHg (03/01/25 1:56 PM) 141/82mmHg (03/01/25 8:19 AM) 130/85mmHg (03/01/25 5:24 AM) Mean Blood Pressure 72 mmHg (03/01/25 1:56 PM) 99 mmHg (03/01/25 8:19 AM) 97 mmHg (03/01/25 5:24 AM) Cuff Pulse Pressure 42 mmHg (03/01/25 1:56 PM) 45 mmHg (03/01/25 5:24 AM) 48 mmHg (03/01/25 1:00 AM) BP Location # 1 Right Arm (03/01/25 1:56 PM) Left Arm (03/01/25 8:19 AM) Right Arm, Non-invasive (03/01/25 5:24 AM) Social History Social History Type Response Smoking Status Never smoked cigaret karon Sex Male Sex Representation Male (finding) EKG study * Contributor_system, [email or web address]: VERIFY, PERFORM Event Display: EKG Authored Date: [id number] Please click on link to see image. * Contributor_system, [email or web address]: VERIFY, PERFORM Event Display: EKG Authored Date: [id number] Please click on link to see image. * Contributor_system, [email or web address]: VERIFY, MODIFY, PERFORM Event Display: EKG Authored Date: [id number] Please click on link to see image. Anes H&P * MD Masoud, Arnulfo Pete: PERFORM MD Masoud, Arnulfo Pete: PERFORM, SIGN MD Meredith Justin W: SIGN, VERIFY MD Meredith Justin W: VERIFY, MODIFY Event Display: Anes H&P Authored Date: [id number] Patient: DAVIDE NUNO Age: 69 years Sex: Male : 1955 Associated Diagnoses: None Author: MD Meredith Justin W Preoperative Information Pre-Operative Diagnosis: Severe Aortic stenosis . Anesthiesia Preop Info: Procedure: TRANSFEMORAL TAVR Date: 02/28/25 08:30 Surgeons: MD Mcgowan Kentaro Diagnosis: . History of Present Illness DAVIDE NUNO is a 69 Years old, 103.5kg Male with a past medical history of severe aortic stenosis (peak velocity 3.3 m/s, mean gradient 28 mmHg, AVAi 0.5 cm2/m2), multivessel CAD (cardiac cath in 2016 with ostial RCA, distal left circumflex, and borderline mid LAD disease), hypertension, hyperlipidemia, HAMMAD on CPAP, left carotid artery disease, and 2 prior CVAs who presents today forsyncope. Patient recently underwent aortic evaluation workup where he was discovered to have an enlarged bladder. Patient was provided Urology referral which he followed up with today and developed asyncopal like episode. Etiology is Severe Aortic Stenosis in setting of poor oral intake the past 24 hours. Patient had low pressures at the time of the episode as a result and improved once he received fluids en route to the ED. Now scheduled for a TAVR on 02/28 NPO: Scheduled for midnight 02/27 ACCESS: Left AC 20 G PREVIOUS AIRWAY/ANESTHETICS: None Documented TYPE AND SCREEN/CROSS: None RECENT TRANSFUSIONS: None INFUSIONS: None MOST RECENT CARDIAC CATH/ANGIOGRAM: 02/12/2025 Impression * Multivessel CAD (70% ostial D1, 50% distal Cx, 70% heavily calcified RCA with multiple lesions (70% ostial RCA , 50% mid-RCA, 50% mid-RCA 50%, and 80% mid- distal RCA near the acute margin). * Uncomplicated left radial artery cannulation (6 Fr). MOST RECENT TTE/AR: TTE 04/21 Summary 1. Technically difficult study due to patient body habitus; Successfully enhanced with Definity contrast per lab protocol for better endocardial definition. 2. Normal left ventricular size and systolic function with no regional wall motion abnormalities. 3. Ejection fraction as calculated by Biplane Simpsons method is 60%. 4. Borderline mild concentric left ventricular hypertrophy. 5. Grade I diastolic dysfunction of the left ventricle (impaired relaxation pattern) with indeterminate left atrial pressure. 6. Mildly dilated right ventricle with normal systolic function. 7. Mildly dilated left atrium. 8. Heavily calcified, tricuspid aortic valve. Moderate to severe aortic stenosis (LVOT/AV ratio is 0.23; FRANKLYN is 1.0 cm2; AV mean PG is 28 mmHg). 9. Insufficient data for estimation of pulmonary artery systolic pressures. 10. No prior studies for comparison. STUDIES: None OXYGEN REQUIREMENT / VENTILATOR SETTINGS: No qualifying data available. CRRT: PERTINENT LABS: BMI: 37.76 kg/m2 BMP: Date Na K Cl HC03 BUN Cret Glu Ca 02/27/2025 04:45 141 3.8 111 19 18 1.03 114 9.0 02/26/2025 10:27 140 4.2 104 22 21 1.16 148 10.0 CBC: Date WBC Hgb Hct Plts Neut, Abs 02/27/2025 04:45 8.7 14.6 43.0 215 02/26/2025 10:27 8.2 14.8 43.8 237 6.0 M.7 Phos: 3.3 Medical History Medical Devices: Medical Devices: none . Health Status Allergies: Allergic Reactions (Selected) Severity Not Documented Dust- Rhinitis. Pollen- Rhinitis. Ragweed- Rhinitis. Trees- Rhinitis. Tylenol- No reactions were documented.. Medications: Medication List (Selected) Prescriptions Prescribed Zetia 10 mg oral tablet: 1 tab, PO, Daily, 30 tab, 5 Refill(s) aspirin 81 mg oral delayed release tablet: 1 tab, PO, Daily, 100 tab, 10 Refill(s) atorvastatin 80 mg oral tablet: 1 tab, PO, qhs, 90 tab, 3 Refill(s) irbesartan 300 mg oral tablet: 1 tab, PO, Daily, 90 tab, 0 Refill(s) tamsulosin 0.4 mg oral capsule: 1 cap, PO, Daily, 90 cap, 3 Refill(s) Documented Medications Documented furosemide 40 mg oral tablet: 1 tab, PO, Daily isosorbide mononitrate 60 mg oral tablet, extended release: 1 tab, PO, qAM multivitamin: 1 tab, PO, Daily nitroglycerin 0.4 mg sublingual tablet: 1 tab, SL, q5min, PRN: as needed for chest pain, tab potassium chloride 20 mEq oral tablet, extended release: 1 tab, PO, Daily spironolactone 50 mg oral tablet: 1 tab, PO, Daily. Histories Procedure History: Doppler ultrasonography of carotid artery ([id number]) on 10/22/2022 at 67 Years. Comments: 10/25/2022 12:02 YULI Stallworth LPN, Katrina Impression: No hemodynamically significant stenosis of the right ICA. Chronic occlusion of the left ICA. Normal antegrade vertebral flow bilaterally. DEXA Bone Densitometry ([id number]) on 03/19/2021 at 65 Years. Comments: 03/25/2021 11:15 JES Gonzalez LPN, Annette Assesment: The BMD measured at AP Spine L1-L4 is 1/081 g/cm with a T-Score of -1.3 is considered moderately low. Fracture risk is moderate. Treatment is advised if there are other risk factors. The BMD measured at Femur Neck Left is 0.888g/cm with a T- Score of -1.4 is considered moderately low. Fracture risk is moderate. Treatment is advised if there are other risk factors. The BMD measured at Femur Neck Right is 0.922 g/cm with a T-Score of -1.1 is considered moderately low. Fracture risk is moderate. Treatment is advised if there are other risk factors. The BMD measured at femur total left is 1.016 g/cm with T-Score of -0.6 is normal. Fracture risk islow. The BMD measured at Femur Total Right is 1/046 g/cm with a T-Score of -0.4 is normal. Fracture riskis low. With a Z- Score of -0.8 this patients BMD is considered within normal limits relative to their age.Even so, they may be considrered osteopenic or osteoporotic, which is normal for this age. Stool DNA-based colorectal cancer screening ([id number]) on 12/06/2019 at 64 Years. Comments: 2022 13:59 JES Arambula MD, Jonathan D negative Chest x-ray ([id number]) on 06/28/2019 at 64 Years. Comments: 06/28/2019 13:55 JES Morrow LPN, Lindsey Negative chest. No evidence for significant nodularity by routine imaging criteria. Carotid artery ultrasound on 06/06/2019 at 64 Years. Comments: 06/07/2019 11:38 JES Morrow LPN, Lindsey Moderate plaque within the proximal right internal carotid artery without evidence for a hemodynamically significant stenosis. Chronic occlusion of the left internal carotid artery, as shown on ultrasound of March 06, 2010. Elevated blood pressure, as above. Echocardiogram ([id number]) on 06/06/2019 at 64 Years. Comments: 06/15/2019 08:36 JES Orr LPN, Lori The ventricle is borderline dilated There is mild concentric left ventricular hypertrophy left ventricular systolic function is normal grade ! diastolic dysfunction (abnormal relaxation pattern) The left atrium is mildly dilated The right atrium is mildly dilated Mild to moderate valvular aortic stenosis Chest x-ray ([id number]) on 02/22/2017 at 61 Years. Comments: 05/18/2019 13:56 JES Foster LPN, Vanessa T Cardiomegaly with no active disease in chest. There are at least 2 pulmonary nodules identified measuring up to 9mm. A nonemergent f/u chest CT could be considered for reassessment if clinically warranted. CT of chest ([id number]) on 04/30/2013 at 58 Years. Comments: 05/18/2019 13:57 JES Foster LPN, Vanessa T Stable bilateral pulmonary nodules. A left thyroid nodule is again seen as well. Shotty mediastinallymph nodes but no evidence of pathologic dayan enlargement.. 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 Never smoked cigarettes Other Tobacco Use: Never used other tobacco products Alcohol: Recreational Drugs: . Physical Examination VS/Measurements: Vital Signs 02/27/2025 20:06 EDT Systolic Blood Pressure 143 mmHg Diastolic Blood Pressure 89 mmHg Mean Blood Pressure 106 mmHg 02/27/2025 20:06 EDT BP Location # 1 Right Arm, Non-invasive BP Cuff Size Regular Cuff Pulse Pressure 54 mmHg 02/27/2025 20:04 EDT MEWS Score 2 02/27/2025 20:00 EDT Heart Rate 69 bpm Respiratory Rate 28 br/min 02/27/2025 20:00 EDT Temperature 37.2 DegC Temperature Route Temporal Oxygen Therapy Room Air SpO2 95 % . Airway: Mallampati classification: II (soft palate, fauces, uvula visible). Mouth: Within normal limits, Teeth ( Within normal limits ). Respiratory: Respirations are non-labored. Cardiovascular: Good pulses equal in all extremities. Anesthesiologist Assessment and Plan Problems: No previous anesthetic complications. Cardiac risk factors: High risk surgery, CAD. Risk of major adverse cardiac event (Revised Cardiac Risk Index): 2 = 7%. Cardiovascular risk associated with the procedure: Elevated (>=1%). Disposition: No further testing or evaluation indicated preoperatively, may proceed with procedure as scheduled. ASA Classification: Class IV. Anesthetic Plan: Premedication: Intravenous. Anesthetic technique discussed: Monitored anesthesia care, GA if needed. Induction discussed: Intravenously. Airway plan discussed: Nasal Cannula. Risks discussed: Nausea-vomiting, Headache, Sore throat, Dental injury, Eye injury, Allergic reaction, Nerve damage. Informed consent: Signed by patient. History, Physical Exam, Assessment and Plan Completed: 02/27/2025 20:22:00, MD Joss, [facility]. Electronic Signature on File Electronically Reviewed/Signed by: Arnulfo Meredith MD Author Signature Dt/Tm:02/28/2025 08:37 AM Department of Anesthesia [facility] * MD Diamante, Cristopher P: MODIFY Alexa, DO, Mohammad S: MODIFY, MODIFY Alexa, DO, Mohammad S: MODIFY, PERFORM Alexa, DO, Mohammad S: PERFORM, MODIFY Alexa, DO, Mohammad S: MODIFY, MODIFY Alexa, DO, Mohammad S: MODIFY, MODIFY Alexa, DO, Mohammad S: MODIFY Event Display: H&P Authored Date: [id number] Name: DAVIDE NUNO Patient Number: [id number] : 1955 Date of Service: 02/26/2025 Chief Complaint at the clinic talking about putting bocanegra in and then had a syncopal episode. about 1.5 l in his bladder at this time History of Present Illness Mr. Nuno is a 69-year-old gentleman with a medical history significant for severe aortic stenosis (peak velocity 3.3 m/s, mean gradient 28 mmHg, AVAi 0.5 cm2/m2), multivessel CAD (cardiac cath in 2017 with ostial RCA, distal left circumflex, and borderline mid LAD disease), hypertension, hyperlipidemia, HAMMAD on CPAP, left carotid artery disease, and 2 prior CVAs who presents today for syncope. Patient previously seen on 02/12/25 for aortic valve evaluation. Patient underwent LHC which revealed heavily calcified RCA with multiple lesions. Patient was instructed to follow up with Urology outpatient after CT findings revealed an enlarged bladder prior to TAVR consideration Patient was being evaluated at Urology office earlier today for bladder distention and prostatomegaly. Patient was recently started on Flomax on 02/22/25 and denied having any negative side effects from the medications. Patient was discussing having a Bocanegra catheter placed with the urology team today given he hasretained about 1.7L of urine and while sitting on the exam table, patient experienced a brief syncopal episode that lasted 2-3 seconds. While in the middle of the visit patient then had a syncopal episode while sitting on the exam table. His and the physician slowly lowered him onto the exam table. 911 was called and arapid response was also called. His blood pressure at that time was running 70s/50s, pulse ox 100%. Glucose was 152. The rapid response team then arrived and assumed care of this patient. AnIV was placed and patient was started on IV fluids once stable he was then transferred to the ED via wheelchair with the rapid response team. Lab workup upon Arrival in the ED was unremarkable. During the time of my interview with the patient, he denies any prodromal symptoms prior to syncope. Patient also denies confusion post episode aswell. This is the f irst time this has ever happened. Patient admits to not having anything to drink or eat all day without any reasoning. Patient also did not have much sleep the past day after completing a sleep study for his HAMMAD. Denies chest pain, dyspnea, palpitations, headaches, postictalstate, tongue biting. Ortho static vitals reveal:Lying Down HR: 73 BP: 155/104 (118), Sitting HR: 92 BP: 181/135 (147) Standing: Hr: 86 BP: 163/96 Relevant cardiac studies and medications: EC01/28/25 Sinus bradycardia TTE 04/09/22: EF 60% moderate-severe FRANKLYN 1.0cm^2. Grade I Diastolic dysfunction of left ventricle coronary angiography: 02/12/25 [facility] Multivessel CAD (70% ostial D1, 50% distal Cx, 70% heavily calcified RCA with multiple lesions (70% ostial RCA , 50% mid- RCA, 50% mid-RCA 50%, and 80% mid-distal RCA near the acute margin Relevant cardiac medications: Atorvastatin 80mg, Furosemide 40mg, Isosorbide mononitrate 60mg, Spironolactone 50mg, Irbesartan 300mg, Zetia 10mg Patient will be admitted to Acute Cardiology for Syncope secondary to Aortic Stenosis. Review of Systems All other review of systems completed and are negative except as described in the HPI above. Physical Exam Vitals & Measurements T: 36.7 °C HR: 72 (Monitored) RR: 17 BP: 153/89 SpO2: 96% Oxygen Therapy: Room Air HT: 165 cm WT: 103.5 kg WT: 103.500 kg (Dosing) BMI: 38.02 General: A &O x4, well-appearing, no acute distress HEENT: normocephalic, atraumatic. Dry oral mucous membranes Heart: Regular rate. 4/6 Systolic murmur prominent in RUSB. 2nd heart sounds unclear on auscultation. Normal JVP. Lungs: non-labored breathing, clear to auscultation bilaterally Abdomen: soft and non-tender in all four quadrants, bowel sounds present Extremity: moves all extremities spontaneously, no peripheral edema Skin: warm and dry, no lesions or rashes noted Neuro: cranial nerve exam unremarkable, sensation and strength grossly intact Psych: appropriate mood and affect Diagnostic Results (01/28/2025 14:[address] Angio Abdomen and Pelvis) IMPRESSION: 1. Preprocedural CT angiogram planning for TAVR. Aortic and iliofemoral measurements as above. Severe aortic valvular calcifications. Severe coronary artery atherosclerotic calcifications. 2. Multiple solid lung nodules as detailed above. The largest measures 16 mm in the right upper lobe but was present on the CT dated 04/30/2013 when it measured 11 mm. However, there is a new additional right upper lobe solid 6 mm lung nodule. Recommend CT at 6-12 months for follow up. 3. Heterogeneous and mildly enlarged thyroid gland, similar to CT dated 11/06/2012. Largest thyroidnodule measures 2.4 cm on the left. Recommend nonurgent thyroid ultrasound. 4. Markedly enlarged urinary bladder and prostamegaly. Clinical correlation for urinary retentionor urinary bladder outlet obstruction is recommended. This finding was communicated to Dr. Anderson at10:46 AM on 01/29/2025 by secured messaging and confirmation of receipt. Assessment/Plan Mr. Nuno is a 69-year-old gentleman with a medical history significant for severe aortic stenosis (peak velocity 3.3 m/s, mean gradient 28 mmHg, AVAi 0.5 cm2/m2), multivessel CAD (cardiac cath in 2017 with ostial RCA, distal left circumflex, and borderline mid LAD disease), hypertension, hyperlipidemia, HAMMAD on CPAP, left carotid artery disease, and 2 prior CVAs who presents today for syncope. Patient recently underwent aortic evaluation workup where he was discovered to have an enlarged bladder. Patient was provided Urology referral which he followed up with today and developed a syncopal like episode. Etiology is Severe Aortic Stenosis in setting of poor oral intake the past 24 hours. Ervin hope had low pressures at the time of the episode as a result and improved once he received fluidsen route to the ED. #Syncope 2/2 Severe Aortic Stenosis Low suspicion for neurogenic etiology. Ortho static vitals came back negative but may have been a component given his lack of intake the past 24 hours and alleviated once he received fluids en route to the ED. TTE 04/09/22: EF 60% moderate-severe FRANKLYN 1.0cm^2. Grade I Diastolic dysfunction of left ventricle - Plan for TAVR this week - Will provide 1L NS bolus and encourage oral hydration afterwards - Continue Telemetry #BPH w/ urinary obstruction Pre-TAVR workup revealed findings above. Plan was to have this issue managed prior to any TAVR initially. PVR 1.9L noted today at Urology outpatient clinic. Patient was prescribed Flomax without anynegative side effects - Can start Flomax 0.4mg daily - Monitor output #HTN Home med: Furosemide 40mg, Isosorbide mononitrate 60mg, Spironolactone 50mg, Irbesartan 300mg - Given Severe Aortic Stenosis, will be very cautious on being aggressive with starting BP meds dueto the risk of its rapid decrease Chronic Conditions #HLD: Home med: Zetia 10mg, Atorvastatin 80mg #HAMMAD: Patient takes CPAP qhs #Obesity: Complicates all aspects of care #Lung Nodule: Repeat CT in 6-12 months outpatient Home Meds Held: TBD Fluids: None Diet: Heart Healthy DVT PPx: pLov Glucose: AC and HS checks given poor intake PT/OT: TBD Dispo: Med-Surg Tele Estimated discharge date: >72 hours Barriers: TAVR Discharge Needs: TBD CODE STATUS: Full POA / NOK: Attestation Attending Addendum: I saw and examined the patient, reviewed pertinent labs and studies, and discussed the plan of carewith the documenting house staff and team. The plan of care was presented to the patient and/or family members. I performed or confirmed a comprehensive, 14-point review of systems. All pertinent positives and negatives are summarized above. All other systems are negative. I agree with the above documented note with the following addendum: Established w our SHD/valve team with plan for outpatient TAVR. Now with syncopal event. SHD team recommended admission for expedited inpatient TAVR. Patient describes his reduced PO intake asjust today because of travel, appointments, and subsequent ED evaluation. He was eating/drinkingnormally prior to today. Bocanegra placed in the ED (not associated w syncopal event). Patient and told by urology toanticipate this will stay in. We can curbside them to confirm this and engage them formally if needed. Cristopher Bobby MD 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 Positive colorectal cancer screening using DNA-based stool test Seasonal allergies Resolved Multiple pulmonary nodules Procedure/Surgical History •Doppler ultrasonography of carotid artery| Service Date: 10/22/2022•DEXA Bone Densitometry| Service Date: 03/19/2021•Stool DNA-based colorectal cancer screening| Service Date: 12/06/2019•Chest x-ray| Service Date: 06/28/2019•Echocardiogram| Service Date: 06/06/2019•Carotid artery ultras ound| Service Date: 06/06/2019•Chest x-ray| Service Date: 02/22/2017•CT of chest| Service Date:04/30/2013 Medications Home aspirin(aspirin 81 mg oral delayed release tablet), 81 mg= 1 tab, PO, Daily, 10 refills atorvastatin(atorvastatin 80 mg oral tablet), 1 tab, PO, qhs ezetimibe(Zetia 10 mg oral tablet), 10 mg= 1 tab, PO, Daily, 5 refills furosemide(furosemide 40 mg oral tablet), 40 mg= 1 tab, PO, Daily irbesartan(irbesartan 300 mg oral tablet), 1 tab, PO, Daily isosorbide mononitrate(isosorbide mononitrate 60 mg oral tablet, extended release), 60 mg= 1 tab, PO, qAM multivitamin, 1 tab, PO, Daily nitroglycerin(nitroglycerin 0.4 mg sublingual tablet), 0.4 mg= 1 tab, SL, q5min, PRN potassium chloride(potassium chloride 20 mEq oral tablet, extended release), 20 mEq= 1 tab, PO, Daily spironolactone(spironolactone 50 mg oral tablet), 50 mg= 1 tab, PO, Daily tamsulosin(tamsulosin 0.4 mg oral capsule), 0.4 mg= 1 cap, PO, Daily, 3 refills Allergies Dust rhinitis Pollen rhinitis Ragweed rhinitis Trees rhinitis Tylenol Social History Smoking Status Never smoked cigarettes Alcohol Use:Current Type:Wine Frequency:3-5 times per week Average drinks per episode in last year:2 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 Dementia: Mother. PCOS- polycystic ovary syndrome: Daughter. Health Status Family Member(s) Sister: History is unknown Family Member(s) Relationship: Father, Age: 74 Years, Cause: cerebral aneurysm Immunizations Vaccine Date Status Zoster Vaccine Unspecified 06/01/2022 Recorded Comments : 2023-04-27: Historical information-source unspecified Zoster Vaccine Unspecified 04/04/2022 Recorded Comments : 2023-04-27: Historical information-source unspecified tetanus/diphtheria/pertuss, acel (Tdap) 04/04/2022 Recorded Comments : 2022-09-06: Historical information-source unspecified SARS-CoV-2 (COVID-19) mRNA BNT-162b2 vax 08/17/2021 Recorded Comments : 2022: Historical information-source unspecified influenza virus vaccine, inactivated 07/2021 Recorded SARS-CoV-2 (COVID-19) mRNA BNT-162b2 vax 01/18/2021 Recorded Comments : [id number] SARS-CoV-2 (COVID-19) mRNA BNT-162b2 vax 12/28/2020 Recorded Comments : 2021-03-06: Historical information-source unspecified pneumococcal 13-valent vaccine 08/08/2019 Recorded influenza virus vaccine, inactivated 07/25/2019 Given Lab Results Lab Results - Last 24hrs Na: 140 mmol/L (02/26/25 10:27:00) K: 4.2 mmol/L (02/26/25 10:27:00) Cl-: 104 mmol/L (02/26/25 10:27:00) HCO3: 22 mmol/L (02/26/25 10:27:00) Anion Gap: 14 mmol/L (02/26/25 10:27:00) BUN: 21 mg/dL (02/26/25 10:27:00) Cret: 1.16 mg/dL (02/26/25 10:27:00) Estimated CrCl: 65.58 mL/min (02/26/25 10:27:00) eGFR CKD-EPI: 67 mL/min/1.73 m2 (02/26/25 10:27:00) Glu: 148 mg/dL High (02/26/25 10:27:00) Ca: 10 mg/dL (02/26/25 10:27:00) WBC: 8.18 K/uL (02/26/25 10:27:00) Hgb: 14.8 g/dL (02/26/25 10:27:00) Hct: 43.8 % (02/26/25 10:27:00) RBC: 4.78 M/uL (02/26/25 10:27:00) MCV: 91.6 fL (02/26/25 10:27:00) MCHC: 33.8 g/dL (02/26/25 10:27:00) MCH: 31 pg (02/26/25 10:27:00) RDW: 13.5 % (02/26/25 10:27:00) Plts: 237 K/uL (02/26/25 10:27:00) MPV: 10.7 fL (02/26/25 10:27:00) Type of Diff: AUTO (02/26/25 10:27:00) Immature Gran%: 0.4 % (02/26/25 10:27:00) Neut%: 73.3 % (02/26/25 10:27:00) Lymph%: 13.7 % (02/26/25 10:27:00) [place]%: 9.2 % (02/26/25 10:27:00) Baso%: 0.6 % (02/26/25 10:27:00) Eos%: 2.8 % (02/26/25 10:27:00) Immat Gran, Abs: 0.03 K/uL (02/26/25 10:27:00) Neut, Abs: 6 K/uL (02/26/25 10:27:00) Lymph, Abs: 1.12 K/uL (02/26/25 10:27:00) [place], Abs: 0.75 K/uL (02/26/25 10:27:00) Baso, Abs: 0.05 K/uL (02/26/25 10:27:00) Eos, Abs: 0.23 K/uL (02/26/25 10:27:00) ALT: 37 unit/L (02/26/25 10:27:00) T Bili: 1 mg/dL (02/26/25 10:27:00) Alk Phos: 90 unit/L (02/26/25 10:27:00) AST: 27 unit/L (02/26/25 10:27:00) Alb: 3.9 g/dL (02/26/25 10:27:00) Prot: 7.3 g/dL (02/26/25 10:27:00) Gluc Meter: 138 mg/dL High (02/26/25 10:26:00) Color (u): YELLOW (02/26/25 10:45:00) Appear (u): CLEAR (02/26/25 10:45:00) Glu (u): NEGATIVE mg/dL (02/26/25 10:45:00) Bili (u): NEGATIVE (02/26/25 10:45:00) Ketones: NEGATIVE mg/dL (02/26/25 10:45:00) S.015 (02/26/25 10:45:00) Hgb (u): NEGATIVE (02/26/25 10:45:00) pH (u): 5 unit (02/26/25 10:45:00) Prot (u): NEGATIVE mg/dL (02/26/25 10:45:00) Urobili: 0.1-1.0 EU/dL (02/26/25 10:45:00) Nitrite (u): NEGATIVE (02/26/25 10:45:00) Leuk Est: NEGATIVE (02/26/25 10:45:00) [1] CT Angio Abdomen and Pelvis; MD Armas Benjamin 01/28/2025 14:49 EDT Electronic Signature on File Electronically Reviewed/Signed by: Maryann Liu DO Author Signature Dt/Tm:02/27/2025 06:32 AM Resident Division of Internal Medicine Electronically Reviewed/Signed by: Cristopher Bobby MD Cosigner Signature Dt/Tm: 02/26/2025 05:36 PM [facility] [place] [facility] - [address], [address], [place] [address] [facility] Surgical operation note * MD Roslyn, Giovanny: PERFORM Event Display: .Operative Report Authored Date: [id number] OPERATIVE REPORT Name: DAVIDE NUNO Patient Number: [id number] : 1955 Date of Service: 02/28/2025 CO-SURGEON(s): Timo Anderson MD, Leonardo Wilkes MD, Giovanny Mcgowan MD. EXECUTIVE ASSISTANT(s): Jim Frias MD, Nathan Knott MD. PREOPERATIVE DIAGNOSIS: Severe aortic stenosis. POSTOPERATIVE DIAGNOSIS: Same. OPERATION PERFORMED: Transcatheter aortic valve replacement, transfemoral. ANESTHESIA: Conscious sedation. INDICATIONS: Severe symptomatic aortic stenosis. Findings: Successful deployment. Specimen: None. Estimated blood loss: Minimal. Complication: None. OPERATION: He was brought to the catheterization laboratory, placed in the supine position, and prepared in standard fashion. A team time-out was performed. Monitored anesthesia care was provided. Using ultrasonic guidance, the left femoral vein was entered with a 21 gauge needle, and a 5 Greek Microcatheterwas placed. After the introduction of a 0.035" wire, a 7 Greek sheath was placed in the left femoral vein. Using ultrasonic guidance, the left femoral artery was entered with a 21 gauge needle, and a 5 Greek Microcatheter was placed. After the introduction of a 0.035" wire, a 7 Greek sheath was placed in the left femoral artery. Using ultrasonic guidance, the right common femoral artery was entered with a 21 gauge needle, and a 5 Greek Microcatheter was placed. Two Perclose ProStyle deviceswere placed in a "preclose" fashion but not deployed. A 7 Greek sheath was placed in the right common femoral artery. Through the sheath in the left femoral vein, a balloon-tipped pacing catheter was advanced into theright ventricle. Adequate capture was confirmed. A 6 Greek pigtail was advanced through the sheathin the left femoral artery until it reached the right sinus of the aortic valve. Aortography was used to identify a coplanar view. Via the 7 Greek sheath in the right common femoral artery, a 0.035" Lunderquist wire was advanced to the thoracic aorta. A 14 Greek eSheath was inserted into the left INTERTYPE OPERATOR over the Lunderquist wire.Heparin was given as a 10,000 unit bolus. Additional dosing was guided by the ACT. Via the 14 Greek eSheath, a 6 Greek AL1 catheter was used successfully to steer a 0.035" 260 cm straight wire throu gh the aortic valve. The AL1 was advanced into the ventricle, after which the straight wire was replaced with a pigtail catheter, and the pigtail was used to place a Safari wire in the LV apex. A 26 mm Morrow Windy 3 Ultra Resilia valve was prepared on the back table (nominal). The valve was advanced through the eSheath until it reached thoracic aorta. In the thoracic aorta, the valve was mounted on its delivery balloon. The Windy 3 valve was then advanced across the [place] aortic valve, andthe pusher was withdrawn. During rapid ventricular pacing, the valve was deployed. After deflation of the deployment balloon, rapid pacing was stopped. Angiography showed moderate regurgitation. An additional 1.0 ml of diluted contrast was added to the delivery balloon (23.0 + 1.0 = 24.0 ml). The delivery system was advanced across the [place] aortic valve. During rapid ventricular pacing, the balloon was inflated. After deflation of the balloon, rapid pacing was stopped. Angiography showed minimal regurgitation. Protamine was given. The eSheath was removed, and the preplaced Perclose devices were tightened. The sheath was removed from the left femoral artery, and a Perclose ProStyle device was used for hemostasis. Hemostasis was secure. The pacing wire was then removed from the sheath in the left femoral vein. The sheath was removed from the left femoral vein, and hemostasis was obtained with a single Perclose ProStyle device. Hemostasis was secure. The patient was transported to the [facility] in stable condition. Katrin Negro and Roslyn were co-operators for the procedure. Electronic Signature on File Electronically Reviewed/Signed by: Giovanny Mcgowan MD Author Signature Dt/Tm:02/28/2025 04:56 PM Division of Cardiothoracic Surgery [place] .D/C Summary * MD Bobby Michael P: MODIFY MD Bobby Michael P: MODIFY Event Display: .D/C Summary Authored Date: [id number] DAVIDE NUNO :1955 Visit Date:02/26/2025 Discharge Summary [facility] For medical concerns, call: . Date of Admission: 02/26/2025 Date of Discharge: 03/01/2025 Physician: MD Bobby Michael P Service: Cardiology Discharge Disposition: Primary Care Provider/Phone: MD ARAMBULA JONATHAN D (BUSINESS) [phone] (FAX BUSINESS) . 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 S/p TAVR 02/28. A detailed, problem-based summary of pt's hospital course is as follows: #Syncope, most likely due to Severe Aortic Stenosis s/p TAVR 02/28. Low suspicion for neurogenic etiology. Ortho static vitals came back negative but may have been a component given poor PO intake in the 24 hours prior to admission and alleviated once he received fluids en route to the ED. TTE 04/08/22 showed EF 60%, grade I diastolic dysfunction, heavily calcified, tricuspid aortic valve.Moderate to severe aortic stenosis (LVOT/AV ratio is 0.23; FRANKLYN is 1.0 cm2; AV mean PG is 28 mmHg) - 26 mm Morrow Windy 3 Ultra Resilia Valve placed 02/28 - aspirin 81mg daily #BPH w/ urinary obstruction Pre-TAVR workup revealed urinary obstruction. PVR 1.9L noted at Urology outpatient clinic. AT clinic, recommended for Bocanegra vs CIC but pt opted for trial of flomax. However, after syncope, Bocanegra was placed in ED. Per discussion with urology, plan for cysto and TURP in the future - maintain Bocanegra, follow up outpatient with urology - continue Flomax 0.4mg daily #HFpEF #HTN Home regimen: Furosemide 40mg, Isosorbide mononitrate 60mg, Spironolactone 50mg, Irbesartan 300mg - continue home regimen on discharge Chronic Conditions #HLD: continue home Zetia 10mg, Atorvastatin 80mg #HAMMAD: continue home CPAP qhs #lung nodules - multiple noted on CT angio 01/28/25. Recommend FOLLOW UP CT in 6-12 mos #enlarged thyroid - noted on CT angio 01/28/25. Recommend outpatient FOLLOW UP thyroid US ATTENDING ADDENDUM: I saw and examined the patient on the day of discharge, reviewed pertinent labsand studies, and discussed the discharge plan with the documenting house staff and team. The discharge plan was presented to the patient and/or family members. I have reviewed the above dischargesummary and agree with the hospital course and discharge plan as outlined. Separately from any other documented time intervals by the house staff, I personally spent a total of 25 minutes in discharge related care, planning, and execution. Exam on Discharge Vitals & Measurements: T: 36.6 °C TMIN: 36.6 °C TMAX: 39.0 °C HR: 67 (Monitored) RR: 16 BP: 100/58 SpO2: 96% Oxygen Therapy: Room Air WT: 101 kg BMI: 37.76 kg/m2 General: Appears stated age. Laying in bed. Awake. Alert. NAD. HEENT: Normocephalic, atraumatic. Anicteric sclerae. Left eye closed Neck: Trachea midline. No JVD. No cervical lymphadenopathy. Cardiac: irregular rhythm, systolic murmur Lungs: Clear to auscultation bilaterally. No wheezes or crackles. Good respiratory effect. Abdomen: Soft, non-distended, non-tender with no rebound/rigidity/guarding. Bocanegra in palce with clear yellow urine Extremities: No cyanosis or clubbing. No edema. S/p R thumb amputation Neuro: Alert and oriented x3. Follows commands. Skin: Warm and well perfused. No rashes or lesions. Psych: Pleasant. Euthymic mood. Normal affect. Medications What How Much When Why Instructions Next Dose Unchanged aspirin (aspirin 81 mg oral delayed releasetablet) 1 tab(s) by mouth Once daily Unchanged atorvastatin (atorvastatin 80 mg oral tablet) 1 tab(s) by mouth At bedtime Unchanged ezetimibe (Zetia 10 mg oral tablet) 1 tab(s) by mouth Once daily Unchanged furosemide (furosemide 40 mg oral tablet) 1 tab(s) by mouth Once daily Unchanged irbesartan (irbesartan 300 mg oral tablet) 1 tab(s) by mouth Once daily Unchanged isosorbide mononitrate (isosorbide mononitrate 60 mg oral tablet, extended release) 1 tab(s) by mouth Once a day (in the morning) Unchanged multivitamin 1 tab(s) by mouth Once daily Unchanged nitroglycerin (nitroglycerin 0.4 mg sublingual tablet) 1 tab(s) sublingually Every 5 minutes as needed for as needed for chest pain Unchanged potassium chloride (potassium chloride 20 mEq oral tablet, extended release) 1 tab(s) by mouth Once daily Unchanged spironolactone (spironolactone 50 mg oral tablet) 1 tab(s) by mouth Once daily Unchanged tamsulosin (tamsulosin 0.4 mg oral capsule) 1 cap by mouth Once daily BPH with obstruction/lower urinary tract symptoms Allergies Dust rhinitis Pollen rhinitis Ragweed rhinitis Trees rhinitis Tylenol hives Follow-Up Tests and Studies After Discharge Echo TransTHORacic TTE Complete(Echo TransTHORacic TTE Complete w/ or w/o Contrast), *Est. 03/03/26+/- 28 day, Routine, s/p TAVR, LV, Performed per Imaging Dept.'s protocol, Please assess FRANKLYN, MG, PV,DI, PVL, Order for future visit, [facility], Please schedule same day of but prior to Tuesday valve clinic visit Echo TransTHORacic TTE Complete(Echo TransTHORacic TTE Complete w/ or w/o Contrast), *Est. 04/08/25+/- 7 day, Routine, s/p TAVR, LV, Performed per Imaging Dept.'s protocol, Please assess FRANKLYN, MG, PV, DI, PVL, Order for future visit, [facility], please wschedule same day as but prior [facility] valve clinic Instructions From Your Doctor Bocanegra Catheter After discussion with urology you are being discharged with a Bocanegra catheter until your follow up with urology. If urology does not call you to schedule follow up in 2 business days call the Queue-it phone number at the top of these instructions. Aortic Stenosis To fix your narrow heart valve you underwent a procedure called a TAVR procedure. You will followup with our structural heart team in month. Care after your heart valve procedure # If you have any questions please call [phone] Tuesday through Tuesday 8am – 4pm. For any questions after 4pm, weekends or holidays, please call [phone]. This number will connect you to the hospital molybdenum steamer operator and ask for the Catholic Priest pinion sorter. # You may shower and wash incisions with soap and water daily. No bath tubs or pools until incisions are completely healed (3-5 days). Do not apply any creams, lotions or powders to incision until completely healed. # Due to the replacement of your valve, you will be on aspirin 81mg daily for the remainder of yourlife. Please contact the above number if you notice any excessive bruising or bleeding upon discharge to home. # Take all medications as prescribed; if taking metformin, do not resume for 48 hours after your procedure day, please call above number if any questions. # Weigh yourself daily and record the number. Please bring weight record to follow up appointments, if directed. # Since you had a heart valve replaced, you will be required to take antibiotics prior to all procedure and dental appointments. Do NOT have any dental work for 3 months Activity after your heart procedure # Keep legs elevated while sitting. # No driving for 1 week after the date of your surgery. # Walk at least 4 times per day. You may use the stairs but limit the number of times during the first week while your strength and stamina returns. You may also place a chair at the top and bottom of the stairs to take a break if space allows for this. This will help lessen your shortness of breath and fatigue. # No pulling, pushing or lifting anything heavier than 10 pounds for 1 week after surgery. # Cardiac Rehab referral has been made on discharge. A Cardiac Rehab closest to you will contactyou in 3-4 weeks to begin outpatient therapy. We encourage you to participate in this program as they will help monitor your medications, dietary changes and vital signs. They will also help you progress your activity level so that you can get the most out of your procedure. You were offered a Hepatitis C screening test and you declined. Please follow up with your PCP. Follow-Up Appointments Scheduled Follow-Up Appointments Tuesday 10:00 AM EDT Type: [facility] Echo TransTHORacic - Adult Where: [facility] 1 MB RM [id number]|[facility] [place] - Main Building [address] [facility] [place] [place] [address] [phone] Status: Confirmed Tuesday 12:15 PM EDT Type: Cards Interventional Valve Clinic Return Where: [facility] [address]|[facility] [place] - [address], [address], [address] [place] [address] Status: Confirmed Harrison May. 4, 2026 10:00 AM EDT Type: [facility] Echo TransTHORacic - Adult Where: [facility] [address]|[facility] [place] - [address] [place] [address], [address], [address] [place] [address] [phone] Status: Confirmed Tuesday2025 12:15 PM EDT Type: Cards Interventional Valve Clinic Return Where: [facility] [address]|[facility] [place] - [place] [place] [address], [address], [address] [place] [address] [phone] Status: Confirmed You Need to Schedule the Following Appointments Follow Up with Henrique Arambula When:Within Call physician within next business day Where:[address] [facility] [address] [place] [address]- [phone] Business (1) Follow Up with Return to Emergency Department When:Within Call physician within next business day Additional Information: Thank you for coming to [facility]! Please schedule an appointment for follow-up with your Primary Care Provider this week to discuss your Emergency Department (ED) visit. If you do not have a primary doctor, you can call your insurance company to find one near you. If you do not have insurance, you can call the [facility] Careline for moreassistance. To contact the Careline, please call [phone] or [phone]. Drink plenty of fluids. Please continue to take all medications as prescribed by your primary doctor, unless otherwise instructed. Please keep all of your scheduled doctor appointments. Please return to the ED if: you develop chest pain, shortness of breath, inability to tolerate fluids due to vomiting, abdominal pain, localized weakness or numbness, any other new or worsening symptoms or symptoms that concern you. Thank you for seeking medical care here at the [facility] Emergency Department! Follow-up appointments: 1. Keep all your follow-up appointments as already scheduled. If you cannot make an appointment, notify your provider. 2. We requested you follow up with your primary care provider within 1 week of discharge. If you need help setting up your Patient Portal account, ask our registration team for assistance. You can also do the following at home: 1) Google "My Health Patient Portal [facility]" 2) Click on the "My Health Patient Portal" link 3) Click on "Patient Log In" 4) Click on "Enroll Now" near the bottom of the page 5) Fill out the relevant information. Note you will need your Medical Record Number (MRN) to sign up. This should be listed on your discharge paperwork The Following Services Have Been Arranged No Post-Acute Placement(s) Listed No Post-Acute Service(s) Listed Tests Pending Extra Blue Urine Culture To obtain results pending at hospital discharge, call and ask for the following Physician: MD Diamante, Cristopher Olguin Procedures Performed #26mm (+1) TAVR 02/28/2025 I personally spent _ minutes in discharge planning. Electronic Signature on File CC: Henrique Arambula MD [address] [address] Electronically Reviewed/Signed by: Bethel Shin DO Author Signature Dt/Tm:03/01/2025 05:46 PM Resident Division of Internal Medicine Electronically Reviewed/Signed by: Cristopher Bobby MD Cosigner Signature Dt/Tm: 03/01/2025 06:19 PM [facility] [place] [facility] - [address], [place] [address] [facility] Emergency department Summary note * DO Polanco Alexandra P: MODIFY DO Polanco Alexandra P: MODIFY, MODIFY, MODIFY, PERFORM DO Sampson Nathan: PERFORM Event Display: ED Summary Authored Date: [id number] Basic Information Time Seen: DO Polanco Alexandra P 02/26/2025 10:14 Chief Complaint at the clinic talking about putting bocanegra in and then had a syncopal episode. about 1.5 l in his bladder at this time History of Present Illness DAVIDE NUNO is a 69 Years old Male with a PMx of severe (peak velocity 3.3 m/s, mean gradient 28 mmHg, AVAi 0.5 cm2/m2), multivessel CAD, hypertension, hyperlipidemia, HAMMAD on CPAP, BPH who presents to the ED from the urology clinic status post syncopal episode. Patient was activated as a medical alert rapid response with IM, and Dr. Chacon, as well as , provide additionalhistory at bedside. Patient was discussing having a Bocanegra catheter placed with the urology team,while sitting at rest, and had a brief syncopal episode that lasted 2 to 3 seconds, no postictal phase, no tongue biting, or seizure like activity was observed. He has underlying urinary retention, and had been retaining 1.6 L of urine at the time, and was told he needs a Bocanegra catheter for his TAVR procedure in the near future. He currently has no chest pain, shortness of breath, abdominal pain, or other complaints at this time. He has had no recent exertional symptoms. Review of Systems A clinically focused review of systems is negative, unless otherwise specified in the HPI above. Physical Exam Vitals & Measurements T: 36.7 °C HR: 69 (Monitored) RR: 21 BP: 113/75 SpO2: 95% HT: 165 cm WT: 103.5 kg WT: 103.500 kg (Dosing) BMI: 38.02 GEN: Cooperative HEENT: NCAT, EOMI CV: RRR RESP: CTAB, unlabored respiratory effort GI: Soft, suprapubic tenderness palpation, no rebound or guarding MSK: No gross deformities appreciated, no peripheral edema SKIN: perfused appearing, no obvious cyanosis NEURO: Alert, awake, no gross focal deficits PSYCH: Appropriate mood and affect Medical Decision Making Patient is a 69-year-old male who presents to the ED status post syncopal episode, in the setting of either vasovagal syncope while discussing having a Bocanegra catheter placed, versus relation to his aortic stenosis. A aghgc-bi-zjco blood glucose, CBC, CMP, EKG, UA were ordered for evaluation of leukocytosis, anemia, MILY, electrolyte abnormalities, heart block or arrhythmia. A Bocanegra catheter was placed using lido-jet for pain control, after discussion with the patient regarding his urinary retention, relieving his bladder distention and an output of approximately 1.5L of non bloody urine. EKG independently interpreted by myself demonstrates sinus rhythm, normal rate, normal intervals, normal axis, no significant ST or T-wave abnormalities, some PACs present. His laboratory workup is also unremarkable, no obstructive MILY or UTI. Assessment/Plan Aortic stenosis Syncope Urinary retention Patient signed out to the oncoming ED team, Dr. Rose, pending cardiology discussion regarding his , and if no concerns this was related to his syncopal event, will d/c home with his Bocanegra catheter Medication Reconciliation Unchanged aspirin (aspirin 81 mg oral delayed release tablet)1 tab(s) by mouth once daily. Refills: 10. atorvastatin (atorvastatin 80 mg oral tablet)1 tab(s) by mouth at bedtime. Refills: 3. ezetimibe (Zetia 10 mg oral tablet)1 tab(s) by mouth once daily. Refills: 5. furosemide (furosemide 40 mg oral tablet)1 tab(s) by mouth once daily. irbesartan (irbesartan 300 mg oral tablet)1 tab(s) by mouth once daily. Refills: 0. isosorbide mononitrate (isosorbide mononitrate 60 mg oral tablet, extended release)1 tab(s) by mouth once a day (in the morning). multivitamin1 tab(s) by mouth once daily. nitroglycerin (nitroglycerin 0.4 mg sublingual tablet)1 tab(s) sublingually every 5 minutes as needed as needed for chest pain. potassium chloride (potassium chloride 20 mEq oral tablet, extended release)1 tab(s) by mouth once daily. spironolactone (spironolactone 50 mg oral tablet)1 tab(s) by mouth once daily. tamsulosin (tamsulosin 0.4 mg oral capsule)1 cap by mouth once daily. Refills: 3. Attestation I personally performed a history and physical exam and discussed the management plan with the resident. I independently confirmed evans portions of the history and physical exam, and agree with theresident note which I have reviewed and edited to reflect my findings. 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 Positive colorectal cancer screening using DNA-based stool test Seasonal allergies Resolved Multiple pulmonary nodules Procedure/Surgical History •Doppler ultrasonography of carotid artery| Service Date: 10/22/2022•DEXA Bone Densitometry| Service Date: 03/19/2021•Stool DNA-based colorectal cancer screening| Service Date: 12/06/2019•Chest x-ray| Service Date: 06/28/2019•Echocardiogram| Service Date: 06/06/2019•Carotid artery ultras ound| Service Date: 06/06/2019•Chest x-ray| Service Date: 02/22/2017•CT of chest| Service Date:04/30/2013 Medication Administration Administered: Medications: lidocaine topical 2% gel Uro-Jet, 1 appl, topical (02/26/2025 10:30 EDT) Allergies Dust rhinitis Pollen rhinitis Ragweed rhinitis Trees rhinitis Tylenol Family History COVID-19: Sister. Dementia: Mother. PCOS- polycystic ovary syndrome: Daughter. Health Status Family Member(s) Sister: History is unknown Family Member(s) Relationship: Father, Age: 74 Years, Cause: cerebral aneurysm Lab Results Chemistry LATEST RESULTS HISTORICAL RESULTS Na 02/26/25 10:27 140 mmol/L 01/29/25 139 mmol/L K 02/26/25 10:27 4.2 mmol/L 01/29/25 4.6 mmol/L Cl- 02/26/25 10:27 104 mmol/L 01/29/25 106 mmol/L HCO3 02/26/25 10:27 22 mmol/L 01/29/25 27 mmol/L Anion Gap 02/26/25 10:27 14 mmol/L 01/29/25 6 mmol/L BUN 02/26/25 10:27 21 mg/dL 01/29/25 19 mg/dL Cret 02/26/25 10:27 1.16 mg/dL 01/29/25 0.99 mg/dL Estimated CrCl 02/26/25 10:27 65.58 01/29/25 84.11 eGFR CKD-EPI 02/26/25 10:27 67 mL/min/1.73 m2 01/29/25 82 mL/min/1.73 m2 Glu 02/26/25 10:27 148 mg/dL High 01/29/25 141 mg/dL High Ca 02/26/25 10:27 10.0 mg/dL 01/29/25 10.2 mg/dL CBC LATEST RESULTS HISTORICAL RESULTS WBC 02/26/25 10:27 8.18 K/uL 01/29/25 6.00 K/uL Hgb 02/26/25 10:27 14.8 g/dL 01/29/25 15.5 g/dL Hct 02/26/25 10:27 43.8 % 01/29/25 46.6 % RBC 02/26/25 10:27 4.78 M/uL 01/29/25 5.07 M/uL MCV 02/26/25 10:27 91.6 fL 01/29/25 91.9 fL MCHC 02/26/25 10:27 33.8 g/dL 01/29/25 33.3 g/dL MCH 02/26/25 10:27 31.0 pg 01/29/25 30.6 pg RDW 02/26/25 10:27 13.5 % 01/29/25 13.9 % Plts 02/26/25 10:27 237 K/uL 01/29/25 251 K/uL MPV 02/26/25 10:27 10.7 fL 01/29/25 10.7 fL Type of Diff: 02/26/25 10:27 AUTO 01/29/25 AUTO Immature Gran% 02/26/25 10:27 0.4 % 01/29/25 1.0 % Neut% 02/26/25 10: 73.3 % 01/29/25 61.5 % Lymph% 02/26/25 10: 13.7 % 01/29/25 21.3 % [place]% 02/26/25 10: 9.2 % 01/29/25 11.0 % Baso% 02/26/25 10:27 0.6 % 01/29/25 1.2 % Eos% 02/26/25 10:27 2.8 % 01/29/25 4.0 % Immat Gran, Abs 02/26/25 10:27 0.03 K/uL 01/29/25 0.06 K/uL Neut, Abs 02/26/25 10:27 6.00 K/uL 01/29/25 3.69 K/uL Lymph, Abs 02/26/25 10:27 1.12 K/uL 01/29/25 1.28 K/uL [place], Abs 02/26/25 10:27 0.75 K/uL 01/29/25 0.66 K/uL Baso, Abs 02/26/25 10:27 0.05 K/uL 01/29/25 0.07 K/uL Eos, Abs 02/26/25 10:27 0.23 K/uL 01/29/25 0.24 K/uL Liver/GI LATEST RESULTS ALT 02/26/25 10:27 37 unit/L T Bili 02/26/25 10:27 1.0 mg/dL Alk Phos 02/26/25 10:27 90 unit/L AST 02/26/25 10:27 27 unit/L Nutrition LATEST RESULTS Alb 02/26/25 10:27 3.9 g/dL Prot 02/26/25 10:27 7.3 g/dL Endocrine LATEST RESULTS Gluc Meter 02/26/25 10:26 138 mg/dL High Urine LATEST RESULTS HISTORICAL RESULTS Color (u) 02/26/25 10:45 YELLOW 01/29/25 YELLOW Appear (u) 02/26/25 10:45 CLEAR 01/29/25 CLEAR Glu (u) 02/26/25 10:45 NEGATIVE mg/dL 01/29/25 NEGATIVE mg/dL Bili (u) 02/26/25 10:45 NEGATIVE 01/29/25 NEGATIVE Ketones 02/26/25 10:45 NEGATIVE mg/dL 01/29/25 NEGATIVE mg/dL SG 02/26/25 10:45 1.015 01/29/25 1.025 Hgb (u) 02/26/25 10:45 NEGATIVE 01/29/25 NEGATIVE pH (u) 02/26/25 10:45 5.0 unit 01/29/25 5.5 unit Prot (u) 02/26/25 10:45 NEGATIVE mg/dL 01/29/25 NEGATIVE mg/dL Urobili 02/26/25 10:45 0.1-1.0 EU/dL 01/29/25 0.2 EU/dL Nitrite (u) 02/26/25 10:45 NEGATIVE 01/29/25 NEGATIVE Leuk Est 02/26/25 10:45 NEGATIVE 01/29/25 NEGATIVE Electronic Signature on File Electronically Reviewed/Signed by: Dakota Sampson DO Author Signature Dt/Tm:02/26/2025 02:27 PM Resident Department of Emergency Medicine Electronically Reviewed/Signed by: Dakota Sampson DO Cosigner Signature Dt/Tm: 02/26/2025 03:56 PM Resident Department of Emergency Medicine Electronically Reviewed/Signed by: Brandy Polanco DO Cosigner Signature Dt/Tm: 02/27/2025 07:26 PM Department of Emergency Medicine NM Discharge instructions * DO Shin Angel T: PERFORM Event Display: Patient Discharge Instructions Authored Date: [id number] DAVIDE NUNO :1955 Visit Date:02/26/2025 Patient Discharge Instructions [facility] For medical concerns, call: . Date of Admission: 02/26/2025 Date of Discharge: 03/01/2025 Physician: MD Diamante, Cristopher Olguin Service: Cardiology Discharge Disposition: Home . Advance Directive: None Reason for Hospitalization Syncope Your Diagnoses Syncope Aortic stenosis Bocanegra catheter status Coronary artery disease HTN (hypertension) Atrial flutter Fever BPH with obstruction/lower urinary tract symptoms Urinary retention My [employer] Patient Portal: [employer] makes it easy for you to manage your health information online. ideaTree - innovate | mentor | invest [employer] is a free service that provides you instant, secure access to your medical information anytime, anywhere. Sign in or set up your account today at [email or web address] Thank you for allowing us to assist you with your healthcare needs. If you need additional community resources, [place] 211 can help at https://www.pa211.org. 211 can assist you in connecting with social programs based on your unique needs and locations. 211 is an anonymous search that can help you locate resources for: Food, Housing, Transportation, Goods, Education and Healthcare. Medications What How Much When Why Instructions Next Dose Unchanged aspirin (aspirin 81 mg oral delayed releasetablet) 1 tab(s) by mouth Once daily Unchanged atorvastatin (atorvastatin 80 mg oral tablet) 1 tab(s) by mouth At bedtime Unchanged ezetimibe (Zetia 10 mg oral tablet) 1 tab(s) by mouth Once daily Unchanged furosemide (furosemide 40 mg oral tablet) 1 tab(s) by mouth Once daily Unchanged irbesartan (irbesartan 300 mg oral tablet) 1 tab(s) by mouth Once daily Unchanged isosorbide mononitrate (isosorbide mononitrate 60 mg oral tablet, extended release) 1 tab(s) by mouth Once a day (in the morning) Unchanged multivitamin 1 tab(s) by mouth Once daily Unchanged nitroglycerin (nitroglycerin 0.4 mg sublingual tablet) 1 tab(s) sublingually Every 5 minutes as needed for as needed for chest pain Unchanged potassium chloride (potassium chloride 20 mEq oral tablet, extended release) 1 tab(s) by mouth Once daily Unchanged spironolactone (spironolactone 50 mg oral tablet) 1 tab(s) by mouth Once daily Unchanged tamsulosin (tamsulosin 0.4 mg oral capsule) 1 cap by mouth Once daily BPH with obstruction/lower urinary tract symptoms Allergies Dust rhinitis Pollen rhinitis Ragweed rhinitis Trees rhinitis Tylenol hives What to do next Instructions From Your Doctor Bocanegra Catheter After discussion with urology you are being discharged with a Bocanegra catheter until your follow up with urology. If urology does not call you to schedule follow up in 2 business days call the Queue-it phone number at the top of these instructions. Aortic Stenosis To fix your narrow heart valve you underwent a procedure called a TAVR procedure. You will followup with our structural heart team in month. Care after your heart valve procedure # If you have any questions please call [phone] Tuesday through Tuesday 8am – 4pm. For any questions after 4pm, weekends or holidays, please call [phone]. This number will connect you to the hospital molybdenum steamer operator and ask for the [employer] pinion sorter. # You may shower and wash incisions with soap and water daily. No bath tubs or pools until incisions are completely healed (3-5 days). Do not apply any creams, lotions or powders to incision until completely healed. # Due to the replacement of your valve, you will be on aspirin 81mg daily for the remainder of yourlife. Please contact the above number if you notice any excessive bruising or bleeding upon discharge to home. # Weigh yourself daily and record the number. Please bring weight record to follow up appointments, if directed. # Since you had a heart valve replaced, you will be required to take antibiotics prior to all procedure and dental appointments. Do NOT have any dental work for 3 months Activity after your heart procedure # Keep legs elevated while sitting. # No driving for 1 week after the date of your surgery. # Walk at least 4 times per day. You may use the stairs but limit the number of times during the first week while your strength and stamina returns. You may also place a chair at the top and bottom of the stairs to take a break if space allows for this. This will help lessen your shortness of breath and fatigue. # No pulling, pushing or lifting anything heavier than 10 pounds for 1 week after surgery. # Cardiac Rehab referral has been made on discharge. A Cardiac Rehab closest to you will contactyou in 3-4 weeks to begin outpatient therapy. We encourage you to participate in this program as they will help monitor your medications, dietary changes and vital signs. They will also help you progress your activity level so that you can get the most out of your procedure. If you notice the following symptoms Please call your primary care provider for symptoms including, but not limited to: fevers (temperatures >100.4 degrees F or 38.1 degrees C), chills, intractable nausea or vomiting, diarrhea, rash,shortness of breath, bleeding, pain, or if you experience any worsening of the symptoms that brought you to the hospital. In particular, please be cautious for chest pain, fevers, shortness of breath, dizziness/lightheadedness For EMERGENCY and VERY SERIOUS health-related issues, such as chest pain, shortness of breath, or sudden onset of the symptoms that brought you to the hospital, you may need to call 911 or go directly to the Emergency Room. Contact the [facility] Careline at . If unable to contact your physician and you feel it is an emergency, go to the nearest Emergency Room or call 911 Diet Instructions HEART HEALTHY DIET A heart-healthy diet as recommended by the [place] [employer] has lots of vegetables, fruits, nuts, beans, and whole grains, and is low in salt. Limit foods that are high in saturated fat, such as meats, cheeses, and fried foods. Also limit saturated fats, trans fats, cholesterol, sodium, and added sugar. Taste food before you salt it. Add only a little salt when you think you need it. Incorporate healthy fats such as those from fish, nuts, and olive oil. Activity Instructions You may resume your previous home activities, but go slowly and pace yourself as tolerated. Always take fall precautions, and ask for assistance as you regain your strength, coordination, and endurance. Follow-Up Appointments Scheduled Follow-Up Appointments Date/Time: Provider/Resource: Mar 10:00 am C Stress DSE Location/Instructions: [facility], [address], [place], [place] [address]. Plastics Process Hand parking is available at the Main Entrance. At the main entrance proceed straight down the long hallway to the [facility]. Once at the [facility] turn right towards the North Entrance. Check in at [facility] on your left in Room [id number]. If you have difficulty walking, please stop at the main entrance desk and request they call the transport golf cart to [facility] to the [facility] Registration area. option 2. Please arrive 15 minutes prior to your scheduled appointment time for Check In Process. Date/Time: Provider/Resource: Mar 12:15 pm Valve Clinic Location/Instructions: [facility], [address], Entr[address], [address], [place] [address] . Please arrive 15 minutes earlier than your appointment time for the check in process. You Need to Schedule the Following Appointments Follow Up with Henrique Arambula When:Within Call physician within next business day Where:[address] [address]- [phone] Business (1) Tests Pending Urine Culture Blood Culture If any of your testing comes back abnormal after you are discharged, someone will call you. Procedures Performed #26mm (+1) TAVR 02/28/2025 Special Instructions Common Emergency Awareness Tips Call 911 immediately if: experiencing any of the warning signs and symptoms of stroke: B.E. F.A.S.T. Balance: is there trouble with walking or coordination Eyes: is there double vision or visual loss Face: Smile, do both sides of face move equally Arm: Raise arms, do both arms move equally Speech: Is speech slurred or inappropriate Time: Time is critical, call 911 immediately Heart Attack Signs Chest discomfort: Most heart attacks involve discomfort in the center of the chest and lasts more than a few minutes, or goes away and comes back. It can feel like uncomfortable pressure, squeezing, fullness or pain. Discomfort in upper body: Symptoms can include pain or discomfort in one or both arms, back, neck, jaw or stomach. Shortness of breath: With or without discomfort. Other signs: Breaking out in a cold sweat, nausea, or lightheaded. Remember, MINUTES DO MATTER. If you experience any of these heart attack warning signs, call to get immediate medical attention! Education Materials Transcatheter Aortic Valve Replacement Transcatheter aortic valve replacement (TAVR) is a procedure to place an artificial aortic valve inthe heart. This procedure is also called transcatheter aortic valve implantation (SURJIT). The aorticvalve controls blood flow between the heart and the main blood vessel that supplies blood to the body (aorta). TAVR may be needed if you have symptoms caused by a stiff or tight aortic valve (aortic stenosis) or if the aortic valve is leaking (aortic regurgitation). During TAVR, a flexible tube (catheter) is placed through an incision in your groin, chest, or neckand is guided to your aortic valve. Then, the artificial valve is moved through the catheter and into the aortic valve. The artificial valve is then expanded and placed within your old valve. The oldvalve is not removed. The new valve takes over the function of the old valve, and it improves bloodflow through your heart. Tell a health care provider about: • Any allergies you have. • All medicines you are taking, including blood thinners, vitamins, herbs, eye drops, creams, and mphv-nux-iezkkmj medicines. • Any problems you or family members have had with anesthetic medicines. • Any bleeding problems you have. • Any surgeries you have had. • Any medical conditions you have. • Whether you are or may be . What are the risks? Generally, this is a safe procedure. However, problems may occur, including: • Infection. • Bleeding. • Allergic reactions to medicines. • Damage to nearby structures or organs, such as blood vessels or the heart. • Heart problems, such as abnormal heart rhythms (arrhythmia) or heart attack. • Need for a pacemaker. • Failure of the artificial valve. Other risks include: • Blood clots. • Kidney failure. • Stroke. What happens before the procedure? When to stop eating and drinking Follow instructions from your health care provider about what you may eat and drink. These may include: • 8 hours before your procedure ◦ Stop eating most foods. Do not eat meat, fried foods, or fatty foods. ◦ Eat only light foods, such as toast or crackers. ◦ All liquids are okay except energy drinks and alcohol. • 6 hours before your procedure ◦ Stop eating. ◦ Drink only clear liquids, such as water, clear fruit juice, black coffee, plain tea, and sports drinks. ◦ Do not drink energy drinks or alcohol. • 2 hours before your procedure ◦ Stop drinking all liquids. ◦ You may be allowed to take medicines with small sips of water. If you do not follow your health care provider's instructions, your procedure may be delayed or canceled. Medicines • Ask your health care provider about: ◦ Changing or stopping your regular medicines. These include any diabetes medicines or blood thinnersyou take. ◦ Taking medicines such as aspirin and ibuprofen. These medicines can thin your blood. Do not take these medicines unless your health care provider tells you to take them. ◦ Taking zjjn-uoy-swzopka medicines, vitamins, herbs, and supplements. • You may need to take blood thinners before surgery. If you are given blood thinners, take them exactly as you are told. Tests • You will have testing, including: ◦ An echocardiogram, or echo. This checks how well your heart and heart valves are working. ◦ CT scan to check your aortic valve and determine if your valve can be replaced with a TAVR valve. ◦ A stress test to check your aortic valve. ◦ A coronary angiogram. During this procedure, a catheter is inserted into a blood vessel and guided into your heart to check pressures, check your arteries, and take images of the heart. • You may also have: ◦ Tests of lung function. ◦ A chest X-ray. ◦ Urine test. • You will have blood samples taken to monitor your hemoglobin, platelets, kidney function, and saltsand minerals in your body (electrolytes). Surgery safety Ask your health care provider: • How your surgery site will be marked. • What steps will be taken to help prevent infection. These steps may include: ◦ Removing hair at the surgery site. ◦ Washing skin with a germ-killing soap. ◦ Taking antibiotic medicine. General instructions • Do not use any products that contain nicotine or tobacco for at least 4 weeks before the procedure.These products include cigarettes, chewing tobacco, and vaping devices, such as e-cigarettes. If you need help quitting, ask your health care provider. • If you will be going home right after the procedure, plan to have a responsible adult: ◦ Take you home from the hospital or clinic. You will not be allowed to drive. ◦ Care for you for the time you are told. • You will be asked to obtain "valve surgery clearance" from your dentist. This is to make sure that you do not have a collection of germs (abscess) in your mouth that can cause an infection of the newaortic prosthesis. What happens during the procedure? • IVs will be inserted into veins in your arms. • You may be given: ◦ A sedative. This helps you relax. ◦ Anesthesia. This will: ▪ Numb the area where the catheter will be inserted. ▪ Make you fall asleep for surgery. • Small incisions or a puncture will be made in one or more of these places: ◦ Your groin. This is the most common place. ◦ Your neck. ◦ Your upper chest, near your collarbone. ◦ The left side of your chest. • Catheters will be threaded into your incisions and into blood vessels that lead to your heart. • Ongoing X-ray images (fluoroscopy) will be used to guide the catheters to the right places in your heart. • A wire will be placed through the catheter inside your aortic valve. A balloon at the end of this catheter may be inflated to open your aortic valve. • Another wire will be placed through the catheter inside your aortic valve. This wire will be used to help position and inflate your artificial valve. • Tests will be done to make sure your new valve and your heart are working properly. • Your incisions will be closed with stitches (sutures), skin glue, or adhesive strips. • Bandages (dressings) will be placed over your incisions. The procedure may vary among health care providers and hospitals. What happens after the procedure? • Your blood pressure, heart rate and rhythm, breathing rate, and blood oxygen level will be monitored until you leave the hospital or clinic. • You may continue to receive fluids and medicines through an IV. • You will be given pain medicine as needed. • You may need to lie still in bed for several hours. When you are allowed to get up, you will be encouraged to move around. • You may have to wear compression stockings. These stockings help to prevent blood clots and reduce swelling in your legs. • You will be shown how to do breathing exercises to prevent lung infection. • Do not drive or operate machinery until your health care provider says that it is safe. Summary • Transcatheter aortic valve replacement (TAVR) is a procedure to place an artificial aortic valve inthe heart. • You may need TAVR if you have a stiff or tight aortic valve (aortic stenosis) or if it is leaking (aortic regurgitation). • After the procedure, you may need to lie still in bed for several hours. When you are allowed to get up, you will be encouraged to move around. This information is not intended to replace advice given to you by your health care provider. Make sure you discuss any questions you have with your health care provider. Document Revised: 12/05/2022 Document Reviewed: 12/05/2022 [employer] Patient Education © 2023 [employer] General Anesthesia, Adult, Care After The following information offers guidance on how to care for yourself after your procedure. Your health care provider may also give you more specific instructions. If you have problems or questions, contact your health care provider. What can I expect after the procedure? After the procedure, it is common for people to: • Have pain or discomfort at the IV site. • Have nausea or vomiting. • Have a sore throat or hoarseness. • Have trouble concentrating. • Feel cold or chills. • Feel weak, sleepy, or tired (fatigue). • Have soreness and body aches. These can affect parts of the body that were not involved in surgery. Follow these instructions at home: For the time period you were told by your health care provider: • Rest. • Do not participate in activities where you could fall or become injured. • Do not drive or use machinery. • Do not drink alcohol. • Do not take sleeping pills or medicines that cause drowsiness. • Do not make important decisions or sign legal documents. • Do not take care of children on your own. General instructions • Drink enough fluid to keep your urine pale yellow. • If you have sleep apnea, surgery and certain medicines can increase your risk for breathing problems. Follow instructions from your health care provider about wearing your sleep device: ◦ Anytime you are sleeping, including during daytime naps. ◦ While taking prescription pain medicines, sleeping medicines, or medicines that make you drowsy. • Return to your normal activities as told by your health care provider. Ask your health care provider what activities are safe for you. • Take qify-cbn-jtvjjkz and prescription medicines only as told by your health care provider. • Do not use any products that contain nicotine or tobacco. These products include cigarettes, chewing tobacco, and vaping devices, such as e-cigarettes. These can delay incision healing after surgery.If you need help quitting, ask your health care provider. Contact a health care provider if: • You have nausea or vomiting that does not get better with medicine. • You vomit every time you eat or drink. • You have pain that does not get better with medicine. • You cannot urinate or have bloody urine. • You develop a skin rash. • You have a fever. Get help right away if: • You have trouble breathing. • You have chest pain. • You vomit blood. These symptoms may be an emergency. Get help right away. Call 911. • Do not wait to see if the symptoms will go away. • Do not drive yourself to the hospital. Summary • After the procedure, it is common to have a sore throat, hoarseness, nausea, vomiting, or to feel weak, sleepy, or fatigue. • For the time period you were told by your health care provider, do not drive or use machinery. • Get help right away if you have difficulty breathing, have chest pain, or vomit blood. These symptoms may be an emergency. This information is not intended to replace advice given to you by your health care provider. Make sure you discuss any questions you have with your health care provider. Document Revised: 01/14/2023 Document Reviewed: 01/14/2023 [employer] Patient Education © 2023 [employer]. General Anesthesia, Adult General anesthesia is the use of medicine to make you fall asleep (unconscious) for a medical procedure. General anesthesia must be used for certain procedures. It is often recommended for surgery orprocedures that: • Last a long time. • Require you to be still or in an unusual position. • Are major and can cause blood loss. • Affect your breathing. The medicines used for general anesthesia are called general anesthetics. During general anesthesia, these medicines are given along with medicines that: • Prevent pain. • Control your blood pressure. • Relax your muscles. • Prevent nausea and vomiting after the procedure. Tell a health care provider about: • Any allergies you have. • All medicines you are taking, including vitamins, herbs, eye drops, creams, and mfyk-yll-bbgtyft medicines. • Your history of any: ◦ Medical conditions you have, including: ▪ High blood pressure. ▪ Bleeding problems. ▪ Diabetes. ▪ Heart or lung conditions, such as: • Heart failure. • Sleep apnea. • Asthma. • Chronic obstructive pulmonary disease (COPD). ▪ Current or recent illnesses, such as: • Upper respiratory, chest, or ear infections. • Cough or fever. ◦ Tobacco or drug use, including marijuana or alcohol use. ◦ Depression or anxiety. ◦ Surgeries and types of anesthetics you have had. ◦ Problems you or family members have had with anesthetic medicines. • Whether you are or may be . • Whether you have any chipped or loose teeth, dentures, caps, bridgework, or issues with your mouth,swallowing, or choking. What are the risks? Your health care provider will talk with you about risks. These may include: • Allergic reaction to the medicines. • Lung and heart problems. • Inhaling food or liquid from the stomach into the lungs (aspiration). • Nerve injury. • Injury to the lips, mouth, teeth, or gums. • Stroke. • Waking up during your procedure and being unable to move. This is rare. These problems are more likely to develop if you are having a major surgery or if you have an advanced or serious medical condition. You can prevent some of these complications by answering all of your health care provider's questions thoroughly and by following all instructions before your procedure. General anesthesia can cause side effects, including: • Nausea or vomiting. • A sore throat or hoarseness from the breathing tube. • Wheezing or coughing. • Shaking chills or feeling cold. • Body aches. • Sleepiness. • Confusion, agitation (delirium), or anxiety. What happens before the procedure? When to stop eating and drinking Follow instructions from your health care provider about what you may eat and drink before your procedure. If you do not follow your health care provider's instructions, your procedure may be delayed or canceled. Medicines Ask your health care provider about: • Changing or stopping your regular medicines. These include any diabetes medicines or blood thinnersyou take. • Taking medicines such as aspirin and ibuprofen. These medicines can thin your blood. Do not take them unless your health care provider tells you to. • Taking jroe-tfh-qolizdu medicines, vitamins, herbs, and supplements. General instructions • Do not use any products that contain nicotine or tobacco for at least 4 weeks before the procedure.These products include cigarettes, chewing tobacco, and vaping devices, such as e-cigarettes. If you need help quitting, ask your health care provider. • If you brush your teeth on the morning of the procedure, make sure to spit out all of the water andtoothpaste. • If told by your health care provider, bring your sleep apnea device with you to surgery (if applicable). • If you will be going home right after the procedure, plan to have a responsible adult: ◦ Take you home from the hospital or clinic. You will not be allowed to drive. ◦ Care for you for the time you are told. What happens during the procedure? • An IV will be inserted into one of your veins. • You will be given one or more of the following through a face mask or IV: ◦ A sedative. This helps you relax. ◦ Anesthesia. This will: ▪ Numb certain areas of your body. ▪ Make you fall asleep for surgery. • After you are unconscious, a breathing tube may be inserted down your throat to help you breathe. This will be removed before you wake up. • An anesthesia provider, such as an anesthesiologist, will stay with you throughout your procedure. The anesthesia provider will: ◦ Keep you comfortable and safe by continuing to give you medicines and adjusting the amount of medicine that you get. ◦ Monitor your blood pressure, heart rate, and oxygen levels to make sure that the anesthetics do notcause any problems. The procedure may vary among health care providers and hospitals. What happens after the procedure? • Your blood pressure, temperature, heart rate, breathing rate, and blood oxygen level will be monitored until you leave the hospital or clinic. • You will wake up in a recovery area. You may wake up slowly. • You may be given medicine to help you with pain, nausea, or any other side effects from the anesthesia. Summary • General anesthesia is the use of medicine to make you fall asleep (unconscious) for a medical procedure. • Follow your health care provider's instructions about when to stop eating, drinking, or taking certain medicines before your procedure. • Plan to have a responsible adult take you home from the hospital or clinic. This information is not intended to replace advice given to you by your health care provider. Make sure you discuss any questions you have with your health care provider. Document Revised: 01/13/2023 Document Reviewed: 01/13/2023 Else[employer] Patient Education © 2023 [employer] Fall Prevention in the Home, Adult Falls can cause injuries and can happen to people of all ages. There are many things you can do to make your home safer and to help prevent falls. What actions can I take to prevent falls? General information • Use good lighting in all rooms. Make sure to: ◦ Replace any light bulbs that burn out. ◦ Turn on the lights in dark areas and use night-lights. • Keep items that you use often in nwkk-nt-fyiis places. Lower the shelves around your home if needed. • Move furniture so that there are clear paths around it. • Do not use throw rugs or other things on the floor that can make you trip. • If any of your floors are uneven, fix them. • Add color or contrast paint or tape to clearly timo and help you see: ◦ Grab bars or handrails. ◦ First and last steps of staircases. ◦ Where the edge of each step is. • If you use a ladder or stepladder: ◦ Make sure that it is fully opened. Do not climb a closed ladder. ◦ Make sure the sides of the ladder are locked in place. ◦ Have someone hold the ladder while you use it. • Know where your pets are as you move through your home. What can I do in the bathroom? • Keep the floor dry. Clean up any water on the floor right away. • Remove soap buildup in the bathtub or shower. Buildup makes bathtubs and showers slippery. • Use non-skid mats or decals on the floor of the bathtub or shower. • Attach bath mats securely with double-sided, non-slip rug tape. • If you need to sit down in the shower, use a non-slip stool. • Install grab bars by the toilet and in the bathtub and shower. Do not use towel bars as grab bars. What can I do in the bedroom? • Make sure that you have a light by your bed that is easy to reach. • Do not use any sheets or blankets on your bed that hang to the floor. • Have a firm chair or bench with side arms that you can use for support when you get dressed. What can I do in the kitchen? • Clean up any spills right away. • If you need to reach something above you, use a step stool with a grab bar. • Keep electrical cords out of the way. • Do not use floor ghanaian or wax that makes floors slippery. What can I do with my stairs? • Do not leave anything on the stairs. • Make sure that you have a light switch at the top and the bottom of the stairs. • Make sure that there are handrails on both sides of the stairs. Fix handrails that are broken or loose. • Install non-slip stair treads on all your stairs if they do not have carpet. • Avoid having throw rugs at the top or bottom of the stairs. • Choose a carpet that does not hide the edge of the steps on the stairs. Make sure that the carpet is firmly attached to the stairs. Fix carpet that is loose or worn. What can I do on the outside of my home? • Use bright outdoor lighting. • Fix the edges of walkways and driveways and fix any cracks. Clear paths of anything that can make you trip, such as tools or rocks. • Add color or contrast paint or tape to clearly timo and help you see anything that might make you trip as you walk through a door, such as a raised step or threshold. • Trim any bushes or trees on paths to your home. • Check to see if handrails are loose or broken and that both sides of all steps have handrails. Install guardrails along the edges of any raised decks and porches. • Have leaves, snow, or ice cleared regularly. Use sand, salt, or ice melter on paths if you live where there is ice and snow during the winter. • Clean up any spills in your garage right away. This includes grease or oil spills. What other actions can I take? • Review your medicines with your doctor. Some medicines can cause dizziness or changes in blood pressure, which increase your risk of falling. • Wear shoes that: ◦ Have a low heel. Do not wear high heels. ◦ Have rubber bottoms and are closed at the toe. ◦ Feel good on your feet and fit well. • Use tools that help you move around if needed. These include: ◦ Canes. ◦ Walkers. ◦ Scooters. ◦ Crutches. • Ask your doctor what else you can do to help prevent falls. This may include seeing a physical therapist to learn to do exercises to move better and get stronger. Where to find more information • Centers for Disease Control and Prevention, STEAD[place]: cdc.gov • National [place] on Aging: kajal.nih.gov • National [place] on [employer]ging: kajal.nih.gov Contact a doctor if: • You are afraid of falling at home. • You feel weak, drowsy, or dizzy at home. • You fall at home. Get help right away if you: • Lose consciousness or have trouble moving after a fall. • Have a fall that causes a head injury. These symptoms may be an emergency. Get help right away. Call 911. • Do not wait to see if the symptoms will go away. • Do not drive yourself to the hospital. This information is not intended to replace advice given to you by your health care provider. Make sure you discuss any questions you have with your health care provider. Document Revised: 06/20/2023 Document Reviewed: 06/20/2023 [employer] Patient Education © 2023 [employer] Fall Prevention in Hospitals, Adult Staying in the hospital puts you at risk of falling. Falls can cause serious injuries, but they canbe prevented. Make sure you know what puts you at risk for falling and what you and your health care team can do to prevent falls. If you or a loved one falls in the hospital, tell the hospital staff about it. What can increase my risk of falls? Factors that increase your risk of falling in the hospital include: • Being in an unfamiliar environment, especially when using the bathroom at night. • Having surgery or being on bed rest. • Taking many medicines or certain types of medicines, such as sleeping pills. Some medicines can cause confusion, trouble with balance, dizziness, or low blood pressure. • Having tubes in place, such as IVs or catheters. Other risk factors for falls while in the hospital include: • Having trouble with hearing or vision. • Having depression. • Needing to use the toilet frequently. • Having fallen during the past 3 months. What actions can I take to prevent falls? If you or a loved one has to stay in the hospital: • Ask about which fall prevention strategies will be in place. • Do not get up by yourself if you have been asked to call for help when getting up. Asking for help to get up is for your safety, and the staff is there to help you. • Wear non-skid shoes or non-skid slippers. • Get up slowly, and sit at the side of the bed for a few minutes before standing up. • Keep items you need close to you, such as the call button or a phone, so that you do not need to reach for them. • Wear eyeglasses or hearing aids as told by your health care provider. • Have someone stay in the hospital with you or your loved one. • Ask if sleeping pills or other medicines that can cause confusion or dizziness are necessary if they are prescribed to you or a loved one. What does the hospital staff do to help prevent falls? Hospitals have systems in place to prevent falls and accidents, which may include: • Discussing your fall risk and making a personalized fall prevention plan. • Checking in regularly to see if you need help. Some hospitals use video monitoring that allows a staff member to come to you if you need help. • Placing an armband on your wrist or a sign near your room to alert other staff of your needs. • Using an alarm on your hospital bed. This is an alarm that goes off if you get out of bed and forget to call for help. • Keeping the bed in a low and locked position. • Keeping the area around the bed and bathroom well-lit and not cluttered. • Having a staff person stay with you (one-on-one observation), even when you are using the bathroom.This is for your safety. • Using safety equipment, such as: ◦ A belt around your waist. ◦ Walkers, crutches, and other devices for support. ◦ Safety beds, such as low beds, or cushions on the floor next to the bed. What other actions can I take to prevent falls? • Check in regularly with your provider or pharmacist to review all medicines that you take. • Make sure that you have a regular exercise program to stay physically fit. This will help you maintain your balance. • Talk with a physical therapist if recommended by your provider. A physical therapist can help you learn to do exercises to improve movement and strength. • If you are over 65 years old: ◦ Ask your provider if you need a calcium or vitamin D supplement. ◦ Have your eyes and hearing checked every year. ◦ Have your feet checked every year. This information is not intended to replace advice given to you by your health care provider. Make sure you discuss any questions you have with your health care provider. Document Revised: 06/20/2023 Document Reviewed: 06/20/2023 [employer] Patient Education © 2023 [employer] Transcatheter Aortic Valve Replacement, Care After The following information offers guidance on how to care for yourself after your procedure. Your health care provider may also give you more specific instructions. If you have problems or questions, contact your health care provider. What can I expect after the procedure? After the procedure, it is common to have: • Pain around your incision areas. • Bruising and a small lump near your catheter insertion areas. • Tiredness (fatigue). Follow these instructions at home: Medicines • Take hauu-dsp-chxnrga and prescription medicines only as told by your health care provider. • If you were prescribed antibiotics, take them as told by your health care provider. Do not stop using the antibiotic even if you start to feel better. • Ask your health care provider if the medicine prescribed to you can cause constipation. You may need to take these actions to prevent or treat constipation: ◦ Take kqdf-fwr-jvphlhg or prescription medicines. ◦ Eat foods that are high in fiber, such as beans, whole grains, and fresh fruits and vegetables. ◦ Limit foods that are high in fat and processed sugars, such as fried or sweet foods. Bleeding precautions If you are taking blood thinners: • Talk with your health care provider before you take any medicines that contain aspirin or NSAIDs, such as ibuprofen. These medicines increase your risk for dangerous bleeding. • Take your medicine exactly as told, at the same time every day. • Avoid activities that could cause injury or bruising. Follow instructions about how to prevent falls. • Wear a medical alert bracelet or carry a card that lists what medicines you take. Eating and drinking • Follow instructions from your health care provider about eating or drinking restrictions. • Eat a heart-healthy diet. This includes lean proteins, whole grains, and plenty of fresh fruits andvegetables. ◦ Avoid foods that are high in salt (sodium), saturated fat, or sugar. Check ingredients and nutrition facts on packaged foods and beverages. ◦ Avoid canned or highly processed foods. ◦ Avoid fried foods. • Ask your health care provider if your fluid intake is restricted. If not, drink enough fluid to keep your urine pale yellow. Alcohol use If you drink alcohol: • Limit how much you have to: ◦ 0–1 drink a day for women who are not . ◦ 0–2 drinks a day for men. • Know how much alcohol is in your drink. In the [place] one drink equals one 12 oz bottle of beer (355mL), one 5 oz glass of wine (148 mL), or one 1½ oz glass of hard liquor (44 mL). Incision care • Follow instructions from your health care provider about how to take care of your incisions. Make sure you: ◦ Wash your hands with soap and water for at least 20 seconds before and after you change your bandage (dressing). If soap and water are not available, use hand armature winder repair helper. ◦ Change your dressing as told by your health care provider. ◦ Leave stitches (sutures), glue, or adhesive strips in place. These skin closures may need to stay in place for 2 weeks or longer. If adhesive strip edges start to loosen and curl up, you may trim theloose edges. Do not remove adhesive strips completely unless your health care provider tells you todo that. • Check your incisions or puncture areas every day for signs of infection. Check for: ◦ More redness, swelling, or pain. ◦ Fluid or blood. ◦ Warmth. ◦ Pus or a bad smell. Activity • Rest as told by your health care provider. Take naps as needed throughout the day. • Do not sit for a long time without moving. Get up to take short walks every 1–2 hours. This will improve blood flow and breathing. Ask for help if you feel weak or unsteady. • Avoid climbing stairs for about one week. • You may have to avoid lifting. Ask your health care provider how much you can safely lift. • Ask your health care provider when it is safe for you to drive or use machinery. Do not drive untilyour health care provider approves. • Exercise regularly, as told by your health care provider. • Ask your health care provider if you will be doing a formal cardiac exercise program (cardiac rehabilitation). • Return to your normal activities as told by your health care provider. Ask your health care provider what activities are safe for you. Lifestyle • Do not use any products that contain nicotine or tobacco. These products include cigarettes, chewing tobacco, and vaping devices, such as e-cigarettes. If you need help quitting, ask your health careprovider. • Resume sexual activity as told by your health care provider. If you have problems getting or keeping an erection (erectile dysfunction), do not use medicines to treat it unless your health care provider approves. • Work with your health care provider to manage your blood pressure and any other heart conditions that you have. • Maintain a healthy weight. General instructions • Do not take baths, swim, or use a hot tub until your health care provider approves. You may take showers. • Do not strain to have a bowel movement. • Wear compression stockings as told by your health care provider. These stockings help to prevent blood clots and reduce swelling in your legs. • Avoid airplane travel for as long as you are told. • When you travel, bring along a list of your medicines and a record of your medical history. Carry your medicines with you. Future health care visits • Keep all follow-up visits. Tell all your health care providers, including your dentists: ◦ That you have an artificial aortic valve. ◦ That you have or have had heart disease. • To prevent infection, you may need to take antibiotics for dental procedures. Contact a health care provider if: • You have sudden, unexplained weight changes. • You have any signs of infection at your incision or puncture area. • You have a fever. • You have fast or irregular heartbeats (palpitations). • You are light-headed or you faint. Get help right away if: • An incision area swells very quickly. • An incision is bleeding, and the bleeding does not stop after pressure is applied. • The area near or just beyond an incision tingles or becomes pale, cool, or numb. • You develop chest pain. • You develop shortness of breath or have trouble breathing. These symptoms may be an emergency. Get help right away. Call 911. • Do not wait to see if the symptoms will go away. • Do not drive yourself to the hospital. Summary • After your procedure, it is common to have bruising and a small lump around your catheter insertionsite. • Check your incisions or puncture areas every day for signs of infection. • You may have to avoid lifting. Ask your health care provider how much you can safely lift. • Do not drive until your health care provider approves. • Tell all your health care providers that you have an artificial aortic valve. This information is not intended to replace advice given to you by your health care provider. Make sure you discuss any questions you have with your health care provider. Document Revised: 12/05/2022 Document Reviewed: 12/05/2022 Elsevier Patient Education © 2023 [employer] Indwelling Urinary Catheter Skin Care, Adult An indwelling urinary catheter is a soft tube that is placed into the bladder to help drain pee (urine) out of the body. The catheter is put in through the urethra and is held inside your bladder by a balloon filled with water. The urethra is the part of the body that drains pee from the bladder. Pee drains from the catheter into a drainage bag outside of the body. Taking good care of your catheter and the skin around your catheter will keep it working well and help prevent problems like urinary tract infections (UTIs). What are the risks? • Germs (bacteria) may get into your bladder and cause a UTI. • Redness, irritation, or pain in the skin around your catheter. • Breakdown or infection of the skin around your catheter. How to care for the skin around the catheter Supplies needed: • A clean washcloth. • Water and mild soap. • A clean towel. Caring for the skin around the catheter • Shower every day. Do not take baths. • Do not use cream, ointment, or lotion on the area where the catheter enters your body, unless your health care provider tells you to do that. • Do not use powders, sprays, or lotions on your genital area. • Check the skin around the catheter every day for signs of infection. Check for: ◦ Redness, swelling, or pain. ◦ Fluid or blood. ◦ Warmth. ◦ Pus or a bad smell. Every day, use a clean washcloth and soapy water to clean the skin around your catheter. 1. Wash your hands with soap and water for at least 20 seconds. If soap and water are not available, use hand armature winder repair helper. 2. Wet a washcloth in warm water and mild soap. Use a different part of the washcloth each time you wipe. 3. Clean the skin around your urethra. • If you are female: ◦ Use one hand to gently spread the folds of skin around your urethra (labia). ◦ With the washcloth in your other hand, wipe the inner side of your labia on each side. Do this in jzceej-dh-gnux direction. • If you are male: ◦ Use one hand to pull back any skin that covers the end of your penis (foreskin). ◦ With the washcloth in your other hand, wipe your penis in small circles. Start wiping at the tip ofyour penis, then move outward from the catheter. ◦ Move the foreskin back in place, if needed. 4. Next, use one hand to hold the catheter close to where it enters your body. Keep holding the catheter during cleaning so it does not get pulled out. 5. Use your other hand to clean the catheter with the washcloth. • Wipe downward on the catheter, toward the bag. • Do not wipe upward toward your body, because that may push germs into your urethra and cause infection. 6. Use a clean towel to pat-dry the catheter and the skin around it. Make sure to rinse or wipe off all soap. 7. Wash your hands again with soap and water for at least 20 seconds. General instructions • Always wash your hands for at least 20 seconds before and after you care for your skin around the catheter. Use a mild, fragrance-free soap. • Never pull on your catheter or try to remove it. Pulling can damage your internal tissues. • Always make sure there are no leaks around the catheter. • Always make sure there are no twists, bends, or kinks in the catheter or the tubing. • Drink enough fluid to keep your pee pale yellow. • Do not take baths, swim, or use a hot tub. • If you are female, wipe from front to back after having a bowel movement. Contact a health care provider if: • Your catheter starts to leak. • You have signs of infection at the skin around the catheter. • You have signs of a UTI, such as: ◦ A fever or chills. ◦ Pain in your abdomen, legs, lower back, or bladder. Get help right away if: • Your catheter gets pulled out. This information is not intended to replace advice given to you by your health care provider. Make sure you discuss any questions you have with your health care provider. Document Revised: 11/08/2023 Document Reviewed: 08/05/2023 [employer] Patient Education © 2023 [employer] Indwelling Urinary Catheter Bag Care, Adult An indwelling urinary catheter is a soft tube that is placed into the bladder to help drain pee (urine) out of the body. The catheter is put in through the urethra and is held inside your bladder by a balloon filled with water. The urethra is the part of the body that drains pee from the bladder. Pee drains from the catheter into a drainage bag outside of the body. Taking good care of your catheter, catheter tubing, and the drainage bag will keep your catheter working well. It will also help prevent problems like urinary tract infections (UTIs). What are the risks? • Germs (bacteria) may get into your bladder and cause a UTI. • The flow of pee can become blocked. This can happen if: ◦ The catheter is not connected to the drainage bag correctly. ◦ You have sediment or a blood clot in your bladder or catheter. How to wear the catheter and drainage bag Supplies needed: • Adhesive tape or a leg strap. • If you use tape you will need: ◦ Alcohol wipes or soap and water. ◦ A clean towel. • Overnight drainage bag. • Smaller drainage bag (leg bag). Wearing your catheter and bag Use tape or a leg strap to attach the catheter and tubing to your leg. • Make sure the catheter is not pulled tight. • If a leg strap gets wet, replace it with a dry one. • If you use tape: 1. Use an alcohol wipe or soap and water to wash off any stickiness on your skin where you had tape before. 2. Use a clean towel to pat-dry the area. 3. Apply the new tape. You should have received a large overnight drainage bag and a smaller leg bag that fits under clothing. • You may wear the overnight bag at any time, but you should not wear the leg bag at night. • Make sure the overnight drainage bag is always lower than the level of your bladder. But do not letthe bag touch the floor. • Before you go to sleep, hang the bag on the side of a wastebasket that is covered by a clean plastic bag. • Secure the leg bag according to the general duty nurse's instructions. This may be above or below the knee, depending on the length of the tubing. Make sure that: ◦ The leg bag is below your bladder. ◦ The tubing does not have loops or too much tension. How to empty the drainage bag Supplies needed: • Rubbing alcohol or alcohol wipes. • Gauze pad or cotton ball. • Toilet or a clean container. Emptying the bag Empty your drainage bag when it is ⅓–½ full, or at least 2–3 times a day. Clean the bag according to the general duty nurse's instructions or as told by your health care provider. 1. Wash your hands with soap and water for at least 20 seconds. If soap and water are not available, use hand armature winder repair helper. 2. Hold the drainage bag over the toilet or the clean container used with the drainage bag. Make sure the drainage bag is lower than your hips and bladder. This stops pee from going back into the tubingand into your bladder. 3. Open the pour spout at the bottom of the bag. 4. Empty the pee into the toilet or container. Do not let the pour spout touch any surface. This prevents germs from getting in the bag and causing infection. 5. Use the gauze pad or cotton ball soaked with rubbing alcohol or an alcohol wipe to clean the pour spout. 6. Close the pour spout. 7. Wash your hands again with soap and water for at least 20 seconds. How to change the drainage bag Supplies needed: • Alcohol wipes. • A new drainage bag. • Adhesive tape or a leg strap. Changing the bag Change your drainage bag twice a day. Also replace your drainage bag with a new bag if it leaks, starts to smell bad, or looks dirty. Be sure to empty your drainage bag before you change bags. 1. Wash your hands with soap and water for at least 20 seconds. If soap and water are not available, use hand armature winder repair helper. 2. Detach the tubing or drainage bag from your skin. 3. Pinch the catheter with your fingers so that pee does not spill out. 4. Disconnect the catheter from the drainage bag tubing at the connection valve. Do not let the end ofthe catheter touch any surface. 5. Use an alcohol wipe to clean the end of the catheter and the end of the drainage bag tubing being connected. 6. Connect the catheter to the drainage bag tubing. 7. Attach the bag and tubing to your leg with tape or a leg strap. Avoid attaching the bag too tightly. 8. Wash your hands again with soap and water for at least 20 seconds. General instructions • Always wash your hands for at least 20 seconds before and after you handle your catheter or drainage bag. Use a mild, fragrance-free soap. • Never pull on your catheter or try to remove it. Pulling can damage your internal tissues. • Always make sure there are no leaks around the catheter or from the drainage bag and tubing. • Always make sure there are no twists, bends, or kinks in the catheter or the tubing. • Drink enough fluid to keep your pee pale yellow. • Do not take baths, swim, or use a hot tub. • If you are female, wipe from front to back after having a bowel movement. Contact a health care provider if: • Your catheter starts to leak. • Your bladder feels full. • You have tiredness (lethargy), excessive sleepiness, or confusion. • You have signs of a UTI, such as: ◦ A fever or chills. ◦ Pain in your abdomen, legs, lower back, or bladder. Get help right away if: • Your pee is pink or red or you see blood in the catheter. • Your pee is not draining into the bag. • Your catheter gets pulled out. This information is not intended to replace advice given to you by your health care provider. Make sure you discuss any questions you have with your health care provider. Document Revised: 11/08/2023 Document Reviewed: 08/05/2023 [employer] Patient Education © 2023 [employer]. Patient Care team information Care Team Personnel Name: MD Ralf, Henrique Veronica Position: Physician - Family Med Member Role: Primary Care Provider [address]: [address] [place] [address] Telecom: [phone] Name: Jorje Spann Position: Admissions I Name: FlakoFAISAL Kiera Position: Pt Animal Cruelty Investigation Supervisor - Nurse Mangle Tender Cloth Member Role: Patient Communications Agent Name: MD Diamante, Cristopher Olguin Position: Physician - Cardiology Member Role: Consulting (5 day after disch/visit) Address: [address] [place] [address] Telecom: [phone] Name: R.E.S. Not Needed Position: Resident Name: Corin An Position: Admissions I Member Role: Clerical Care Team Related Persons Name: MEE NUNO Name: MEE NUNO JR Name: MEE NUNO Insurance Providers Guarantor name: DAVIDE Gabriel CYNDIE Health Plan Information #: 1 Payer: [employer] Member Number: [id number] Policy Number: NA Group Number: [id number] Payer Identifier: [id number] Health Plan Information #: 2 Payer: [employer] Member Number: [id number] Policy Number: NA Group Number: NA Payer Identifier: [id number]
--- OUTSIDE RECORDS SUMMARY | 2025-03-06 01:11 | External Medical Summary | Continuity of Care Document ---
Author Name Unknown Organization [facility] [address] [place] [address] OSITO ZAMAN [phone] Care Team Providers Care Hydrologic Engineer Name Role Phone Henrique Arambula Primary Care Physician [phone] Encounter [facility] SAMAN [id number] Date(s): 02/26/25 - 02/26/25 [facility] [address] [facility] Surgery Specialties [address], [address], [address] [place] [address] [phone] Encounter Diagnosis BPH with urinary obstruction(Discharge Diagnosis) - 02/26/25 Discharge Disposition: Home or Self Care Attending Physician: AGUSTIN Fuchs Andrea E Referring Physician: MD Arambula Jonathan D Encounter Type: [facility] Allergies, Adverse Reactions, Alerts Substance Criticality Severity Reaction Reaction Severity Status Tylenol hives Active Dust rhinitis Active Pollen rhinitis Active Ragweed rhinitis Active Trees rhinitis Active Assessment and Plan Extracted from: Title:Surgery Office Visit Note Author:AGUSTIN Fuchs Andrea E Date:02/26/25 1. BPH with urinary obstruc tion Assessment: Davide is a 69-year-old gentleman with significant past medical history of pulmonary nodules, severe aortic stenosis, CAD, hypertension, diastolic CHF, impaired fasting glucose, LVH, HAMMAD, hypertension, hyperlipidemia here today for consultation for bladder distention and prostamegaly. Patient currently is under the care of of [facility] cardiology for severe aortic stenosis. During this workup he had a CT angio CAP which showed markedly enlarged urinary bladder and prostamegaly. Clinical correlation for urinary retention or urinary bladder outlet obstruction is recommended. His PCP ordered further evaluation with PSA on 01/30/2025 which came back normal at 2.91. Recent lab work from 01/29/2025 showed a normal creatinine of 0.99 and GFR 82. He has been referred to [facility] urology for further evaluation. Recommended Hays catheter insertion versus CIC however at last visit 02/22/25 however, patient prefered to first have a trial of Flomax to see if this will resolve his urinary retention. I did review with patient the degree of urinary retention that he has will unlikely be resolved with Flomax. In the office today patient had a syncopal episode. His blood pressure at that time was running 70s/50s, pulse ox 100%, heart rate via the pulse ox was reading in the 20s. Glucose was 152. The rapid response team then arrived and assumed care of this patient. An IV was placed and patient was started on IV fluids once stable he was then transferred to the ED via wheelchair with the rapid response team. Plan: Transfer to ED for evaluation of syncopal episode, hypotension, bradycardia (possible orthostatic hypotension due to Flomax) Also recommend he have a Hays catheter placed and be monitored for post obstructive diuresis Patient in agreement with above plan *This note was created with the aid of dictation software, as much I try to proofread, some errors may still occur. Immunizations Given and Recorded Vaccine Date Status [...] Comment: 2022: Historical information-source unspecified 5Result Comment: [id number] 6Result Comment: 2021-03-06: Historical information-source unspecified Medications aspirin 81 mg oral delayed release tablet Start: 05/15/19 7:59:00 PM EDT, 1 tab, PO, Daily, Disp# 100 tab, Refills: 10, given to patient Start Date: 05/15/19 Status: Ordered Quantity: 100.0 Unit: tab Repeat number: 11 atorvastatin 80 mg oral tablet Start: 07/06/24 3:30:00 PM EDT, 1 tab, PO, qhs, Disp# 90 tab, Refills: 3, Pharmacy: [facility] Start Date: 07/06/24 Status: Ordered Quantity: 90.0 Unit: tab Repeat number: 1 furosemide 40 mg oral tablet Start: 08/24/21 1:05:00 PM EDT, 1 tab, PO, Daily Start Date: 08/24/21 Status: Ordered Repeat number: 1 irbesartan 300 mg oral tablet Start: 02/19/25 11:54:00 AM EDT, 1 tab, PO, Daily, Disp# 90 tab, Refills: 0, Pharmacy: [facility] Start Date: 02/19/25 Status: Ordered Quantity: 90.0 [...] Daily, Disp# 90 cap, Refills: 3, [id number] Start Date: 02/22/25 Status: Ordered Quantity: 90.0 Unit: cap Repeat number: 4 Indications: Benign prostatic hyperplasia with lower urinary tract symptoms; Zetia 10 mg oral tablet Start: 02/13/25 2:06:00 PM EDT, 1 tab, PO, Daily, Disp# 30 tab, Refills: 5, Note to Pharmacy: resending per request, Pharmacy: [facility] #[id number] Start Date: 02/13/25 Status: Ordered Quantity: 30.0 Unit: tab Repeat number: 6 Mental Status 02/26/25 Barriers to Learning one year None evide nt Mandatory Health Literacy Documentation Yes Health Literacy Communication Barriers N ever Primary Language Croatian Problem List Condition Confirmation Course Effective Dates Status Health Status Informant Aortic stenosis 1, 2 Confirmed 06/06/19 Active Central retinal vein occlusion of left [...] Diagnosis Diagnosis Type Effective Dates Health Status Clinical Service Informant BPH with urinary obstruction Discharge Diagnosis 02/26/25 Procedures Procedure Date Related Diagnosis Body Site [...] dayan enlargement. Results Laboratory List Name Date Glucose Meter (GLUCOSE METER) 02/26/25 Most recent to oldest [Reference Range]: 1 Gluc (comment) Testing performed at : 1 *Unknown* (02/26/25 9:39 AM) Gluc Meter [74-109 mg/dL] 152 mg/dL *HI* (02/26/25 9:39 AM) 1Result Comment: [facility] [address] [facility] [address] [place] [address] Vital Signs Most recent to oldest [Reference Range]: 1 Temperature [36.5-37.9 DegC] 36.5 DegC (02/26/25 9:13 AM) Heart Rate 62 bpm (02/26/25 9:13 AM) Blood Pressure 118/69mmHg (02/26/25 9:13 AM) Cuff Pulse Pressure 49 mmHg (02/26/25 9:13 AM) BP Location # 1 Left Arm (02/26/25 9:13 AM) Social History Social History Type Response Smoking Status Never smoked cigaret karon Sex Male Sex Representation Male (finding) Urology Outpatient Note * AGUSTIN Fuchs, Tyree Tinoco: PERFORM Event Display: Urology Outpt Note Authored Date: [id number] Primary Care Provider MD Arambula Jonathan D Referring Provider MD Arambula Jonathan D Chief Complaint follow up History of Present Illness Davide is a 69-year-old gentleman with significant past medical history of pulmonary nodules, severe aortic stenosis, CAD, hypertension, diastolic CHF, impaired fasting glucose, LVH, HAMMAD, hypertension, hyperlipidemia here today for consultation for bladder distention and prostamegaly. Patient currently is under the care of of [facility] cardiology for severe aortic stenosis. During this workup he had a CT angio CAP which showed markedly enlarged urinary bladder and prostamegaly. Clinical correlation for urinary retention or urinary bladder outlet obstruction is recommended. His PCP ordered further evaluation with PSA on 01/30/2025 which came back normal at 2.91. Recent lab work from 01/29/2025 showed a normal creatinine of 0.99 and GFR 82. He has been referred to [facility] urology for further evaluation. At patient's last visit 02/22/25 he denied any bothersome BPH with LUTS symptoms. He felt like he had a good urine stream and is emptying his bladder well. Denied any daytime urgency or frequency,nocturia x 2. His postvoid residual at that visit was >1902ml--- of note, patient does not have urge to urinate. He was recommended to either have a Hays catheter placed or learn how to perform CIC until his prostate could be further evaluated with cystoscopy and have a discussion about possible bladder outlet obstructive surgery. However, patient declined and wished to trial Flomax. I reviewed with patient that likely this would not relieve relieve the degree of urinary retention he was in however he still wished to try this first. He was started on Flomax 1 capsule daily 02/22/25. Patient reports that he was tolerating this well and did not have any negative side effects from the medication. While in the middle of our visit patient then had a syncopal episode while sitting on the examtable. His and I slowly lowered him onto the exam table. 911 was called and a rapid response was also called. His blood pressure at that time was running 70s/50s, pulse ox 100%, heart rate via the pulse ox was reading in the 20s. Glucose was 152. The rapid response team then arrived and assumed care of this patient. An IV was placed and patient was started on IV fluids once stable he was then transferred to the ED via wheelchair with the rapid response team. Review of Systems 14 point review of systems completed and negative except as documented in HPI Physical Exam Vitals & Measurements T: 36.5 °C HR: 62 (Monitored) BP: 118/69 General: Awake, alert NAD HEENT: Oral mucosa pink and moist Pulmonary: Respirations symmetric and non labored Abdomen: Non distended Psych: Normal mood and affect Skin: Warm and dry PVR in the office today was >1617ml Assessment/Plan 1. BPH with urinary obstruction Assessment: Davide is a 69-year-old gentleman with significant past medical history of pulmonary nodules, severe aortic stenosis, CAD, hypertension, diastolic CHF, impaired fasting glucose, LVH, HAMMAD, hypertension, hyperlipidemia here today for consultation for bladder distention and prostamegaly. Patient currently is under the care of of [facility] cardiology for severe aortic stenosis. During this workup he had a CT angio CAP which showed markedly enlarged urinary bladder and prostamegaly. Clinical correlation for urinary retention or urinary bladder outlet obstruction is recommended. His PCP ordered further evaluation with PSA on 01/30/2025 which came back normal at 2.91. Recent lab work from 01/29/2025 showed a normal creatinine of 0.99 and GFR 82. He has been referred to [facility] urology for further evaluation. Recommended Hays catheter insertion versus CIC however at last visit 02/22/25 however, patient prefered to first have a trial of Flomax to see if this will resolve his urinary retention. I did review with patient the degree of urinary retention that he has will unlikely be resolved with Flomax. In the office today patient had a syncopal episode. His blood pressure at that time was ifikmul17e/50s, pulse ox 100%, heart rate via the pulse ox was reading in the 20s. Glucose was 152. The rapid response team then arrived and assumed care of this patient. An IV was placed and patient was started on IV fluids once stable he was then transferred to the ED via wheelchair with the rapid response team. Plan: Transfer to ED for evaluation of syncopal episode, hypotension, bradycardia (possible orthostatic hypotension due to Flomax) Also recommend he have a Hays catheter placed and be monitored for post obstructive diuresis Patient in agreement with above plan *This note was created with the aid of dictation software, as much I try to proofread, some errors may still occur. 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 Exercise Times per week:Daily Exercise type:Swimming Home/Environment [...] mRNA BNT-162b2 vax 01/18/2021 Recorded Comments : [id number] SARS-CoV-2 (COVID-19) mRNA BNT-162b2 vax 12/28/2020 Recorded Comments : 2021-03-06: Historical information-source unspecified pneumococcal 13-valent vaccine 08/08/2019 Recorded influenza virus vaccine, inactivated 07/25/2019 Given Recommendations Health Maintenance Pending (in the next year) OverDue Colorectal Cancer Screening due 12/19/22 and every 3 year Medicare Annual Wellness Visit due 03/26/23 and every 1 year Adult Influenza Vaccine due 04/30/24 and every 1 year Due Adult Social Determinants of Health Screening due 02/26/25 Unknown Frequency Pneumococcal Vaccine Older Adults due 02/26/25 One-time only Seasonal COVID 19 Vaccine due 02/26/25 Unknown Frequency Shingles Vaccine due 02/26/25 One-time only Satisfied (in the past 1 year) Satisfied Body Mass Index on 02/26/25. Satisfied by ABHI Oneal, Jamilah Lipid Screening on 01/29/25. Satisfied by Contributor_system, Employee Benefit Plans Electronic Signature on File Electronically Reviewed/Signed by: AGUSTIN Cope Author Signature Dt/Tm:02/26/2025 10:36 AM Department of Urology [facility] Patient Care team information Care Team Personnel Name: MD Arambula Jonathan D Position: Physician - Family Med Member Role: Primary Care Provider Address: [address] [place] [address] Telecom: [phone] Care Team Related Persons Name: MEE AGEE Name: MEE AGEE JR Name: MEE AGEE Insurance Providers Guarantor name: DAVIDE AGEE [facility] Information #: 1 Payer: [employer] Member Number: [id number] Policy Number: NA Group Number: [id number] Payer Identifier: [id number] Health Plan Information #: 2 Payer: [employer] Member Number: [id number] Policy Number: NA Group Number: NA Payer Identifier: [id number]"
[2025-03-06 03:05] VITALS: O2SAT 95
--- NOTE | 2025-03-06 07:20 | Hospitalist Progress Note ---
Date of Service March 06, 2025 Assessment & Plan (1) Near syncope: (2) Junctional rhythm: (3) Severe aortic stenosis: (4) CAD, multiple vessel: Plan #Near syncope: - asymptomatic - most likely due to vasovagal response of micturition reflex and dehydration 2/2 diuretics - given fluids, hold Lasix for now - orthostatic vitals were negative after fluid resuscitation last night - repeat EKG today showed normal sinus rhythm - consider event recorder outpatient #Severe arctic stenosis: - status post TAVR - echo showed that TAVR is in good position and working well #MILY: - probably from volume depletion as above noted - given a liter of IV fluids - orthostatics #Afib: Dispo: med/tele Diet: regular DVT prophylaxis: ambulation Admission and Anticipated Discharge Date Admission Date: March 05, 2025 Samantha Nuno is a 69 year old male with a past medical history of severe aortic stensis s/p TAVR on 02/28, urinary retention, and obstructive sleep apnea who presented to the ED on 03/05 via ambulance after two back to back episodes of near syncope at home. Of note, he had an episode of syncope in the urology office in [place] on 02/26 while sitting on the exam table. His BP was in the 70s/50s and his pulse was in the 20s on the pulse ox. He was transferred to the ED. EKG was normal. This morning, he said he is feeling well and is ready to go home. No recurrence of symptoms. He reports that he has been healing well from his TAVR procedure and has been feeling well. He just started tamsulosin on 02/22. No palpitations, weakness, chest pain, dizziness or lightheadedness. Results & Data Results & Data Vital Signs (Past 12 Hours) Vital Signs Temp Pulse Pulse Pulse Resp BP BP 03/06/25 02:28 36.7 C 78 16 03/05/25 23:35 76 03/05/25 21:13 75 03/05/25 20:33 37.1 C 82 21 163/85 H 03/05/25 19:52 70 20 143/90 H BP Pulse Ox O2 Del Method 03/06/25 02:28 144/81 H 95 CPAP 03/05/25 23:35 03/05/25 21:13 03/05/25 20:33 96 Room Air 03/05/25 19:52 93 Room Air
[2025-03-06 07:55] VITALS: RESP 18; TEMP 97.9
[2025-03-06] MEDS: ATORVASTATIN 40 MG TAB PO SCH (08:52)
[2025-03-06] MEDS: LOSARTAN POTASSIUM 50 MG TAB PO SCH (08:53)
[2025-03-06] MEDS: MULTIVITAMIN TAB PO SCH (08:53)
[2025-03-06] MEDS: ISOSORBIDE MONO EXTENDED REL 60 MG TABCR PO SCH (08:54)
[2025-03-06] MEDS: TAMSULOSIN HCL 0.4 MG CAP PO SCH (08:54)
[2025-03-06] MEDS: EZETIMIBE 10 MG TAB PO SCH (08:54)
[2025-03-06] MEDS: ASPIRIN 81 MG ECTAB PO SCH (08:54)
[2025-03-06] MEDS: SPIRONOLACTONE 25 MG TAB PO SCH (08:55)
[2025-03-06] MEDS: POTASSIUM CHLORIDE CRTAB 20 MEQ TABCR PO SCH (08:55)
[2025-03-06 09:35] LABS: BUN Creatinine Ratio 23.9 (10-20); Calcium 10.3 mg/dl (8.6-10.3)
--- NOTE | 2025-03-06 11:43 | Discharge Summary ---
Date of Service March 06, 2025 Admission HPI Per Admitting Provider patient is a very pleasant 69-year-old male who presents after having a syncopal or near syncopal event at home. He relates that he was getting ready to go out of the house, currently has an indwelling Bocanegra, was getting his pants buttoned around the catheter tubing, and then does not really remember what happened and then recalls sitting on the toilet with his family around him calling 911 as he related to them that he was fine. His notes that she was helping him get dressed, and the time that he cannot really account for he got poorly responsive although not unresponsive, did not truly lose consciousness but did get very pale and sweaty and his eyes were unfocused, he staggered to his knees, and then she was able to help him sit up on the toilet, and then called 911. After that he seems to have slowly come back to feeling like his normal self. He just had a [facility]R at [facility] last [facility]during his [facility] workup there, he was having a lot of urinary issues as well and the whip sawyer was able to get him in with urology [facility]. At the urology visit he also apparently had a similar episodenot entirely clear what had happened (will find records to review) but notes from there he was sent to the ER, and was evaluated by cardiology there who then had him stay in the hospital until proceeding with TAVR 2 days later. He currently feels fine and wants to go home Admission Exam Per Admitting Provider in general he is awake alert oriented pleasant no distress. HEENT normocephalic atraumatic mucous membranes moist. Cardio is regular without rubs murmurs gallops. Lungs are clear to auscultation bilaterally no rales rhonchi or wheezes good effort. Skin shows no rashes no pallor or icterus. Extremities show no cyanosis clubbing or edema. 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 Mental status shows good recent and remote recall normal mood and affect good judgment and insight. He does have a chronic indwelling Bocanegra at this time. Principal Diagnosis Vasovagal syncope Discharge Exam in general he is awake alert oriented pleasant no distress. HEENT normocephalic atraumatic mucous membranes moist. Cardio is regular without rubs murmurs gallops. Lungs are clear to auscultation bilaterally no rales rhonchi or wheezes good effort. Skin shows no rashes no pallor or icterus. Extremities show no cyanosis clubbing or edema. 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 Mental status shows good recent and remote recall normal mood and affect good judgment and insight. He does have a chronic indwelling Bocanegra at this time. Discharge Data Allergies Allergy/AdvReac Type Severity Reaction Status Date / Time acetaminophen AdvReac Unknown HIVES Verified 03/05/25 17:09 ceftriaxone [From Rocephin] AdvReac Hives Verified 03/05/25 17:09 Consultations 03/05/25 16:33 ED Decision to Admit Stat Hospital Course (1) Junctional rhythm: (2) Near syncope: (3) S/P TAVR (transcatheter aortic valve replacement): (4) HTN (hypertension): (5) Obstructive sleep apnea: Plan #Near syncope: - most likely due to vasovagal response of micturition reflex and dehydration 2/2 diuretics - given fluids, hold Lasix for now - orthostatic vitals were negative after fluid resuscitation last night - repeat EKG today showed normal sinus rhythm #Severe aortic stenosis: - status post TAVR - echo showed that TAVR is in good position and working well - F/U cardio On March in [facility]. #MILY: Improved. #Afib - Transient at telemetry. - Home engine monitor. - F/u cardiology - Elliquis started today, defer to cardiology for continuation. Total Time Total Time Spent Total Time Spent (In Minutes): <30 Discharge Plan Discharge Items Patient Disposition: Home - Self-Care Reason For Visit: SYNCOPE Discharge Diagnosis: Syncope likely due to dehydration/ vasovagal response. Condition on Discharge: Fair Activity: Resume your previous activity Non-emergency contact: Primary Care Provider and Tire Maker Call non-emergency contact if: your symptoms worsen Follow-up/Referrals: Henrique Arambula MD [Primary Care Provider] - (Pt will call to schedule follow up) Alison Hebert MD [Resident] - Diet: Heart Healthy Fluids: 1500ml (6 cups) Addtl Attending Provider Instructions: You were admitted to the hospital for syncope most likely because of vasovagal response to multifactorial cause including Bocanegra's manipulation, dehydration due high dose of water pill along with other cardiac and urology medicine which are potential for low blood pressure. Your blood pressure was low when you came in, Heart rate was low baseline, we gave you some fluids and you felt better. Cardiac work up including EKG, Echo was reassuring and fortunately the valve they replaced for you is intact so far, with normal pumping function of your heart. We will cut off one of your water pill, Lasix and continue the other called Spironolactone. Its very common for people to have vasovagal response(defined as low blood pressure without reflex increase in heart rate or decrease in heart rate ) and have syncopal symptoms like you had, especially when your bladder is full( like it was in your urology office) or there is a bocanegra's catheter in which is manipulated (like it was when you were buttoning you pants around bocanegra's. This fits to your presentation very well. Regarding your episodes before surgery at Urology's office, you bladder was distended with urine and you passed out transient at urologist's office. Full bladder again is another very common cause of vasovagal attack in people. So we are convinced that all of your syncope so far had very potential reason, which can be managed with certain precautions. We would suggest you to stay hydrated, at least 60-80 ounces of fluid intake everyday, increase fluid when you are exercising and be careful with bocanegra's movement as far as possible. We kept you un monitoring analyst overnight. There were some instance when you had some rhythm issues like atrial fibrillation, extra rhythm called PVCs and PACs, but it was good enough to maintain your blood pressure and you did not have symptoms, this makes plausible that your syncope is probably not related to this transient rhythm issue. However, to make sure, we recommend you to be in engine monitor, which you can collect from cardiology office, once you receive call from them. After you are on this monitor for a month, you are supposed to see cardiology team, who will evaluate your rhythm, and will suggest you accordingly. We talked to whip sawyer as well, who do not feel we need to take extra steps right away, hence we suggest you to be on monitor right after this will be available to you. A discharge summary will be sent to your primary care physician to ensure continuity of care. Please bring this discharge summary with you to your next office appointment so that your provider can review it at that time. Medications: Your medication list has been reviewed and reconciled upon discharge to ensure accuracy and continuity of care. An updated list of all your medications is included with your hospital discharge paperwork. Please review this list closely and make note of any changes to your medications. 1. You Lasix has been stopped. Continue rest of your home medications as prescribed. 2. Apixaban( Eliquis) 5 mg BID to continue until cardiology apt We would hold Lasix until next cardiology appointment. Follow up appointments: - Make a follow up appointment with your PCP within the next week. It is very important that you follow up with them shortly after discharge from the hospital. - Keep all of your follow up appointments as already scheduled. If you cannot make an appointment, notify your provider. CONTACT YOUR PRIMARY CARE PROVIDER if you experience any of the following: - Difficulty following your treatment plan - Difficulty taking any of your medications CALL 911 OR GO TO THE EMERGENCY DEPARTMENT if you experience any of the following: - Syncope, sudden loss of consciousness, severe chest pain - Sudden, severe abdominal pain or nausea/vomiting - Severe chest pain or chest pain that radiates to your jaw or arm - Sudden, severe shortness of breath or difficulty breathing Addtl Interactive Multimedia Designer Provider Instructions: Follow up with your primary doctor within next 1 weeks of discharge. Pending Studies at Discharge: No Stand-Alone Forms: My [facility], Smoking Cessation Medications and DC Order Prescriptions: New Eliquis 5 mg tablet 5 mg PO BID 30 Days Qty: 60 0RF Continued spironolactone 50 mg tablet 50 mg PO DAILY Qty: 90 3RF irbesartan 300 mg tablet 300 mg PO DAILY Qty: 90 3RF potassium chloride 20 mEq tablet extended release 20 meq PO DAILY Qty: 90 3RF isosorbide mononitrate 60 mg tablet extended release 24 hr 60 mg PO DAILY Qty: 90 3RF CPAP Machine Misc See Rx Instructions .ROUTE .COMPLEX Qty: 1 0RF Rx Instructions: new machine, compliance download capabilities and estimated AHI and leak. CPAP 17 cm H2O. Mask fit to patient comfort, supplies as needed; T&B aspirin [Adult Aspirin Regimen] 81 mg tablet,delayed release (DR/EC) 81 mg PO DAILY atorvastatin 80 mg tablet 80 mg PO DAILY multivitamin Tablet 1 tab PO DAILY tamsulosin 0.4 mg capsule 0.4 mg PO DAILY ezetimibe 10 mg tablet 10 mg PO DAILY nitroglycerin 0.4 mg tablet, sublingual 0.4 mg SL ONCE PRN (Reason: Chest Pain) Discontinued furosemide 40 mg tablet 40 mg PO DAILY Qty: 90 3RF Discharge Orders: Discharge Order (Routine); Ordered 03/06/25 Ordered By: Alison Wesley/Other Patient Handouts: Treating Syncope: Prevention, Syncope Tx Heart, Treatment for Vasovagal Syncope, Understanding Vasovagal Syncope Admission Data Admit Date/Time: 03/05/25 17:55 Attending Provider: Zain Maldonado Admit Provider: Zain Maldondao Primary Care Provider: Henrique Arambula Other Providers: Liz Leyva Other Interventions: Discharge Summary Assessment (RN) Last Done: 03/06/25 12:33 Supervising Physician Co-Signing Physician Notes I personally examined the patient and verified all evans points of history and exam, discussed case, and agree with decision making with Dr Heebrt feeling good. Walking okay. No further syncope or lightheadedness. Incidentally noted to be in A-fib RVR from about 1:30 AM to 2:20 AMno conversion pause whenever he converted back to sinus rhythm, and he does not recall even waking up during that time.Totally asymptomatic. Family present, answered all questions to the best my ability and to their satisfaction. Vitals noted, in general he is awake and alert pleasant no distress. HEENT normocephalic atraumatic mucous membranes moist. Breathing unlabored no accessory muscle use good effort. Skin without rashes pallor or icterus. Neuro without focal deficits. Labs and diagnostics noted. A-fib on monitor for about an hour in the middle of the night, no conversion pause near syncopeappears to have been due to volume depletion and maybe a little bit of orthostasis yesterday; last week [facility] records noted a blood pressure of about 70/40 whenever he was in the urology office and then no notable rhythm issues/etc.probably was either vagal from a full bladder or orthostatic/volume related then as well. Discussed that now he is status post TAVR and frequently diuretic needs will changegiven his dehydration/MILY/near syncopefor now we will simply stop the Lasix entirelydiscussed what to watch for as far as if it needed to be resumed, but hopefully can discontinue indefinitely. Junctional rhythmstransiently would have what appeared to be junctional rhythms without any bradycardia/complete heart block or other rhythm arrhythmias to show for itand happened while he was in the room with him yesterday was totally asymptomatic heart rate 65. Suspect this is an incidental and asymptomatic finding, but given that he did have multiple syncopal episodes, prudence would dictate an outpatient event monitorhe expresses a good understanding of this. This will be set up in the cardiology officeI asked nurse navigator to assist newly diagnosed A-fibwas asymptomatic with heart rates [id number] for about an hour in the middle of the night and spontaneously converted. No conversion pause therefore I highly doubt the A-fib has anything to do with his near syncope. We discussed rate control, but given that he was here with syncope and his rates spontaneously controlled and his baseline heart rate is in the 6070 range I would hesitate to add beta-blockade or other rate control unless he truly proved to need itdiscussed that the cardiac event monitor will also monitor for often he is in A-fib, and chronically something like an Apple Watch could be quite useful as well. For now no clear rate control indicated. Discussed anticoagulation and will initiate Eliquis. Follow-up with primary whip sawyer for ongoing discussion and management. Safe/stable for home. Otherwise as above. Resident Activity Tracking Resident Involvement: Resident Care Provided Care Provided: Adult Hospital Medicine
[2025-03-06 12:34] VITALS: BP 163/85; PULSE 82
--- NOTE | 2025-03-06 13:28 | Billing Data ---
Date of Service March 06, 2025 Coding Level of Care Code 91190 IN/OBS DISCH 30 MIN/LESS
--- NOTE | 2025-03-09 03:52 | Electrocardiogram Report ---
Test Reason : Blood Pressure : */* mmHG Vent. Rate : 70 BPM Atrial Rate : 60 BPM P-R Int : * ms QRS Dur : 106 ms QT Int : 414 ms P-R-T Axes : * -29 74 degrees QTcB Int : 447 ms Accelerated Junctional rhythm with occasional Premature ventricular complexes Abnormal ECG When compared with ECG of 04-Jun-2012 08:44, Accelerated Junctional rhythm has replaced Sinus rhythm T wave inversion no longer evident in Lateral leads Confirmed by Ravinder Fernández ([id number]) on 03/09/2025 3:52:01 AM Referred By: REFERRED SELF Confirmed By: Ravinder Fernández
--- NOTE | 2025-03-09 03:53 | Electrocardiogram Report ---
Test Reason : Blood Pressure : */* mmHG Vent. Rate : 78 BPM Atrial Rate : 78 BPM P-R Int : 212 ms QRS Dur : 118 ms QT Int : 402 ms P-R-T Axes : 56 -2 39 degrees QTcB Int : 458 ms Sinus rhythm with 1st degree A-V block with Premature atrial complexes Non-specific intra-ventricular conduction delay Nonspecific T wave abnormality When compared with ECG of 05-Mar-2025 15:02, Sinus rhythm has replaced Junctional rhythm Confirmed by Ravinder Fernández ([id number]) on 03/09/2025 3:52:34 AM Referred By: REFERRED SELF Confirmed By: Ravinder Fernández
== END 2025-03-06 12:36 | disposition home or self-care (01) ==
LOC: ED 14:53 → 2S 17:55 → INTOOBSV 17:55 → 2S 19:52
DX: Z79.82 Long term (current) use of aspirin; R55 Syncope and collapse; Z95.2 Presence of prosthetic heart valve; I10 Essential (primary) hypertension; I48.91 Unspecified atrial fibrillation; Z79.899 Other long term (current) drug therapy; G47.33 Obstructive sleep apnea (adult) (pediatric); Z96.0 Presence of urogenital implants; I25.10 Atherosclerotic heart disease of native coronary artery without angina pectoris; N17.9 Acute kidney failure, unspecified; I35.0 Nonrheumatic aortic (valve) stenosis; Z88.1 Allergy status to other antibiotic agents; Z88.6 Allergy status to analgesic agent

== ENCOUNTER 2025-08-09 16:39 | Observation (INO) ==
[2025-08-09] MEDS: LIDOCAINE 2% JELLY 5 ML TUBE EXT ONE (17:46)
--- NOTE | 2025-08-09 18:09 | Emergency Department Note ---
Impression & Plan Acute urinary retention, Acute UTI, Leukocytosis, Anticoagulated, Anemia ED Provider Note NAME: DAVIDE AGEE AGE: 70 SEX: M : 1955 ARRIVES VIA: Walk-In INFORMANT: [Patient][] ED PROVIDER(S): [Carroll Neely MD] CHIEF COMPLAINT: Penile discharge HISTORY OF PRESENT ILLNESS: The patient is a 70-year-old male who had surgery on his urinary system to deal with a distended urinary bladder. He has been without a Hays catheter now for about 4 weeks. The patient states that in the last 24 hours, he has noticed decreased urine output and then today, he has had some bloody/leakage of urine onto his pants and underwear. He is not noticing a fever. He has no flank pain. There has been no vomiting or diarrhea. He denies any increased distention to his abdomen. Of note, the patient is on Eliquis. PMHx/PSHx/Social Hx: See Below PHYSICAL EXAM: GENERAL: Patient is in no acute distress. HEENT: No acute trauma, normocephalic atraumatic, mucous membranes moist, no nasal congestion. NECK: No stridor, no adenopathy, no meningismus, trachea is midline. LUNGS: Clear to auscultation bilaterally, no wheeze, no rhonchi, breath sounds equal. HEART: Without murmurs gallops or rubs, regular rate and rhythm. ABDOMEN: Soft, nontender, no peritonitis. Mild abdominal distention noted. EXTREMITIES: No cyanosis, full range of motion of all the joints without pain or difficulty. NEUROLOGIC: Oriented x 3, no acute motor or sensory deficits, no focal weakness. SKIN: No jaundice, no diaphoresis. Groin: The patient has some bloody urine appearing discharge on his depends DIFFERENTIAL DIAGNOSIS: Urinary retention, UTI, renal failure, among others. EMERGENCY DEPARTMENT PROCEDURES: Bladder scan showed over 700 cc, significant retention. MEDICAL DECISION MAKING: There is a mild leukocytosis, this would be consistent with infection. The patient is anemic with a hemoglobin of 10.2, he does carry history of anemia although, his hemoglobin today is lower than his typical baseline. There is a normal platelet count. No bandemia. No renal failure or significant electrolyte abnormality. Urinalysis does show findings of infection. His urine appeared grossly bloody. A bladder scan was done showing significant retention with over 700 cc. The patient had a Hays catheter placed and the bladder drained. He felt improved. I did review his previous records, he has had a resistant staph infection in the urine previously. The patient was given IV daptomycin as antibiotic coverage. He was given a 500 cc saline bolus. Given his presentation, given his findings, given his history of resistant UTI, I do think a hospital stay and IV antibiotic therapy would be warranted. I did speak with the patient and case management, the on-call hospitalist was consulted. Prior/Outside records/notes reviewed: None Imaging/x-ray results per my interpretation: Chronic Medical/Social conditions affecting care: Advanced age, chronic Eliquis use. Care/Management discussed with: Case management, the on-call hospitalist. Level of care consideration(s): After review of the information above and other included data: --I believe the patient requires escalation of care to admission DISPOSITION: Admission Past Med/Surg History Problem List (Updated 08/09/25 @ 23:42 by Carroll Neely MD) Anemia (Acute) Anticoagulated (Acute) Leukocytosis (Acute) Acute UTI (Acute) Acute urinary retention (Acute) Junctional rhythm Medical History Sinus bradycardia Hypercalcemia Obstructive sleep apnea HTN (hypertension) Chronic diastolic congestive heart failure CAD, multiple vessel Medically managed. 2017 cath: borderline occlusive ostial RCA, distal Cx, mid LAD Depression Bacteremia Syncope Sepsis Severe sepsis Transaminitis Elevated procalcitonin Fever MILY (acute kidney injury) Elevated lactic acid level Elevated troponin AMS (altered mental status) Severe aortic stenosis Acute diastolic (congestive) heart failure (2011) Basal ganglia hemorrhage (2009) Left thalamic infarction (2004) Carotid occlusion, left (2004) Multiple pulmonary nodules (2013) Bicipital tendinitis, left shoulder (2015) Central retinal vein occlusion (2016) LVH (left ventricular hypertrophy) Surgical History S/P TAVR (transcatheter aortic valve replacement) Family History Father Hypertension Social History Smoking Status: Never smoker Do You Dip or Chew Tobacco: No; Hx Alcohol Use: Yes Alcohol type: wine Hx Substance Use: No Preferred Language: Sami Communication Ability: Effective Seismometer Operator Required: No Beliefs That Will Affect Care: None Current Living Situation: Spouse Current Living Situation Comment: with Feels Safe at Home: Yes Assistive Devices: None Allergies Allergies Allergy/AdvReac Type Severity Reaction Status Date / Time acetaminophen Allergy Intermediate HIVES A Verified 05/17/25 20:29 CHILD Home Meds Home Medications Medication Instructions Recorded Confirmed atorvastatin 80 mg tablet 80 mg PO DAILY 08/21/19 05/17/25 ezetimibe 10 mg tablet 10 mg PO DAILY 03/05/25 05/17/25 multivitamin 1 tab PO DAILY 03/05/25 05/17/25 nitroglycerin 0.4 mg sublingual 0.4 mg sublingual DIRECTED PRN 03/05/25 05/17/25 tablet Chest Pain apixaban 5 mg tablet (Eliquis) 5 mg PO BID 05/17/25 05/17/25 Previous Rx's Medication Instructions Recorded irbesartan 300 mg tablet 300 mg PO DAILY #90 tabs 05/29/24 potassium chloride 20 mEq 20 meq PO DAILY #90 tabs 05/29/24 tablet,extended release isosorbide mononitrate 60 mg 60 mg PO DAILY #90 tabs 02/21/25 tablet,extended release 24 hr ciprofloxacin HCl 500 mg tablet 500 mg PO Q12H #20 tabs 05/17/25 (Cipro) spironolactone 50 mg tablet 50 mg PO DAILY #90 tabs 05/30/25 Results & Data (ED) Vital Signs Vital Signs - 24 hr 08/09/25 16:46 08/09/25 18:03 08/09/25 18:05 Temperature 36.5 C Temperature Source Temporal Artery Scan Pulse Rate 72 79 Pulse Rate [Apical] Pulse Rate from SpO2 Sensor Respiratory Rate 20 Respiratory Depth Normal Blood Pressure 150/78 H 170/96 H Blood Pressure [Right Arm] Blood Pressure Mean 102 128 Blood Pressure Mean [Right Arm] Pulse Oximetry 97 Oxygen Delivery Method Room Air Sepsis Recent Fever Within 48 Hours No Sepsis New/Unexplained Change in Mental Status No Sepsis Action Taken by Nursing No Action Required 08/09/25 18:06 08/09/25 19:00 Temperature Temperature Source Pulse Rate 73 Pulse Rate [Apical] 72 Pulse Rate from SpO2 Sensor 68 Respiratory Rate 20 16 Respiratory Depth Blood Pressure Blood Pressure [Right Arm] 171/88 H Blood Pressure Mean Blood Pressure Mean [Right Arm] 115 Pulse Oximetry 99 96 Oxygen Delivery Method Room Air Sepsis Recent Fever Within 48 Hours Sepsis New/Unexplained Change in Mental Status Sepsis Action Taken by [facility] Medications Current Medication List: was personally reviewed by me Laboratory Data Attestation: I reviewed the patient's lab results. 08/09/25 17:54 08/09/25 17:54 Lab Results 08/09/25 Range/Units 17:54 WBC 11.98 H (4.8-10.8) K/ul RBC 3.63 L (4.70-6.10) M/uL Hgb 10.2 L (14.0-18.0) g/dl Hct 32.2 L (42.0-52.0) % MCV 88.7 (80.0-100.0) fL MCH 28.1 (25.0-34.0) pg MCHC 31.7 L (32.0-36.0) g/dL RDW Std Deviation 47.7 H (36.4-46.3) fL RDW Coeff of Bret 14.9 H (11.5-14.5) % Plt Count 330 (130-400) K/uL MPV 10.7 (9.4-12.4) fL Immature Gran % (Auto) 0.4 % Neut % (Auto) 85.8 % Lymph % (Auto) 7.2 % [place] % (Auto) 5.6 % Eos % (Auto) 0.6 % Baso % (Auto) 0.4 % Neut # (Auto) 10.28 H (1.40-6.50) K/uL Lymph # (Auto) 0.86 L (1.20-3.40) K/uL [place] # (Auto) 0.67 H (0.11-0.59) K/uL Eos # (Auto) 0.07 (0.00-0.50) K/uL Baso # (Auto) 0.05 (0.00-0.20) K/uL Immature Gran # (Auto) 0.05 (0.01-0.20) K/uL Sodium 140 (136-145) mmol/L Potassium 3.7 (3.5-5.1) mmol/L Chloride 108 H (98-107) mmol/L Carbon Dioxide 24 (21-32) mmol/L Anion Gap 8 (3-11) BUN 19 (6-23) mg/dl Creatinine 0.92 (0.6-1.4) mg/dl Est Cr Clr Drug Dosing 89.4 ml/min eGFR 88.93 BUN/Creatinine Ratio 20.7 H (10-20) Glucose 160 H (70-99(Fasting)) mg/dl Calcium 9.8 (8.6-10.3) mg/dl Magnesium 1.8 (1.7-2.4) mg/dl Urine Color Red Urine Appearance Turbid A (Clear) Urine pH 6.5 (4.5-7.5) Ur Specific [place] >= 1.030 (1.000-1.030) Urine Protein 3+ H (Negative) Urine Glucose (UA) Trace H (Negative) Urine Ketones Negative (Negative) Urine Blood 3+ H (Negative) Urine Nitrite Negative (Negative) Urine Bilirubin 1+ H (Negative) Urine Urobilinogen Negative (Negative) Ur Leukocyte Esterase Negative (Negative) Urine RBC >20 H (0-2) /hpf Urine WBC 21-50 H (0-5) /hpf Ur Epithelial Cells 0-2 (0-2) /hpf Urine Bacteria 1+ H (None Seen) Urine Comment Administered Medications Discontinued Medications Sodium Chloride (Nss) 500 mls @ 999 mls/hr IV .Q31M ONE Stop: 08/09/25 19:39 Last Infusion: 08/09/25 21:00 Dose: Infused Documented By: abl Admin: 08/09/25 19:28 Dose: 999 mls/hr Documented By: abl Daptomycin 675 mg/ Syringe 13.5 mls @ 6.75 mls/min IV NOW ONE; Protocol Stop: 08/09/25 19:20 Last Admin: 08/09/25 19:55 Dose: 6.75 mls/min Documented By: abl Ceftriaxone Sodium (Rocephin) 2,000 mg in 50 mls @ 100 mls/hr IV NOW STA Stop: 08/09/25 22:34 Last Admin: 08/09/25 22:26 Dose: 100 mls/hr Documented By: abl Lidocaine HCl (Lidocaine 2% Jelly 5 Ml Tube) 5 ml EXT NOW ONE Stop: 08/09/25 17:28 Last Admin: 08/09/25 17:46 Dose: 5 ml Documented By: CAP Discharge Plan Visit Data Chief Complaint: Penile Discharge Stated Complaint: BLEEDING FROM [facility] ED Provider: Carroll Neely Discharge Problem: Acute urinary retention, Acute UTI, Leukocytosis, Anticoagulated, Anemia Patient Disposition: Admitted As Inpatient Condition: Fair Discharge Problem: Leukocytosis Qualifiers: Leukocytosis type: unspecified Qualified Code(s): D72.829 - Elevated white blood cell count, unspecified Anemia Qualifiers: Anemia type: unspecified type Qualified Code(s): D64.9 - Anemia, unspecified
[2025-08-09 18:23] LABS: Hematocrit (blood only) 32.2 % (42.0-52.0); Hemoglobin 10.2 g/dl (14.0-18.0); Immature Granulocytes # (auto) 0.05 K/uL (0.01-0.20); Immature Granulocytes % (auto) 0.4 %; Mean Corpuscular Hemoglobin 28.1 pg (25.0-34.0); Mean Corpuscular Volume 88.7 fL (80.0-100.0); Platelet Count 330 K/uL (130-400); RDW Standard Deviation 47.7 fL (36.4-46.3); Red Blood Count 3.63 M/uL (4.70-6.10); White Blood Count 11.98 K/ul (4.8-10.8)
[2025-08-09 18:26] LABS: Appearance Urine Turbid (Clear); Glucose Urine UA Trace (Negative)
[2025-08-09 18:31] LABS: Epithelial Cell Urine 0-2 /hpf (0-2)
[2025-08-09 18:42] LABS: Anion Gap 8.0 (3-11); Blood Urea Nitrogen 19.0 mg/dl (6-23); Calcium 9.8 mg/dl (8.6-10.3); Carbon Dioxide 24.0 mmol/L (21-32); Chloride 108.0 mmol/L (98-107); Creatinine Clr Calc Pharmacy 89.4 ml/min; Glucose 160.0 mg/dl (70-99(Fasting)); Potassium 3.7 mmol/L (3.5-5.1); Sodium 140.0 mmol/L (136-145)
[2025-08-09] MEDS: SODIUM CHLORIDE 0.9% 500 ML IV ONE (19:28)
[2025-08-09] MEDS: DAPTOmycin 675 MG in SYRINGE 0 ML IV ONE (19:55)
--- NOTE | 2025-08-09 20:44 | History & Physical Report ---
Date of Service August 09, 2025 Assessment & Plan (1) Acute UTI: (2) Acute urinary retention: (3) Anticoagulated: (4) Gross hematuria: Plan The patient is a 70-year-old male with a past medical history including hyperlipidemia, hypertension, CAD, hypokalemia, status post TAVR 02/28/2025, atrial fibrillation, on chronic anticoagulation with Eliquis. The patient presents to the emergency department with complaint of bloody drainage of urine into his pants and underwear, with decreased urine output over the last 24 hours. The patient has a history of a urologic procedure performed at [facility] 07/16, had a Hays catheter placed during that hospitalization, but was discontinued prior to discharge. He had been having no issues with urination until yesterday, when he began to have decreased output, and then today noted blood in his urine with blood on his underwear and pants. He is on Eliquis, and last dosing that was taken was the morning of 08/09. He denies any fevers or chills. He did have a positive urinalysis on 05/17/2025 for multidrug- resistant Staph epidermidis. Urinalysis in the emergency department suggestive of infection, and he was started on daptomycin 675 mg IV from the ED, which will be continued, and we added ceftriaxone 2 g IV daily. He did have a Hays catheter placed in the ED due to urinary retention, which will be continued, and was given 1 L normal saline bolus. The Hays catheter is draining grossly hematuric blood. His reports that he was started on sertraline about 3 days ago for depression, which has been an issue this year due to multiple medical issues. Acute urinary retention/acute UTI/status post placement of Hays catheter in the ED/status post urologic procedure 07/16 at [facility]- Follow urine culture sensitivity UTI on 05/17/2025 showed MDR Staph epidermidis Was placed on daptomycin 675 mg IV in ED, which will be continued. Also placed on ceftriaxone 2 g IV every 24 hours Status post 1 L normal saline bolus in the ED Placed on NSS + KCl 20 mEq at 100 mL/h x 1 L N.p.o. after midnight Consult urology, patient does see urology at [facility], and had a procedure done they are 07/16 Will hold Eliquis due to significant gross hematuria CAD/hypertension/status post TAVR 02-28-25/atrial fibrillation- As noted above, hold Eliquis due to gross hematuria Continue irbesartan, isosorbide mononitrate, nitroglycerin sublingual as needed, potassium chloride. Hold spironolactone Hyperglycemia- Glucose 160 on admission. No known history of diabetes or prediabetes Check hemoglobin A1c in the a.m. If glucose is elevated on morning labs, would consider placing on Accu-Cheks at that time Hyperlipidemia- Continue Zetia and atorvastatin Depression- Started sertraline 25 mg daily about 3 days ago. He will follow-up in the outpatient office with his prescriber History of Present Illness Chief Complaint: The patient presents to the emergency department with complaint of bloody drainage of urine into his pants and underwear, with decreased urine output over the last 24 hours. The patient has a history of a urologic procedure performed at [facility] 07/16, had a Hays catheter placed during that hospitalization, but was discontinued prior to discharge. He had been having no issues with urination until yesterday, when he began to have decreased output, and then today noted blood in his urine with blood on his underwear and pants. He is on Eliquis, and last dosing that was taken was the morning of 08/09. He denies any fevers or chills. He did have a positive urinalysis on 05/17/2025 for multidrug-resistant Staph epidermidis. Urinalysis in the emergency department suggestive of infection, and he was started on daptomycin 675 mg IV from the ED, which will be continued, and we added ceftriaxone 2 g IV daily. He did have a Hays catheter placed in the ED due to urinary retention, and was given 1 L normal saline bolus. The Hays catheter is draining grossly hematuric blood. Primary Care Provider: Sarwat Ramirez MD The patient is a 70-year-old male with a past medical history including hyperlipidemia, hypertension, CAD, hypokalemia, status post TAVR 02/28/2025, atrial fibrillation, on chronic anticoagulation with Eliquis. The patient presents to the emergency department with complaint of bloody drainage of urine into his pants and underwear, with decreased urine output over the last 24 hours. The patient has a history of a urologic procedure performed at [facility] 07/16, had a Hays catheter placed during that hospitalization, but was discontinued prior to discharge. He had been having no issues with urination until yesterday, when he began to have decreased output, and then today noted blood in his urine with blood on his underwear and pants. He is on Eliquis, and last dosing that was taken was the morning of 08/09. He denies any fevers or chills. He did have a positive urinalysis on 05/17/2025 for multidrug- resistant Staph epidermidis. Urinalysis in the emergency department suggestive of infection, and he was started on daptomycin 675 mg IV from the ED, which will be continued, and we added ceftriaxone 2 g IV daily. He did have a Hays catheter placed in the ED due to urinary retention, and was given 1 L normal saline bolus. The Hays catheter is draining grossly hematuric blood. Allergies Allergy/AdvReac Type Severity Reaction Status Date / Time acetaminophen Allergy Intermediate HIVES A Verified 05/17/25 20:29 CHILD Home Medications Medication Instructions Recorded Confirmed Type atorvastatin 80 mg tablet 80 mg PO DAILY 08/21/19 05/17/25 History irbesartan 300 mg tablet 300 mg PO DAILY #90 tabs 05/29/24 05/17/25 Rx potassium chloride 20 mEq 20 meq PO DAILY #90 tabs 05/29/24 05/17/25 Rx tablet,extended release isosorbide mononitrate 60 mg 60 mg PO DAILY #90 tabs 02/21/25 05/17/25 Rx tablet,extended release 24 hr ezetimibe 10 mg tablet 10 mg PO DAILY 03/05/25 05/17/25 History multivitamin 1 tab PO DAILY 03/05/25 05/17/25 History nitroglycerin 0.4 mg sublingual 0.4 mg sublingual DIRECTED PRN 03/05/25 05/17/25 History tablet Chest Pain apixaban 5 mg tablet (Eliquis) 5 mg PO BID 05/17/25 05/17/25 History ciprofloxacin HCl 500 mg tablet 500 mg PO Q12H #20 tabs 05/17/25 Rx (Cipro) spironolactone 50 mg tablet 50 mg PO DAILY #90 tabs 05/30/25 Rx Past Med/Surg History Problem List (Updated 08/10/25 @ 04:23 by Deni Stevenson MD) Gross hematuria Anemia (Acute) Anticoagulated (Acute) Leukocytosis (Acute) Acute UTI (Acute) Acute urinary retention (Acute) Junctional rhythm Medical History Sinus bradycardia Hypercalcemia Obstructive sleep apnea HTN (hypertension) Chronic diastolic congestive heart failure CAD, multiple vessel Medically managed. 2017 cath: borderline occlusive ostial RCA, distal Cx, mid LAD Depression Bacteremia Syncope Sepsis Severe sepsis Transaminitis Elevated procalcitonin Fever MILY (acute kidney injury) Elevated lactic acid level Elevated troponin AMS (altered mental status) Severe aortic stenosis Acute diastolic (congestive) heart failure (2011) Basal ganglia hemorrhage (2009) Left thalamic infarction (2004) Carotid occlusion, left (2004) Multiple pulmonary nodules (2013) Bicipital tendinitis, left shoulder (2015) Central retinal vein occlusion (2015) LVH (left ventricular hypertrophy) Surgical History S/P TAVR (transcatheter aortic valve replacement) Family History Father Hypertension Social History Smoking Status: Never smoker Second Hand Exposure: No; Do You Dip or Chew Tobacco: No; Tobacco Cessation Education Requested by Patient: No Hx Alcohol Use: Yes Alcohol type: wine Hx Substance Use: No Preferred Language: Latvian Communication Ability: Effective Family Preservation Officer Required: No Beliefs That Will Affect Care: None Current Living Situation: Spouse Current Living Situation Comment: with Other Information That Helps Us Care for You: No Feels Safe at Home: Yes Safety Concerns: Feels Safe At This Time Assistive Devices: CPAP and Walker Review of Systems Review of Systems: The patient denies chest pain, palpitations, shortness of breath, dyspnea on exertion, cough, lower extremity swelling, sore throat, nausea, vomiting, diarrhea , constipation, blood in stool, lightheadedness, dizziness, headache, memory loss, loss of consciousness, rash, imbalance, focal weakness, numbness or tingling in arms or legs, generalized arthralgias or myalgias, back or neck pain, or night sweats. The review of systems is otherwise negative other than for that already noted above, and at least 10 systems have been reviewed. Physical Exam Physical Exam: The patient is awake, alert and oriented 3, well developed and well nourished, normocephalic and atraumatic, lying in bed and in no acute distress. HEENT--PERRL, EOMI, mucous membranes and oropharynx dry. Neck--supple. No JVD. No bruits. Thyroid normal, trachea midline, no adenopathy. Heart--normal S1 and S2. No murmurs, rubs or gallops. Lungs--clear bilaterally, no respiratory distress, no accessory muscle use. Abdomen--normal bowel sounds and soft. Nontender. Nondistended, no hernias or masses, no organomegaly. Extremities--no cyanosis or clubbing. No edema. There are good distal pulses b/l. Dermatologic--normal skin turgor, normal color, no abnormal lymph nodes, no rash. Neurologic--cranial nerves II through XII grossly intact. Rheumatologic--normal range of motion. Psychiatric--appears mildly depressed Results & Data Results & Data Vital Signs (Past 12 Hours) Vital Signs Temp Pulse Pulse Resp BP BP Pulse Ox 08/09/25 19:00 72 16 171/88 H 96 08/09/25 18:06 73 20 99 08/09/25 18:05 170/96 H 08/09/25 18:03 79 08/09/25 16:46 36.5 C 72 20 150/78 H 97 O2 Del Method 08/09/25 19:00 Room Air 08/09/25 18:06 08/09/25 18:05 08/09/25 18:03 08/09/25 16:46 Room Air Laboratory Results Laboratory Results WBC 11.98 K/ul (4.8-10.8) H 08/09/25 17:54 RBC 3.63 M/uL (4.70-6.10) L 08/09/25 17:54 Hgb 10.2 g/dl (14.0-18.0) L 08/09/25 17:54 Hct 32.2 % (42.0-52.0) L 08/09/25 17:54 MCV 88.7 fL (80.0-100.0) 08/09/25 17:54 MCH 28.1 pg (25.0-34.0) 08/09/25 17:54 MCHC 31.7 g/dL (32.0-36.0) L 08/09/25 17:54 RDW Std Deviation 47.7 fL (36.4-46.3) H 08/09/25 17:54 RDW Coeff of Bret 14.9 % (11.5-14.5) H 08/09/25 17:54 Plt Count 330 K/uL (130-400) 08/09/25 17:54 MPV 10.7 fL (9.4-12.4) 08/09/25 17:54 Immature Gran % (Auto) 0.4 % 08/09/25 17:54 Neut % (Auto) 85.8 % 08/09/25 17:54 Lymph % (Auto) 7.2 % 08/09/25 17:54 [place] % (Auto) 5.6 % 08/09/25 17:54 Eos % (Auto) 0.6 % 08/09/25 17:54 Baso % (Auto) 0.4 % 08/09/25 17:54 Neut # (Auto) 10.28 K/uL (1.40-6.50) H 08/09/25 17:54 Lymph # (Auto) 0.86 K/uL (1.20-3.40) L 08/09/25 17:54 [place] # (Auto) 0.67 K/uL (0.11-0.59) H 08/09/25 17:54 Eos # (Auto) 0.07 K/uL (0.00-0.50) 08/09/25 17:54 Baso # (Auto) 0.05 K/uL (0.00-0.20) 08/09/25 17:54 Immature Gran # (Auto) 0.05 K/uL (0.01-0.20) 08/09/25 17:54 Sodium 140 mmol/L (136-145) 08/09/25 17:54 Potassium 3.7 mmol/L (3.5-5.1) 08/09/25 17:54 Chloride 108 mmol/L (98-107) H 08/09/25 17:54 Carbon Dioxide 24 mmol/L (21-32) 08/09/25 17:54 Anion Gap 8 (3-11) 08/09/25 17:54 BUN 19 mg/dl (6-23) 08/09/25 17:54 Creatinine 0.92 mg/dl (0.6-1.4) 08/09/25 17:54 Est Cr Clr Drug Dosing 89.4 ml/min 08/09/25 17:54 eGFR 88.93 08/09/25 17:54 BUN/Creatinine Ratio 20.7 (10-20) H 08/09/25 17:54 Glucose 160 mg/dl (70-99(Fasting)) H 08/09/25 17:54 Calcium 9.8 mg/dl (8.6-10.3) 08/09/25 17:54 Magnesium 1.8 mg/dl (1.7-2.4) 08/09/25 17:54 Urine Color Red 08/09/25 17:54 Urine Appearance Turbid (Clear) A 08/09/25 17:54 Urine pH 6.5 (4.5-7.5) 08/09/25 17:54 Ur Specific [place] >= 1.030 (1.000-1.030) 08/09/25 17:54 Urine Protein 3+ (Negative) H 08/09/25 17:54 Urine Glucose (UA) Trace (Negative) H 08/09/25 17:54 Urine Ketones Negative (Negative) 08/09/25 17:54 Urine Blood 3+ (Negative) H 08/09/25 17:54 Urine Nitrite Negative (Negative) 08/09/25 17:54 Urine Bilirubin 1+ (Negative) H 08/09/25 17:54 Urine Urobilinogen Negative (Negative) 08/09/25 17: Ur Leukocyte Esterase Negative (Negative) 08/09/25 17:54 Urine RBC >20 /hpf (0-2) H 08/09/25 17:54 Urine WBC 21-50 /hpf (0-5) H 08/09/25 17:54 Ur Epithelial Cells 0-2 /hpf (0-2) 08/09/25 17:54 Urine Bacteria 1+ (None Seen) H 08/09/25 17:54 Urine Comment 08/09/25 17:54 Code Status & VTE Plan Code Status Full code VTE Prophylaxis Plan VTE Prophylaxis will be ordered: Yes PG Care Time/CCT Total # of Minutes Spent Total Time Spent with Patient: Total time spent is greater than 50% in coordination of care (as documented) at patient's floor/unit and/or counseling patient: Coding Level of Care Code 91731 INT INP/OBS CARE MIN Diagnoses Acute UTI N39.0 Acute urinary retention R33.8 Anticoagulated Z79.01 Gross hematuria R31.0
[2025-08-09 21:05] LABS: Magnesium 1.8 mg/dl (1.7-2.4)
[2025-08-09] MEDS: cefTRIAXone SODIUM 2,000 MG/50 ML BAG IV STA (22:26)
[2025-08-09] MEDS ORDERED: NITROGLYCERIN SL 0.4 MG/TAB TAB SL PRN (23:13)
[2025-08-09] MEDS ORDERED: ONDANSETRON INJ 2 MG/ML 2 ML VIAL IV PRN (23:13)
[2025-08-09] MEDS ORDERED: INFLUENZA VACC TS2025-26(65y+)/PF (IIV3) 0.5mL Syr IM ONE (23:48)
[2025-08-10] MEDS: NSS + 20MEQ KCL 20 MEQ/1,000 ML BAG IV SCH (00:13)
[2025-08-10 07:34] LABS: Hemoglobin A1C 6.2 % (4.5-5.6)
--- NOTE | 2025-08-10 08:45 | Urology Consultation ---
Date of Consultation August 10, 2025 Assessment & Plan (1) Gross hematuria: afebrile hd stable 70M doing ok despite hematuria and urinary retention requiring cathete replacement ~ 1 month after HOLEP procedure. - would continue holding anticoagulation today assess urine tomorrow to see if we can restart - please obtain renal bladder US rule out bladder clot - start bowel regimen - start flomax to aid trial of void when catheter able to be removed, maintain catheter for now (2) Anticoagulated: (3) Acute urinary retention: (4) Enlarged prostate: History of Present Illness Reason for Consultation: hematuria urinary retention "recent" uro procedure Attending Physician: Henrique Lyman MD History of Present Illness 70 year old gentleman had HOLEP at [facility] 1 month prior for enlarged prostate urinary retention also anticoagulated, gradually was able to void without catheter urine relatively clear, fast few days urine had gotten bloody is anticoagulated and tries to stay active was doing vigorous exercise and does appear to have some degree of constipation, this culminated in gross hematuria inability to void for which catheter placed and now draining appropriately, bothered by catheter but feeling better now Allergies Allergy/AdvReac Type Severity Reaction Status Date / Time acetaminophen Allergy Intermediate HIVES A Verified 05/17/25 20:29 CHILD Home Medications Medication Instructions Recorded Confirmed Type atorvastatin 80 mg tablet 80 mg PO DAILY 08/21/19 05/17/25 History irbesartan 300 mg tablet 300 mg PO DAILY #90 tabs 05/29/24 05/17/25 Rx potassium chloride 20 mEq 20 meq PO DAILY #90 tabs 05/29/24 05/17/25 Rx tablet,extended release isosorbide mononitrate 60 mg 60 mg PO DAILY #90 tabs 02/21/25 05/17/25 Rx tablet,extended release 24 hr ezetimibe 10 mg tablet 10 mg PO DAILY 03/05/25 05/17/25 History multivitamin 1 tab PO DAILY 03/05/25 05/17/25 History nitroglycerin 0.4 mg sublingual 0.4 mg sublingual DIRECTED PRN 03/05/25 05/17/25 History tablet Chest Pain apixaban 5 mg tablet (Eliquis) 5 mg PO BID 05/17/25 05/17/25 History ciprofloxacin HCl 500 mg tablet 500 mg PO Q12H #20 tabs 05/17/25 Rx (Cipro) spironolactone 50 mg tablet 50 mg PO DAILY #90 tabs 05/30/25 Rx Patient History Medical History Sinus bradycardia Hypercalcemia Obstructive sleep apnea HTN (hypertension) Chronic diastolic congestive heart failure CAD, multiple vessel Medically managed. 2016 cath: borderline occlusive ostial RCA, distal Cx, mid LAD Depression Bacteremia Syncope Sepsis Severe sepsis Transaminitis Elevated procalcitonin Fever MILY (acute kidney injury) Elevated lactic acid level Elevated troponin AMS (altered mental status) Severe aortic stenosis Acute diastolic (congestive) heart failure (2011) Basal ganglia hemorrhage (2009) Left thalamic infarction (2004) Carotid occlusion, left (2004) Multiple pulmonary nodules (2013) Bicipital tendinitis, left shoulder (2015) Central retinal vein occlusion (2015) LVH (left ventricular hypertrophy) Surgical History S/P TAVR (transcatheter aortic valve replacement) Family History Father Hypertension Social History Smoking Status: Never smoker Second Hand Exposure: No; Do You Dip or Chew Tobacco: No; Tobacco Cessation Education Requested by Patient: No Hx Alcohol Use: Yes Alcohol type: wine Hx Substance Use: No Preferred Language: Liberian Communication Ability: Effective Machine I Engraver Required: No Beliefs That Will Affect Care: None Current Living Situation: Spouse Current Living Situation Comment: with Other Information That Helps Us Care for You: No Feels Safe at Home: Yes Safety Concerns: Feels Safe At This Time Assistive Devices: CPAP and Walker Physical Exam Physical Exam: Gen: NAD Psych: Alert and Oriented Abd: Nontender nondistended : catheter in place draining dark urine no clots in tube Results & Data Vital Signs (Past 12 Hours) Vital Signs Temp Pulse Pulse Resp BP Pulse Ox O2 Del Method 08/10/25 07:48 36.5 C 67 20 139/87 99 BiPAP 08/10/25 02:08 78 08/10/25 00:13 150/73 H 08/09/25 23:36 36.9 C 121 H 18 148/63 H 92 Room Air 08/09/25 21:58 68 08/09/25 21:00 72 22 173/96 H 96 Room Air PG Care Time/CCT Total # of Minutes Spent Total Time Spent with Patient: Total time spent is greater than 50% in coordination of care (as documented) at patient's floor/unit and/or counseling patient: Coding Level of Care Code 95985 IN/OBS CONSULT LVL 3,45M Diagnoses Gross hematuria R31.0 Anticoagulated Z79.01 Acute urinary retention R33.8 Enlarged prostate N40.0
[2025-08-10 09:48] LABS: Hematocrit (blood only) 28.7 % (42.0-52.0); Hemoglobin 9.5 g/dl (14.0-18.0); Mean Corpuscular Hemoglobin 29.4 pg (25.0-34.0); Mean Corpuscular Volume 88.9 fL (80.0-100.0); Platelet Count 281 K/uL (130-400); RDW Standard Deviation 46.9 fL (36.4-46.3); Red Blood Count 3.23 M/uL (4.70-6.10); White Blood Count 6.70 K/ul (4.8-10.8)
[2025-08-10] MEDS: LOSARTAN POTASSIUM 50 MG TAB PO SCH (10:01)
[2025-08-10] MEDS: EZETIMIBE 10 MG TAB PO SCH (10:01)
[2025-08-10] MEDS: ISOSORBIDE MONO EXTENDED REL 60 MG TABCR PO SCH (10:02)
[2025-08-10] MEDS: MULTIVITAMIN TAB PO SCH (10:02)
[2025-08-10] MEDS: TAMSULOSIN HCL 0.4 MG CAP PO SCH (10:09)
[2025-08-10] MEDS: POTASSIUM CHLORIDE CRTAB 20 MEQ TABCR PO SCH (10:09)
[2025-08-10 10:18] LABS: Anion Gap 5.0 (3-11); Calcium 9.1 mg/dl (8.6-10.3); Carbon Dioxide 21.0 mmol/L (21-32); Chloride 112.0 mmol/L (98-107); Potassium 3.8 mmol/L (3.5-5.1); Sodium 138.0 mmol/L (136-145)
[2025-08-10 10:24] LABS: Blood Urea Nitrogen 15.0 mg/dl (6-23); Creatinine Clr Calc Pharmacy 97.6 ml/min; Glucose 144.0 mg/dl (70-99(Fasting)); Iron 32.0 mcg/dl (35-175); Total Iron Binding Cap Calc 290.0 mcg/dl (250-450); Transferrin 207.0 mg/dl (200-360); Transferrin (FE) Percent Satur 11.0 % (20-50)
[2025-08-10 10:38] LABS: Ferritin 31.6 ng/ml (8-388)
--- NOTE | 2025-08-10 11:18 | Hospitalist Progress Note ---
Date of Service August 10, 2025 Assessment & Plan (1) Catheter-associated urinary tract infection: (2) Acute urinary retention: (3) Gross hematuria: (4) Anticoagulated: (5) BPH (benign prostatic hyperplasia): (6) Acute blood loss anemia: (7) Iron deficiency: (8) History of prostate surgery: Plan 70yo male with h/0 TAVR 02/28/2025, paroxysmal atrial fibrillation on chronic anticoagulation with Eliquis, and recent [place]LE[place] on [place] [facility] [place] presenting with gross hematuria and urinary retention. By report had urinary retention in the ER at presentation thus bocanegra catheter placed. u/a suggestive of UTI and thus IV daptomycin given while in ER. #catheter-associated UTI - -patient had a bocanegra during his hospital admission in mid[place]July [place] [facility] when [place] had HoLEP procedure -would consider this a complicated UTI given that procedure and the bocanegra usage then -urine cx growing staph epi -had such in April 2025 as well -cont IV daptomycin -if culture tomorrow does not show any other pathogen then stop the rocephin -if zyvox sensitive would be in favor of using such moving forward (would need to hold recently start sertraline) #acute urinary retention with gross hematuria - -s/p bocanegra placement in ER -can hand irrigate if needed for clot removal, etc. -renal u/s obtained today - no large blood clot seen -holding Eliquis; last dose 10/10 AM -urology consult/recs appreciate -gross hematuria - 2nd to UTI? 2nd to bleeding from the prostate? other? -follow serial H/H's -if hematuria worsens, if there is significant clot formation, if bocanegra obstruction recurs frequently consider placing 3-way and starting CBI (but defer that ultimate decision to urology) -start flomax 0.4mg daily to increase chances of successful bocanegra discontinuation in the future #acute blood loss anemia and iron def anemia - -ABLA 2nd to gross hematuria -serial H/H's -Fe studies c/w Fe def - consider IV venofer -cbc in am #h/o TAVR 02/2025 - -echo this summer with mild perivalvular leak but otherwise good function and normal EF #h/o PAF - -holding Eliquis due to significant gross hematuria & anemia -he is not on AV dayan agents #h/o CAD - -no ischemic sx's at this time -cont losartan, cont imdur, cont zetia -hold statin while on daptomycin #pre-DM - -a1c 6.2% c/w pre-DM -will recreation counselor patient #Hyperlipidemia - -Continue Zetia but hold atorvastatin due to daptomycin use #Depression - -recently started sertraline 25 mg daily about 3 days ago -currently on hold here and would cont to hold in the event we use Zyvox for staph epi UTI updated at bedside multiple times today care d/w Dr Monroe from urology by phone extensive chart review completed Admission and Anticipated Discharge Date Admission Date: August 09, 2025 Subjective patient having occasional clots via bocanegra urine this am dark lund red he denies any bladder pain denies feeling poorly - in fact, he asks if he can leave the hospital today he has season tickets for [employer] and is disappointed about missing the game pt's at bedside multiple questions answered pt denies any fevers, chills eating fine Review of Systems Review of Systems: CV - no chest pain pulm - no dyspnea or MERAZ GI - no N/V Physical Exam Physical Exam: gen - NAD, lying comfortably in bed neck - no JVD mouth - MMM heart - RRR, s1 s2, 1/6 systolic murmur LSB lungs - CTA b/l abd - soft NT ND BS+; no bladder pain to palpation ext - no edema, pulses 2+ b/l - bocanegra in place, dark lund red urine Results & Data Results & Data Vital Signs (Past 12 Hours) Vital Signs Temp Pulse Pulse Resp BP Pulse Ox O2 Del Method 08/10/25 11:06 36.6 C 59 L 18 156/95 H 96 Room Air 08/10/25 07:48 36.5 C 67 20 139/87 99 BiPAP 08/10/25 02:08 78 08/10/25 00:13 150/73 H 08/09/25 23:36 36.9 C 121 H 18 148/63 H 92 Room Air Laboratory Results Laboratory Results - last 48 hr 08/09/25 08/10/25 08/10/25 17:54 04:44 09:15 WBC 11.98 H 6.70 RBC 3.63 L 3.23 L Hgb 10.2 L 9.5 L Hct 32.2 L 28.7 L MCV 88.7 88.9 MCH 28.1 29.4 MCHC 31.7 L 33.1 RDW Std Deviation 47.7 H 46.9 H RDW Coeff of Bret 14.9 H 14.9 H Plt Count 330 281 MPV 10.7 11.1 Immature Gran % (Auto) 0.4 Neut % (Auto) 85.8 Lymph % (Auto) 7.2 Lane % (Auto) 5.6 Eos % (Auto) 0.6 Baso % (Auto) 0.4 Neut # (Auto) 10.28 H Lymph # (Auto) 0.86 [address] Lane # (Auto) 0.67 H Eos # (Auto) 0.07 Baso # (Auto) 0.05 Immature Gran # (Auto) 0.05 Sodium 140 138 Potassium 3.7 3.8 Chloride 108 H 112 H Carbon Dioxide 24 21 Anion Gap 8 5 BUN 19 15 Creatinine 0.92 0.85 Est Cr Clr Drug Dosing 89.4 97.6 eGFR 88.93 92.90 BUN/Creatinine Ratio 20.7 H 17.6 Glucose 160 H 144 H Estimat Average Glucose 131 Hemoglobin A1c 6.2 H Calcium 9.8 9.1 Magnesium 1.8 Iron 32 L TIBC 290 Transferrin 207 Transferrin % Sat 11 L Ferritin 31.6 Urine Color Red Urine Appearance Turbid A Urine pH 6.5 Ur Specific P[place] >= 1.030 Urine Protein 3+ H Urine Glucose (UA) Trace H Urine Ketones Negative Urine Blood 3+ H Urine Nitrite Negative Urine Bilirubin 1+ H Urine Urobilinogen Negative Ur Leukocyte Esterase Negative Urine RBC >20 H Urine WBC 21-50 H Ur Epithelial Cells 0-2 Urine Bacteria 1+ H 08/10/25 16:06 Hgb 9.3 L Hct 29.4 L Microbiology 08/09/25 17:54 Urine,Clean Catch Urine Culture - Preliminary Staphylococcus epidermidis Diagnostic Findings Renal Ultrasound 08/10/25 08:56 Clinical history: Gross hematuria Technique: Renal sonography was performed Findings: The kidneys are of normal size and echogenicity. The right kidney measures 13.1 cm in length and the left kidney measures 13.3 cm in length. There is no hydronephrosis or visualized hydroureter. There is a 2.6 x 2.2 cm septated cyst in the right kidney. There is a 3.8 cm septated cyst in the left kidney. There are multiple smaller renal cysts bilaterally. There are multiple bilateral renal calculi, measuring up to 5 mm A Bocanegra catheter is present. There is heterogeneous debris within the bladder Impression: 1. Multiple bilateral renal cysts, the 2 largest of which are mildly complex. These are likely benign but indeterminate in nature. A follow-up renal protocol abdominal CT with and without contrast could be considered 2. Bilateral nonobstructing renal calculi 3. Debris within the bladder that could be due to either blood products or infection Electronically signed by Chad Pierre 08-10-2025 13:09 PM PG Care Time/CCT Total # of Minutes Spent Total Time Spent with Patient: Total time spent is greater than 50% in coordination of care (as documented) at patient's floor/unit and/or counseling patient: Coding Level of Care Code 13194 SUB INP/OBS CARE 3/50MIN Diagnoses Catheter-associated urinary tract infection T83.511A; N39.0 Acute urinary retention R33.8 Gross hematuria R31.0 Anticoagulated Z79.01 BPH (benign prostatic hyperplasia) N40.0 Acute blood loss anemia D62 Iron deficiency E61.1 History of prostate surgery Z98.890
--- NOTE | 2025-08-10 13:10 | Ultrasound Report ---
Clinical history: Gross hematuria Technique: Renal sonography was performed Findings: The kidneys are of normal size and echogenicity. The right kidney measures 13.1 cm in length and the left kidney measures 13.3 cm in length. There is no hydronephrosis or visualized hydroureter. There is a 2.6 x 2.2 cm septated cyst in the right kidney. There is a 3.8 cm septated cyst in the left kidney. There are multiple smaller renal cysts bilaterally. There are multiple bilateral renal calculi, measuring up to 5 mm A [place] catheter is present. There is heterogeneous debris within the bladder Impression: 1. Multiple bilateral renal cysts, the 2 largest of which are mildly complex. These are likely benign but indeterminate in nature. A follow-up renal protocol abdominal CT with and without contrast could be considered 2. Bilateral nonobstructing renal calculi 3. Debris within the bladder that could be due to either blood products or infection Electronically signed by Chad Pierre 08-10-2025 13:09 PM
[2025-08-10] MEDS: LACTATED RINGER'S 1,000 ML IV SCH (15:41)
[2025-08-10 16:29] LABS: Hematocrit (blood only) 29.4 % (42.0-52.0); Hemoglobin 9.3 g/dl (14.0-18.0)
[2025-08-10] MEDS: DAPTOmycin 700 MG in SYRINGE 0 ML IV SCH (20:25)
[2025-08-10] MEDS: cefTRIAXone SODIUM 2,000 MG/50 ML BAG IV SCH (21:37)
[2025-08-11 05:52] LABS: Hematocrit (blood only) 28.2 % (42.0-52.0); Hemoglobin 8.8 g/dl (14.0-18.0); Mean Corpuscular Hemoglobin 27.8 pg (25.0-34.0); Mean Corpuscular Volume 89.2 fL (80.0-100.0); Platelet Count 270 K/uL (130-400); RDW Standard Deviation 47.6 fL (36.4-46.3); Red Blood Count 3.16 M/uL (4.70-6.10); White Blood Count 8.02 K/ul (4.8-10.8)
[2025-08-11 06:06] LABS: Anion Gap 6.0 (3-11); Blood Urea Nitrogen 14.0 mg/dl (6-23); Calcium 9.2 mg/dl (8.6-10.3); Carbon Dioxide 23.0 mmol/L (21-32); Chloride 110.0 mmol/L (98-107); Creatinine Clr Calc Pharmacy 89.8 ml/min; Glucose 130.0 mg/dl (70-99(Fasting)); Potassium 3.7 mmol/L (3.5-5.1); Sodium 139.0 mmol/L (136-145)
--- NOTE | 2025-08-11 10:38 | Urology Progress Note ---
Date of Service August 11, 2025 Assessment & Plan (1) History of prostate surgery: (2) BPH (benign prostatic hyperplasia): (3) Gross hematuria: Plan Afebrile hd stable 70M doing ok despite hematuria and urinary retention requiring catheter replacement ~ 1 month after HOLEP procedure. Urine clearing up now catheter draining well patient adamant wants trial of void understands risk of requiring catheter replacement. Please obtain bladder scan after able to void. If PVR > 300 cc or patient feels not voiding well please replace catheter and maintain pending outpatient followup. If unable to void please replace catheter. - continue holding anticoagulation today if urine as clear as it is today please restart eliquis 1x daily timorrow if still not worsening can resume full dose eliquis 08/12 from standpoint - renal bladder US reviewed no large bladder clot - start bowel regimen - continue flomax as outpatient - if urine remains reassuring no further inpatient needs anticipated - please call with questions Admission and Anticipated Discharge Date Admission Date: August 09, 2025 Subjective doing well overnight, urine much clearer, in general comfortable except catheter bother Physical Exam Physical Exam: Gen: NAD Psych: Alert and Oriented Abd: Nontender nondistended : catheter in place light pink urine in tube Results & Data Vital Signs (Past 12 Hours) Vital Signs Temp Pulse Resp BP Pulse Ox O2 Del Method 08/11/25 07:42 37.1 C 63 18 137/66 96 CPAP 08/11/25 05:00 132/71 08/11/25 03:58 37.2 C 62 18 181/82 H 98 Room Air 08/10/25 23:13 35.9 C L 63 16 161/78 H 96 CPAP PG Care Time/CCT Total # of Minutes Spent Total Time Spent with Patient: Total time spent is greater than 50% in coordination of care (as documented) at patient's floor/unit and/or counseling patient: Coding Level of Care Code 47368 SUB INP/OBS CARE 2/35MIN Diagnoses History of prostate surgery Z98.890 BPH (benign prostatic hyperplasia) N40.0 Gross hematuria R31.0
[2025-08-11 11:12] VITALS: BP 155/82; PULSE 57; RESP 16; TEMP 98.1; O2SAT 98
[2025-08-11] MEDS: IRON SUCROSE 300 MG in SODIUM CHLORIDE 0.9% 250 ML IV ONE (15:20)
[2025-08-11] MEDS ORDERED: Nursing to Pharmacy Communication SCH (15:45)
--- NOTE | 2025-08-11 18:10 | Discharge Summary ---
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 Presented with gross hematuria and urinary retention. By report had urinary retention in the ER at presentation thus bocanegra catheter placed. u/a suggestive of UTI and thus IV daptomycin given while in ER. #catheter-associated UTI - -patient had a bocanegra during his hospital admission in mid-July at [facility] when he had his HoLEP procedure -would consider this a complicated UTI given the procedure he had had and the bocanegra usage at that time -urine cx grew staph epidermidis -received 3 doses of IV daptomycin while here, then transitioned to PO Zyvox at discharge -chose Zyvox as it has good prostate penetration (wanted to cover for prostatitis in case he had prostate involvement) -patient was asked to HOLD sertraline while finishing his Zyvox course -in total he will take 14 days of IV/PO antibiotics for his staph epi UTI #acute urinary retention with gross hematuria - -s/p bocanegra placement in ER at time of presentation -renal u/s obtained on hospital day #2 - no large clot seen -Eliquis was held during the hospitalization, with last dose on 08/09/25 AM -[facility] urology was consulted -gross hematuria was thought to be either 2nd to UTI vs bleeding from the prostate vs combination of factors -was initiated on flomax 0.4mg daily to increase chances of successful bocanegra discontinuation -hematuria gradually resolved by time of discharge -he never required continuous bladder irrigation or cystoscopy -patient was counseled that if his urine remained clear upon discharge home he could resume his Eliquis the PM of 08/12/25 -bocanegra was discontinued at his request on 08/11, and fortunately he was able to spontaneously void with PVRs <200ml -Creatinine was stable the entire stay (<1 while here) #acute blood loss anemia (ABLA) and iron def anemia - -ABLA 2nd to gross hematuria -hemoglobin day of admission was 10.2, falling to 8.8 on day of discharge -Fe studies c/w Fe deficiency; ferritin 31, transferrin saturation only 11% -received 1 dose of IV venofer while here -recommended a repeat CBC within 5 days of discharge to ensure stability -he may need additional IV venofer infusions as outpatient #BPH - -s/p HoLEP procedure at [facility] 07/2025 -initiated flomax 0.4mg daily during this hospitalization to help facilitate discontinuation of bocanegra catheter #h/o TAVR 02/2025 - -echo this summer 2024 with mild perivalvular leak but otherwise good function and normal EF #h/o PAF - -held Eliquis due to significant gross hematuria & anemia -he is not on AV dayan agents at baseline #h/o CAD - -no ischemic sx's while hospitalized -cont irbesartan, cont imdur, cont zetia, cont lipitor #pre-DM - -Hba1c 6.2% c/w pre-DM -outpatient f/u recommended -he had Hba1c of 6.2% in 2021 thus he has had pre-DM for several years #Hyperlipidemia - -Continue Zetia -Continue atorvastatin #Depression - -recently started sertraline 25 mg daily about 3 days prior to admission -he will need to hold the sertraline while on Zyvox for staph epi UTI #complex renal cysts - -on renal u/s he has b/l cysts both of which appear complex -of note - on 02/2025 CT abd/pelvis the radiologist commented on the following -- "Small calcified left renal lesion, indeterminate in nature but likely a benign complex cyst. A follow-up renal protocol CT with and without contrast could be obtained in 3-6 months." -thus, consider repeat CT scan - renal protocol - in the next 1-2 months Notes For Next Care Provider repeat CBC within 5 days of discharge for stability CT renal protocol (w/ and w/o contrast) to follow b/l renal cysts (complex) Medication Changes From Visit 1. Zyvox 600mg BID x 12 days 2. hold sertraline while on Zyvox 3. flomax 0.4mg daily Admission HPI Per Admitting Provider The patient is a 70-year-old male with a past medical history including hyperlipidemia, hypertension, CAD, hypokalemia, status post TAVR 02/28/2025, atrial fibrillation, on chronic anticoagulation with Eliquis. The patient presents to the emergency department with complaint of bloody drainage of urine into his pants and underwear, with decreased urine output over the last 24 hours. The patient has a history of a urologic procedure performed at [facility] 07/16, had a Bocanegra catheter placed during that hospitalization, but was discontinued prior to discharge. He had been having no issues with urination until yesterday, when he began to have decreased output, and then today noted blood in his urine with blood on his underwear and pants. He is on Eliquis, and last dosing that was taken was the morning of 08/09. He denies any fevers or chills. He did have a positive urinalysis on 05/17/2025 for multidrug- resistant Staph epidermidis. Urinalysis in the emergency department suggestive of infection, and he was started on daptomycin 675 mg IV from the ED, which will be continued, and we added ceftriaxone 2 g IV daily. He did have a Bocanegra catheter placed in the ED due to urinary retention, and was given 1 L normal saline bolus. The Bocanegra catheter is draining grossly hematuric blood. Discharge Exam gen - NAD, lying comfortably in bed, looks well today neck - no JVD mouth - MMM heart - RRR, s1 s2, 1/6 systolic murmur LSB lungs - CTA b/l abd - soft NT ND BS+; no bladder pain to palpation ext - no edema, pulses 2+ b/l skin - mild pallor Discharge Plan Discharge Items Patient Disposition: Home - Self-Care Reason For Visit: GROSS HEMATURIA, URINARY RETENTION Discharge Diagnosis: 1. gross hematuria (blood in the urine) - much improved 2. urinary retention - likely due to #1 and urinary tract infection - improved, bocanegra catheter has been removed 3. staph urinary tract infection 4. acute blood loss anemia - due to hematuria; discharge hemoglobin 8.8 5. iron deficiency 6. history of TAVR 7. recent prostate surgery 07/2025 - [facility] 8. pre-diabetes - hemoglobin a1c 6.2% (at least dating back to 2021 you have been pre-diabetic) 9. history of atrial fibrillation Activity: As commented below Activity Comment: gradually increase activities over the next 5-7 days Lifting: Wait until after follow-up appointment Sexual Activity: Wait until after follow-up appointment Exercise/Sports: Wait until after follow-up appointment Non-emergency contact: Primary Care Provider and Urologist Call non-emergency contact if: you have any medication questions, your symptoms worsen and you have a fever Follow-up/Referrals: Sarwat Ramirez MD [Primary Care Provider] - (see Dr Ramirez THIS WEEK before departing for [place] ) Anuel Monroe MD [Physician] - (if you are having any urological/bladder troubles after getting home you can call our local urology office for an appointment ) Elliott Springer MD [Outside Practitioners] - (please keep any previously scheduled appointment with Dr Springer - [facility]) Diet: Carb Consistent or DM2 Addtl Attending Provider Instructions: Mr Nuno, You were hospitalized due to having blood in your urine (hematuria), difficulty voiding, and urinary tract infection. You needed a catheter to drain the bladder for most of your stay. IV antibiotics were used to treat the urinary infection. Urine culture grew a form of staph. [facility] saw you in consultation. They recommended conservative measures including holding your Eliquis, maintaining the catheter for a few days, and antibiotics for the infection. Fortunately the hematuria resolved. Your catheter was removed on 08/11. You have been voiding spontaneously since the bocanegra was taken out. Bladder scans since removal of the bocanegra have been acceptable. Due to loss of blood you are iron deficient. We gave you 1 run of IV iron while here. Recommendations - 1. antibiotics - -linezolid 600mg twice daily x 12 days, first dose TOMORROW NIGHT -side effects - -diarrhea -rarely/seldomly linezolid can affect your CBC blood counts -again please HOLD the recently prescribed sertraline until you have completed the linezolid course 2. for prostate/urinary flow take - -tamsulosin 0.4mg each morning -most common side effect - -dizziness/lightheadedness 3. HOLD your Eliquis today and tomorrow morning. If no blood in the urine you may resume your Eliquis TOMORROW NIGHT. On Tuesday, if you still have normal appearing urine, you can resume the Eliquis as per usual at 5mg twice daily. 4. HOLD your sertraline until the linezolid course is complete. 5. as we discussed continue doing "timed voids" where you urinate about every 3 hours to ensure you are emptying your bladder as best as possible. Consider doing "double voids" as well. 6. have Dr Ramirez repeat your CBC blood counts later this week. It is possible you may need another run or two of IV iron in the future. Return to [facility] if - -you have fevers over 100 degrees -you have significant dizziness or lightheadedness -you have recurrent bleeding in the urine -you have inability to urinate -you develop severe diarrhea (3 or more liquid stools in 24 hours) -any other concerns It was our pleasure to care for you! -Henrique Lyman Pending Studies at Discharge: No Stand-Alone Forms: My [facility], Smoking Cessation Medications and DC Order Prescriptions: New linezolid [Zyvox] 600 mg tablet 600 mg PO BID Qty: 24 0RF tamsulosin 0.4 mg Capsule 0.4 mg PO QAM Qty: 30 2RF Continued irbesartan 300 mg tablet 300 mg PO DAILY Qty: 90 3RF potassium chloride 20 mEq tablet extended release 20 meq PO DAILY Qty: 90 3RF isosorbide mononitrate 60 mg tablet extended release 24 hr 60 mg PO DAILY Qty: 90 3RF spironolactone 50 mg tablet 50 mg PO DAILY Qty: 90 3RF atorvastatin 80 mg tablet 80 mg PO DAILY multivitamin Tablet 1 tab PO DAILY ezetimibe 10 mg tablet 10 mg PO DAILY nitroglycerin 0.4 mg tablet, sublingual 0.4 mg SL DIRECTED PRN (Reason: Chest Pain) Held Eliquis 5 mg tablet 5 mg PO BID Hold Instructions: hold until 08/12/25 in the evening. sertraline 25 mg Tablet 25 mg PO DAILY Hold Instructions: do NOT take until you have completed the linezolid antibiotic course. Discontinued ciprofloxacin HCl [Cipro] 500 mg tablet 500 mg PO Q12H Qty: 20 0RF Discharge Orders: Discharge Order (Routine); Ordered 08/11/25 Ordered By: Henrique Wesley/Other Patient Handouts: A1C, Prediabetes, 5 Steps for Eating Healthier, What is Hematuria? Admission Data Admit Date/Time: 08/09/25 20:43 Attending Provider: Henrique Lyman Admit Provider: Deni Stevenson Primary Care Provider: Sarwat Ramirez Other Providers: Anuel Monroe Other Interventions: Discharge Summary Assessment (RN) Last Done: 08/11/25 17:56 Hospital Stay Data Consultations 08/09/25 23:13 [facility] Urology Diagnostic Imagining Performed Renal Ultrasound 08/10/25 08:56 Clinical history: Gross hematuria Technique: Renal sonography was performed Findings: The kidneys are of normal size and echogenicity. The right kidney measures 13.1 cm in length and the left kidney measures 13.3 cm in length. There is no hydronephrosis or visualized hydroureter. There is a 2.6 x 2.2 cm septated cyst in the right kidney. There is a 3.8 cm septated cyst in the left kidney. There are multiple smaller renal cysts bilaterally. There are multiple bilateral renal calculi, measuring up to 5 mm A Bocanegra catheter is present. There is heterogeneous debris within the bladder Impression: 1. Multiple bilateral renal cysts, the 2 largest of which are mildly complex. These are likely benign but indeterminate in nature. A follow-up renal protocol abdominal CT with and without contrast could be considered 2. Bilateral nonobstructing renal calculi 3. Debris within the bladder that could be due to either blood products or infection Electronically signed by Chad Pierre 08-10-2025 13:09 PM Pending Results Patient Have Any Pending Studies at Discharge: No Discharge Instructions Given to Patient (Per Discharging Provider) Mr Nuno, You were hospitalized due to having blood in your urine (hematuria), difficulty voiding, and urinary tract infection. You needed a catheter to drain the bladder for most of your stay. IV antibiotics were used to treat the urinary infection. Urine culture grew a form of staph. [facility] saw you in consultation. They recommended conservative measures including holding your Eliquis, maintaining the catheter for a few days, and antibiotics for the infection. Fortunately the hematuria resolved. Your catheter was removed on 08/11. You have been voiding spontaneously since the bocanegra was taken out. Bladder scans since removal of the bocanegra have been acceptable. Due to loss of blood you are iron deficient. We gave you 1 run of IV iron while here. Recommendations - 1. antibiotics - -linezolid 600mg twice daily x 12 days, first dose TOMORROW NIGHT -side effects - -diarrhea -rarely/seldomly linezolid can affect your CBC blood counts -again please HOLD the recently prescribed sertraline until you have completed the linezolid course 2. for prostate/urinary flow take - -tamsulosin 0.4mg each morning -most common side effect - -dizziness/lightheadedness 3. HOLD your Eliquis today and tomorrow morning. If no blood in the urine you may resume your Eliquis TOMORROW NIGHT. On Tuesday, if you still have normal appearing urine, you can resume the Eliquis as per usual at 5mg twice daily. 4. HOLD your sertraline until the linezolid course is complete. 5. as we discussed continue doing "timed voids" where you urinate about every 3 hours to ensure you are emptying your bladder as best as possible. Consider doing "double voids" as well. 6. have Dr Ramirez repeat your CBC blood counts later this week. It is possible you may need another run or two of IV iron in the future. Return to [facility] if - -you have fevers over 100 degrees -you have significant dizziness or lightheadedness -you have recurrent bleeding in the urine -you have inability to urinate -you develop severe diarrhea (3 or more liquid stools in 24 hours) -any other concerns It was our pleasure to care for you! -Henrique Lyman Total Time Total Time Spent Total Time Spent (In Minutes): 45 Total Time Includes: Examination of the Patient, Discharge Planning, Medication Reconciliation and Communication With Other Providers Coding Level of Care Code 55078 INP/OBS DISCH >30 MIN Diagnoses Catheter-associated urinary tract infection T83.511A; N39.0 Acute urinary retention R33.8 Gross hematuria R31.0 Anticoagulated Z79.01 BPH (benign prostatic hyperplasia) N40.0 Acute blood loss anemia D62 Iron deficiency E61.1 History of prostate surgery Z98.890 Complex renal cyst N28.1
== END 2025-08-11 18:28 | disposition home or self-care (01) | DRG 699 ==
LOC: ED 16:39 → 4W 20:43 → SUATTDRO 20:43 → INTOOBSV 20:43 → 4W 23:15
DX: I50.32 Chronic diastolic (congestive) heart failure; Y73.2 Prosthetic and other implants, materials and accessory gastroenterology and urology devices associated with adverse incidents; T83.511A Infection and inflammatory reaction due to indwelling urethral catheter, initial encounter; Z88.6 Allergy status to analgesic agent; Z79.01 Long term (current) use of anticoagulants; N40.1 Benign prostatic hyperplasia with lower urinary tract symptoms; D62 Acute posthemorrhagic anemia; Z98.890 Other specified postprocedural states; E78.5 Hyperlipidemia, unspecified; Z95.2 Presence of prosthetic heart valve; F32.A Depression, unspecified; K59.00 Constipation, unspecified; R31.0 Gross hematuria; R73.03 Prediabetes; I25.10 Atherosclerotic heart disease of native coronary artery without angina pectoris; I11.0 Hypertensive heart disease with heart failure; Z79.899 Other long term (current) drug therapy; I48.91 Unspecified atrial fibrillation

== ENCOUNTER 2025-09-02 20:47 | Observation (INO) ==
[2025-09-02 21:31] LABS: Hematocrit (blood only) 28.8 % (42.0-52.0); Hemoglobin 9.0 g/dl (14.0-18.0); Immature Granulocytes # (auto) 0.01 K/uL (0.01-0.20); Immature Granulocytes % (auto) 0.1 %; Mean Corpuscular Hemoglobin 28.5 pg (25.0-34.0); Mean Corpuscular Volume 91.1 fL (80.0-100.0); Platelet Count 383 K/uL (130-400); RDW Standard Deviation 60.2 fL (36.4-46.3); Red Blood Count 3.16 M/uL (4.70-6.10); White Blood Count 6.92 K/ul (4.8-10.8)
--- NOTE | 2025-09-02 21:37 | Emergency Department Note ---
History of Present Illness General Chief complaint: Shortness of Breath/Dyspnea Stated complaint: SOB, WAS CHOKING, POSS HEART-RELATED Time Seen by Provider: 09/02/25 21:22 History of Present Illness This is a 70-year-old male presenting to the emergency department for evaluation of progressive shortness of breath over the course of today. Patient states that he was at work seated in chair when symptoms began. He has dyspnea walking. The patient has been seen in this ER several times recently and was found to be anemic. He recently started iron supplementation. Patient has not had fevers or chills. No lightheadedness, dizziness, chest pain, abdominal pain, nausea, or vomiting. Taken anything [id number] for symptoms, and symptoms seem to improve when he sits and rests. No recent travel history. Home Medications Medication Instructions Recorded Confirmed Type atorvastatin 80 mg tablet 80 mg PO DAILY 08/21/19 09/02/25 History irbesartan 300 mg tablet 300 mg PO DAILY #90 tabs 05/29/24 09/02/25 Rx potassium chloride 20 mEq 20 meq PO DAILY #90 tabs 05/29/24 09/02/25 Rx tablet,extended release isosorbide mononitrate 60 mg 60 mg PO DAILY #90 tabs 02/21/25 09/02/25 Rx tablet,extended release 24 hr ezetimibe 10 mg tablet 10 mg PO DAILY 03/05/25 09/02/25 History multivitamin 1 tab PO DAILY 03/05/25 09/02/25 History nitroglycerin 0.4 mg sublingual 0.4 mg sublingual DIRECTED PRN 03/05/25 09/02/25 History tablet Chest Pain apixaban 5 mg tablet (Eliquis) 5 mg PO BID 05/17/25 09/02/25 History spironolactone 50 mg tablet 50 mg PO DAILY #90 tabs 05/30/25 09/02/25 Rx linezolid 600 mg tablet (Zyvox) 600 mg PO BID #24 tabs 08/11/25 09/02/25 Rx sertraline 25 mg tablet 25 mg PO DAILY 08/11/25 09/02/25 History tamsulosin 0.4 mg capsule 0.4 mg PO QAM #30 caps 08/11/25 09/02/25 Rx ferrous sulfate 325 mg (65 mg 325 mg PO Q OTHER DAY #14 tabs 08/28/25 09/02/25 Rx iron) tablet Allergies Allergy/AdvReac Type Severity Reaction Status Date / Time acetaminophen Allergy Intermediate HIVES A Verified 09/02/25 22:49 CHILD Past Med/Surg History Problem List (Updated 09/03/25 @ 04:35 by Hector Veras PA-C) Hypertensive urgency (Acute) CHF (congestive heart failure) (Acute) Elevated troponin (Acute) Elevated troponin Aspiration into airway Acute respiratory failure with hypoxia (Acute) Bilateral interstitial pneumonia On apixaban therapy (Acute) Hx of hematuria (Acute) Low iron (Acute) Anemia (Acute) Complex renal cyst History of prostate surgery Catheter-associated urinary tract infection Iron deficiency Acute blood loss anemia BPH (benign prostatic hyperplasia) Enlarged prostate Gross hematuria Anemia (Acute) Anticoagulated (Acute) Leukocytosis (Acute) Junctional rhythm Medical History Acute UTI Acute urinary retention Sinus bradycardia Hypercalcemia Obstructive sleep apnea HTN (hypertension) Chronic diastolic congestive heart failure CAD, multiple vessel Medically managed. 2017 cath: borderline occlusive ostial RCA, distal Cx, mid LAD Depression Bacteremia Syncope Sepsis Severe sepsis Transaminitis Elevated procalcitonin Fever MILY (acute kidney injury) Elevated lactic acid level Elevated troponin AMS (altered mental status) Severe aortic stenosis Acute diastolic (congestive) heart failure (2011) Basal ganglia hemorrhage (2009) Left thalamic infarction (2004) Carotid occlusion, left (2004) Multiple pulmonary nodules (2013) Bicipital tendinitis, left shoulder (2015) Central retinal vein occlusion (2015) LVH (left ventricular hypertrophy) Surgical History S/P TAVR (transcatheter aortic valve replacement) Family History Father Hypertension Social History Smoking Status: Never smoker Second Hand Exposure: No; Do You Dip or Chew Tobacco: No; Hx Alcohol Use: Yes Alcohol type: wine Hx Substance Use: No Preferred Language: Serbian Communication Ability: Effective Type Copy Examiner Required: No Beliefs That Will Affect Care: None Current Living Situation: Spouse Current Living Situation Comment: with Feels Safe at Home: Yes Assistive Devices: CPAP and Walker Review of Systems A total of 10 systems reviewed and were otherwise negative Physical Exam Vital Signs Vital Signs - 24 hr 09/02/25 20:51 09/02/25 21:39 09/02/25 21:41 Temperature 36.5 C Temperature Source Temporal Artery Scan Pulse Rate 94 H 96 H Pulse Rate [Apical] Respiratory Rate 18 Respiratory Effort / Characteristics Non-Labored Spontaneous Respiratory Depth Normal Respiratory Pattern Regular Blood Pressure 206/108 H Blood Pressure [Left Arm] Blood Pressure Mean 140 Blood Pressure Mean [Left Arm] Pulse Oximetry 90 83 L Oxygen Delivery Method Room Air Nasal Cannula Oxygen Flow Rate 0 Sepsis Recent Fever Within 48 Hours No Sepsis New/Unexplained Change in Mental Status N/A Sepsis Action Taken by Nursing No Action Required Oxygen Flow Rate - Titration 5 Pulse Oximetry Post Tiitration 96 09/02/25 22:42 09/02/25 22:50 09/02/25 23:00 Temperature Temperature Source Pulse Rate 82 Pulse Rate [Apical] 62 86 Respiratory Rate 27 H 24 Respiratory Effort / Characteristics Non-Labored Spontaneous Respiratory Depth Normal Respiratory Pattern Regular Blood Pressure 212/131 H Blood Pressure [Left Arm] 209/113 H 152/89 H Blood Pressure Mean Blood Pressure Mean [Left Arm] 145 110 Pulse Oximetry 94 92 Oxygen Delivery Method Nasal Cannula Nasal Cannula Oxygen Flow Rate 7 4 Sepsis Recent Fever Within 48 Hours Sepsis New/Unexplained Change in Mental Status Sepsis Action Taken by Nursing Oxygen Flow Rate - Titration Pulse Oximetry Post Tiitration 09/02/25 23:00 09/03/25 00:00 Temperature Temperature Source Pulse Rate 86 Pulse Rate [Apical] 73 Respiratory Rate 22 Respiratory Effort / Characteristics Non-Labored Spontaneous Respiratory Depth Normal Respiratory Pattern Regular Blood Pressure 152/89 H Blood Pressure [Left Arm] 133/63 Blood Pressure Mean Blood Pressure Mean [Left Arm] 86 Pulse Oximetry 96 Oxygen Delivery Method Nasal Cannula Oxygen Flow Rate 3 Sepsis Recent Fever Within 48 Hours Sepsis New/Unexplained Change in Mental Status Sepsis Action Taken by Nursing Oxygen Flow Rate - Titration Pulse Oximetry Post Tiitration VITALS: Vitals are noted on the nurse's note and reviewed by myself. Vital signs with elevated blood pressure GENERAL: White male who is with increased work of breathing HEAD: Normocephalic atraumatic. NECK: Supple without nuchal rigidity. No lymphadenopathy. No thyromegaly. Cervical spine is nontender. HEART: Regular rate and rhythm without murmurs gallops or rubs. LUNGS: Scattered wheezing throughout ABDOMEN: Positive normal bowel sounds x 4. Soft, nontender, without masses or organomegaly. No guarding or rebound tenderness. MUSCULOSKELETAL: No muscle atrophy, erythema, or edema noted. Full range of motion in all extremities. NEURO: Patient was alert and oriented to person place and time. CN II through XII grossly intact. Course Administered Medications Discontinued Medications Albuterol (Albut/Ipratrop 3mg/0.5mg Neb 3 Ml Vial) 12 ml NEB ONE ONE; Protocol Stop: 09/03/25 02:35 Last Admin: 09/03/25 02:46 Dose: 12 ml Documented By: ESTUARDO Furosemide (Furosemide 40 Mg/4 Ml Vial) 40 mg IV ONE ONE Stop: 09/02/25 22:35 Last Admin: 09/02/25 22:42 Dose: 40 mg Documented By: DYAN Piperacillin Sod/Tazobactam Sod (Zosyn) 4.5 gm in 100 mls @ 200 mls/hr IV NOW STA Stop: 09/03/25 00:37 Last Infusion: 09/03/25 00:44 Dose: Infused Documented By: Admin: 09/03/25 00:13 Dose: 200 mls/hr Documented By: DONNY Vancomycin HCl 2,250 mg/ (Sodium Chloride) 545 mls @ 200 mls/hr IV NOW ONE Stop: 09/03/25 02:51 Last Admin: 09/03/25 02:20 Dose: 200 mls/hr Documented By: LILLIAM Potassium Chloride (K Keo / Wtr) 10 meq in 100 mls @ 100 mls/hr IV ONE ONE Stop: 09/03/25 01:17 Last Infusion: 09/03/25 02:40 Dose: Infused Documented By: Admin: 09/03/25 01:11 Dose: 100 mls/hr Documented By: KATERIN Labetalol HCl (Labetalol Hcl Iv 5 Mg/Ml 20ml) 10 mg IV NOW STA Stop: 09/02/25 22:35 Last Admin: 09/02/25 22:42 Dose: 10 mg Documented By: DYAN Methylprednisolone (Methylprednisolone 125 Mg/2 Ml Vial) 125 mg IV NOW STA Stop: 09/03/25 02:38 Last Admin: 09/03/25 03:00 Dose: 125 mg Documented By: SALBADOR Medical Decision Making Differential Diagnosis Differential diagnosis includes, but is not limited to: Myocardial infarction, dysrhythmia, pericarditis, pneumothorax, aortic aneurysm/dissection, DVT/PE, anxiety, GERD, PUD, electrolyte imbalance, thyroid disorder, pneumonia, bronchitis, pancreatitis, and others Laboratory Data 09/02/25 21:17 09/02/25 21:17 Lab Results 09/02/25 09/02/25 09/02/25 Range/Units 21:17 21:35 22:55 WBC 6.92 (4.8-10.8) K/ul RBC 3.16 L (4.70-6.10) M/uL Hgb 9.0 L (14.0-18.0) g/dl Hct 28.8 L (42.0-52.0) % MCV 91.1 (80.0-100.0) fL MCH 28.5 (25.0-34.0) pg MCHC 31.3 L (32.0-36.0) g/dL RDW Std Deviation 60.2 H (36.4-46.3) fL RDW Coeff of Bret 19.5 H (11.5-14.5) % Plt Count 383 (130-400) K/uL MPV 10.5 (9.4-12.4) fL Immature Gran % (Auto) 0.1 % Neut % (Auto) 70.0 % Lymph % (Auto) 15.6 % [place] % (Auto) 9.2 % Eos % (Auto) 4.2 % Baso % (Auto) 0.9 % Neut # (Auto) 4.84 (1.40-6.50) K/uL Lymph # (Auto) 1.08 L (1.20-3.40) K/uL [place] # (Auto) 0.64 H (0.11-0.59) K/uL Eos # (Auto) 0.29 (0.00-0.50) K/uL Baso # (Auto) 0.06 (0.00-0.20) K/uL Immature Gran # (Auto) 0.01 (0.01-0.20) K/uL PT 11.7 (9.0-12.0) Seconds INR 1.1 (0.9-1.1) APTT 25 (21-31) Seconds PTT Ratio 0.9 VBG pH 7.41 (7.36-7.41) VBG pCO2 34 L (38-50) mmHg VBG pO2 48 mmHg VBG HCO3 22 mmol/L VBG O2 Saturation 74.4 % VBG Base Excess -2.4 mEq/L Sodium 139 (136-145) mmol/L Potassium 3.6 (3.5-5.1) mmol/L Chloride 107 (98-107) mmol/L Carbon Dioxide 21 (21-32) mmol/L Anion Gap 11 (3-11) BUN 16 (6-23) mg/dl Creatinine 0.96 (0.6-1.4) mg/dl Est Cr Clr Drug Dosing 86.3 ml/min eGFR 84.51 BUN/Creatinine Ratio 16.7 (10-20) Glucose 166 H (70-99(Fasting)) mg/dl Calcium 9.6 (8.6-10.3) mg/dl Magnesium 2.0 (1.7-2.4) mg/dl Total Bilirubin 1.8 H (0.2-1.0) mg/dl AST 71 H (13-39) U/L ALT 40 (7-52) U/L Alkaline Phosphatase 132 H (34-104) U/L Troponin I High Sens 76.4 H* 94.0 H* D (0-20) pg/ml B-Natriuretic Peptide 326 H (0-100) pg/ml Total Protein 7.4 (6.0-8.3) gm/dl Albumin 3.9 (3.4-5.0) gm/dl Globulin 3.5 (2.5-4.0) gm/dl Albumin/Globulin Ratio 1.1 (0.9-2) Procalcitonin 0.06 (0-0.5) ng/ml Adenovirus (PCR) Not Detected (NotDetected) B. pertussis DNA (PCR) Not Detected (NotDetected) B.parapertussis DNA PCR Not Detected (NotDetected) C. pneumoniae DNA (PCR) Not Detected (NotDetected) Coronavirus OC43 (PCR) Not Detected (NotDetected) Coronavirus HKU1 (PCR) Not Detected (NotDetected) Coronavirus 229E (PCR) Not Detected (NotDetected) SARS-CoV-2 (PCR) Not Detected (NotDetected) Coronavirus NL63 (PCR) Not Detected (NotDetected) Human Metapneumovir PCR Not Detected (NotDetected) Influenza Type A (PCR) Not Detected (NotDetected) Influenza Type B (PCR) Not Detected (NotDetected) M. pneumoniae (PCR) Not Detected (NotDetected) Parainfluenza 1 (PCR) Not Detected (NotDetected) Parainfluenza 2 (PCR) Not Detected (NotDetected) Parainfluenza 3 (PCR) Not Detected (NotDetected) Parainfluenza 4 (PCR) Not Detected (NotDetected) RSV (PCR) Not Detected (NotDetected) Entero/Rhino (PCR) Not Detected (NotDetected) Imaging Data Radiologist's Impression: Chest X-Ray 09/02/25 20:54 Exam(s): XR CXR 1 VIEW EXAM: XR Chest, 1 View CLINICAL HISTORY: Reason for exam: Chest pain, nonspecific. TECHNIQUE: Frontal view of the chest. COMPARISON: 03/22/2025. FINDINGS: Lungs: There are bilateral interstitial infiltrates.. Pleural space: No pleural effusion is seen. No pneumothorax. Heart: Heart is enlarged.. Mediastinum: There is uncoiling of thoracic aorta.. Bones/joints: There are degenerative changes in the spine.. IMPRESSION: There are bilateral interstitial infiltrates.. Electronically signed by: Berhane Anna MD 09/02/25 22:56 PM MDM Narrative Physical exam and history were performed. Nursing notes, EMR, and Medication List were personally reviewed. No social concerns were identified as barriers to patients care. History was provided by the Patient and family who are at bedside. Patient appears to have shortness of breath symptoms worsening throughout the course of today. Symptoms are worse with ambulation. Patient appears with work of breathing on evaluation. He is hypertensive and is 83% on room air when walking. Patient was placed on nasal cannula oxygen. IV access was established and labs were obtained. Case was discussed with my attending. An order was placed for continuous cardiac monitoring. The monitor shows a rate of 74 with normal sinus rhythm. Patient's blood work is as above and was reviewed. He does not have a significantly elevated white blood cell count. He is anemic at 9.0, however this is increased from previous. Transaminases are not diagnostic. Troponin is elevated at 76. His repeat also increased to 94. Previous baseline has been in the 60s. BNP is elevated over 300. Patient continued with an elevated blood pressure here in the ER. He was given IV labetalol and IV Lasix here in the ER. He typically does not use oxygen at home other than with his CPAP at night, however he is requiring oxygen as high as 6 L to maintain saturation greater than 90. His BioFire did return negative. Chest x-ray was independently reviewed by myself and radiology with bilateral interstitial infiltrates. Escalation of care was considered, and felt to be necessary. The case was discussed with the on-call hospitalist team, who agreed to evaluate the patient here in the ER. Please see their dictation for further patient course, plan, and disposition. The chart was completed utilizing [employer] Speech Voice Recognition Software. Grammatical errors, random word insertions, pronoun errors, and incomplete sentences are an occasional consequence of this system due to software limitations, ambient noise, and hardware issues. Any formal questions or concerns about the content, text, or information contained within the body of this dictation should be directly addressed to the provider for clarification. Impression & Plan Acute respiratory failure with hypoxia, Elevated troponin, CHF (congestive heart failure), Hypertensive urgency Discharge Plan Visit Data Chief Complaint: Shortness of Breath/Dyspnea Stated Complaint: SOB, WAS CHOKING, POSS HEART-RELATED ED Provider: Carmine Benoit ED Midlevel Provider: Hector Veras Discharge Problem: Acute respiratory failure with hypoxia, Elevated troponin, CHF (congestive heart failure), Hypertensive urgency Patient Disposition: Being Evaluated by Hospitalist Condition: Fair Discharge Instructions Interventions: ED Discharge Assessment Last Done: 09/03/25 01:25
[2025-09-02 21:45] LABS: Base Excess VBG -2.4 mEq/L; HCO3 VBG 22 mmol/L; Oxygen Saturation VBG 74.4 %; PCO2 VBG 34 mmHg (38-50); PO2 VBG 48 mmHg; pH VBG 7.41 (7.36-7.41)
[2025-09-02 22:00] LABS: INR 1.1 (0.9-1.1); Partial Thromboplastin Time 25 Seconds (21-31); Prothrombin Time 11.7 Seconds (9.0-12.0)
[2025-09-02 22:23] LABS: Potassium 3.6 mmol/L (3.5-5.1)
[2025-09-02 22:24] LABS: Alanine Aminotransferase 40.0 U/L (7-52); Albumin Globulin Ratio 1.1 (0.9-2); Albumin Level 3.9 gm/dl (3.4-5.0); Alkaline Phosphatase 132.0 U/L (34-104); Anion Gap 11.0 (3-11); Bilirubin,Total 1.8 mg/dl (0.2-1.0); Blood Urea Nitrogen 16.0 mg/dl (6-23); Calcium 9.6 mg/dl (8.6-10.3); Carbon Dioxide 21.0 mmol/L (21-32); Chloride 107.0 mmol/L (98-107); Creatinine Clr Calc Pharmacy 86.3 ml/min; Globulin 3.5 gm/dl (2.5-4.0); Glucose 166.0 mg/dl (70-99(Fasting)); Sodium 139.0 mmol/L (136-145); Total Protein 7.4 gm/dl (6.0-8.3)
[2025-09-02 22:33] LABS: Chlamydia pneumoniae PCR Not Detected (NotDetected); Coronavirus 229E PCR Not Detected (NotDetected); Coronavirus CoV-2 (COVID19)PCR Not Detected (NotDetected); Coronavirus HKU1 PCR Not Detected (NotDetected); Coronavirus NL63 PCR Not Detected (NotDetected); Coronavirus OC43PCR Not Detected (NotDetected); Human Metapneumovirus PCR Not Detected (NotDetected); Parainfluenza Virus 1 PCR Not Detected (NotDetected); Parainfluenza Virus 2 PCR Not Detected (NotDetected); Parainfluenza Virus 3 PCR Not Detected (NotDetected); Parainfluenza Virus 4 PCR Not Detected (NotDetected); Respiratory Syncytial VirusPCR Not Detected (NotDetected); Rhinovirus/Enterovirus PCR Not Detected (NotDetected)
[2025-09-02] MEDS: LABETALOL HCL IV 5 MG/ML 20ML IV STA (22:42)
[2025-09-02] MEDS: FUROSEMIDE 40 MG/4 ML VIAL IV ONE (22:42)
--- NOTE | 2025-09-02 22:57 | XRay Report ---
Exam(s): XR CXR 1 VIEW EXAM: XR Chest, 1 View CLINICAL HISTORY: Reason for exam: Chest pain, nonspecific. TECHNIQUE: Frontal view of the chest. COMPARISON: 03/22/2025. FINDINGS: Lungs: There are bilateral interstitial infiltrates.. Pleural space: No pleural effusion is seen. No pneumothorax. Heart: Heart is enlarged.. Mediastinum: There is uncoiling of thoracic aorta.. Bones/joints: There are degenerative changes in the spine.. IMPRESSION: There are bilateral interstitial infiltrates.. Electronically signed by: Berhane Anna MD 09/02/25 22:56 PM
[2025-09-03] MEDS ORDERED: ALBUT/IPRATROP 3MG/0.5MG NEB 3 ML VIAL NEB PRN (00:01)
[2025-09-03] MEDS ORDERED: VANCOMYCIN CONSULT ACTIVE PRN (00:08)
[2025-09-03] MEDS: PIPERACILLIN/TAZOBACTAM 4.5 GM/100 ML BAG IV STA (00:13)
--- NOTE | 2025-09-03 00:15 | History & Physical Report ---
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 He was most recently admitted to [facility] from 08/09-08/11/2025 with gross hematuria associated with above. He was also found to have MDR staph epi, and was placed on Zyvox 600 mg p.o. twice daily for 12 days and had the addition of tamsulosin. Family reports he had been doing well until the past few days, when he became more noticeably short of breath, with dyspnea on exertion, and had severe coughing to the point of turning blue in his face. He has been noticing more difficulty sleeping at night. He comes to the emergency department at the encouragement of his family. Workup in the emergency department included a chest x-ray with some mild CHF, but more significant bibasilar pneumonia, right greater than left. He was given furosemide 40 mg IV and labetalol 10 mg IV from the ED, then referred for evaluation for admission to the [facility] hospitalist service. Acute respiratory failure with hypoxia/bibasilar interstitial pneumonia/aspiration with cough- Patient received furosemide 40 mg IV and labetalol 10 mg IV from the ED, and 1 on the repeated. Methylprednisolone 125 mg IV, then 40 mg IV every 8 hours Vancomycin IV per pharmacokinetic monitoring Zosyn 4.5 g IV every 8 hours DuoNebs every 2 hours as needed Aspiration precautions-consult speech therapy. Upon questioning, patient's family does report that he coughs frequently when eating. Oxygen supplementation titration goal was 92-94% History of MDR staph epi, having completed a 12-day course of Zyvox 600 mg p.o. twice daily today and discharged with on 08/11/2025 Respiratory BioFire test negative Serial CBC with differential, chemistry profile, magnesium Elevated troponin/atrial fibrillation/hypertension/CAD/CHF- Received one-time dose of furosemide 40 mg IV in ED, labetalol 10 mg IV from the ED Troponin initially 76.4 with follow-up 94.0, similar to previous admissions. The patient will be admitted to telemetry for serial cardiac enzymes, serial EKG's, cardiac rhythm monitoring. Likely supply/demand mismatch Continue Eliquis, irbesartan, isosorbide mononitrate extended release, spironolactone Obstructive sleep apnea- Patient will use his own BiPAP at bedtime BPH/bladder outlet obstruction- Status post HoLEP procedure Continue tamsulosin Hyperlipidemia- Continue atorvastatin and Zetia Anemia- Hemoglobin 9.0 point admission, improved from last admission of 8.3. Patient had had significant gross hematuria associated with being on Eliquis and having prostate procedure performed. History of Present Illness Chief Complaint: The patient presents to the emergency department, at the encouragement of his family, due to worsening shortness of breath, dyspnea on exertion, intermittent cough that turns him blue in the face. 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 He was most recently admitted to [facility] from 08/09-08/11/2025 with gross hematuria associated with above. He was also found to have MDR staph epi, and was placed on Zyvox 600 mg p.o. twice daily for 12 days and had the addition of tamsulosin. Family reports he had been doing well until the past few days, when he became more noticeably short of breath, with dyspnea on exertion, and had severe coughing to the point of turning blue in his face. He has been noticing more difficulty sleeping at night. He comes to the emergency department at the encouragement of his family. Workup in the emergency department included a chest x-ray with some mild CHF, but more significant bibasilar pneumonia, right greater than left. He was given furosemide 40 mg IV and labetalol 10 mg IV from the ED, then referred for evaluation for admission to the [facility] hospitalist service. Allergies Allergy/AdvReac Type Severity Reaction Status Date / Time acetaminophen Allergy Intermediate HIVES A Verified 09/02/25 22:49 CHILD Home Medications Medication Instructions Recorded Confirmed Type atorvastatin 80 mg tablet 80 mg PO DAILY 08/21/19 09/02/25 History irbesartan 300 mg tablet 300 mg PO DAILY #90 tabs 05/29/24 09/02/25 Rx potassium chloride 20 mEq 20 meq PO DAILY #90 tabs 05/29/24 09/02/25 Rx tablet,extended release isosorbide mononitrate 60 mg 60 mg PO DAILY #90 tabs 02/21/25 09/02/25 Rx tablet,extended release 24 hr ezetimibe 10 mg tablet 10 mg PO DAILY 03/05/25 09/02/25 History multivitamin 1 tab PO DAILY 03/05/25 09/02/25 History nitroglycerin 0.4 mg sublingual 0.4 mg sublingual DIRECTED PRN 03/05/25 09/02/25 History tablet Chest Pain apixaban 5 mg tablet (Eliquis) 5 mg PO BID 05/17/25 09/02/25 History spironolactone 50 mg tablet 50 mg PO DAILY #90 tabs 05/30/25 09/02/25 Rx linezolid 600 mg tablet (Zyvox) 600 mg PO BID #24 tabs 08/11/25 09/02/25 Rx sertraline 25 mg tablet 25 mg PO DAILY 08/11/25 09/02/25 History tamsulosin 0.4 mg capsule 0.4 mg PO QAM #30 caps 08/11/25 09/02/25 Rx ferrous sulfate 325 mg (65 mg 325 mg PO Q OTHER DAY #14 tabs 08/28/25 09/02/25 Rx iron) tablet Past Med/Surg History Problem List (Updated 09/03/25 @ 04:09 by Deni Stevenson MD) Elevated troponin Aspiration into airway Acute respiratory failure with hypoxia Bilateral interstitial pneumonia On apixaban therapy (Acute) Hx of hematuria (Acute) Low iron (Acute) Anemia (Acute) Complex renal cyst History of prostate surgery Catheter-associated urinary tract infection Iron deficiency Acute blood loss anemia BPH (benign prostatic hyperplasia) Enlarged prostate Gross hematuria Anemia (Acute) Anticoagulated (Acute) Leukocytosis (Acute) Junctional rhythm Medical History Acute UTI Acute urinary retention Sinus bradycardia Hypercalcemia Obstructive sleep apnea HTN (hypertension) Chronic diastolic congestive heart failure CAD, multiple vessel Medically managed. 2017 cath: borderline occlusive ostial RCA, distal Cx, mid LAD Depression Bacteremia Syncope Sepsis Severe sepsis Transaminitis Elevated procalcitonin Fever MILY (acute kidney injury) Elevated lactic acid level Elevated troponin AMS (altered mental status) Severe aortic stenosis Acute diastolic (congestive) heart failure (2011) Basal ganglia hemorrhage (2009) Left thalamic infarction (2004) Carotid occlusion, left (2004) Multiple pulmonary nodules (2013) Bicipital tendinitis, left shoulder (2016) Central retinal vein occlusion (2016) LVH (left ventricular hypertrophy) Surgical History S/P TAVR (transcatheter aortic valve replacement) Family History Father Hypertension Social History Smoking Status: Never smoker Second Hand Exposure: No; Do You Dip or Chew Tobacco: No; Hx Alcohol Use: Yes Alcohol type: wine Hx Substance Use: No Preferred Language: Indonesian Communication Ability: Effective Learning Support Aide Required: No Beliefs That Will Affect Care: None Current Living Situation: Spouse Current Living Situation Comment: with Feels Safe at Home: Yes Assistive Devices: CPAP and Walker Review of Systems Review of Systems: The patient denies chest pain, palpitations, lower extremity swelling, sore throat, fevers, chills, nausea, vomiting, diarrhea , constipation, abdominal pain, pelvic pain, blood in urine or stool, dysuria, urinary frequency or urgency, lightheadedness, dizziness, headache, memory loss, loss of consciousness, rash, abnormal bruising or bleeding, focal weakness, numbness or tingling in arms or legs, generalized arthralgias or myalgias, back or neck pain, or night sweats. The review of systems is otherwise negative other than for that already noted above, and at least 10 systems have been reviewed. Physical Exam Physical Exam: The patient is awake, alert and oriented 3, well developed and well nourished, normocephalic and atraumatic, lying in bed and in no acute distress. HEENT--PERRL, EOMI, mucous membranes and oropharynx normal Neck--supple. No JVD. No bruits. Thyroid normal, trachea midline, no adenopathy. Heart--normal S1 and S2. No murmurs, rubs or gallops. Lungs--coarse breath sounds to bases right greater than left. Wheezes bilaterally. No respiratory distress, no accessory muscle use. Abdomen--normal bowel sounds and soft. Nontender. Mildly distended and tympanitic. Extremities--No edema. Dermatologic--normal skin turgor, normal color, no abnormal lymph nodes, no rash. Neurologic--cranial nerves II through XII grossly intact. Rheumatologic--normal range of motion. Psychiatric--normal affect. Results & Data Results & Data Vital Signs (Past 12 Hours) Vital Signs Temp Pulse Pulse Resp BP BP Pulse Ox 09/02/25 23:00 86 152/89 H 09/02/25 23:00 86 24 152/89 H 92 09/02/25 22:50 62 27 H 209/113 H 94 09/02/25 22:42 82 212/131 H 09/02/25 21:41 96 H 09/02/25 21:39 83 L 09/02/25 20:51 36.5 C 94 H 18 206/108 H 90 O2 Del Method O2 Flow Rate 09/02/25 23:00 09/02/25 23:00 Nasal Cannula 4 09/02/25 22:50 Nasal Cannula 7 09/02/25 22:42 09/02/25 21:41 09/02/25 21:39 Nasal Cannula 0 09/02/25 20:51 Room Air Laboratory Results Laboratory Results WBC 6.92 K/ul (4.8-10.8) 09/02/25 21:17 RBC 3.16 M/uL (4.70-6.10) L 09/02/25 21:17 Hgb 9.0 g/dl (14.0-18.0) L 09/02/25 21:17 Hct 28.8 % (42.0-52.0) L 09/02/25 21:17 MCV 91.1 fL (80.0-100.0) 09/02/25 21:17 MCH 28.5 pg (25.0-34.0) 09/02/25 21:17 MCHC 31.3 g/dL (32.0-36.0) L 09/02/25 21:17 RDW Std Deviation 60.2 fL (36.4-46.3) H 09/02/25 21:17 RDW Coeff of Bret 19.5 % (11.5-14.5) H 09/02/25 21:17 Plt Count 383 K/uL (130-400) 09/02/25 21:17 MPV 10.5 fL (9.4-12.4) 09/02/25 21:17 Immature Gran % (Auto) 0.1 % 09/02/25 21:17 Neut % (Auto) 70.0 % 09/02/25 21:17 Lymph % (Auto) 15.6 % 09/02/25 21:17 [place] % (Auto) 9.2 % 09/02/25 21:17 Eos % (Auto) 4.2 % 09/02/25 21:17 Baso % (Auto) 0.9 % 09/02/25 21:17 Neut # (Auto) 4.84 K/uL (1.40-6.50) 09/02/25 21:17 Lymph # (Auto) 1.08 K/uL (1.20-3.40) L 09/02/25 21:17 [place] # (Auto) 0.64 K/uL (0.11-0.59) H 09/02/25 21:17 Eos # (Auto) 0.29 K/uL (0.00-0.50) 09/02/25 21:17 Baso # (Auto) 0.06 K/uL (0.00-0.20) 09/02/25 21:17 Immature Gran # (Auto) 0.01 K/uL (0.01-0.20) 09/02/25 21:17 PT 11.7 Seconds (9.0-12.0) 09/02/25 21:17 INR 1.1 (0.9-1.1) 09/02/25 21:17 APTT 25 Seconds (21-31) 09/02/25 21:17 PTT Ratio 0.9 09/02/25 21:17 VBG pH 7.41 (7.36-7.41) 09/02/25 21:35 VBG pCO2 34 mmHg (38-50) L 09/02/25 21:35 VBG pO2 48 mmHg 09/02/25 21:35 VBG HCO3 22 mmol/L 09/02/25 21:35 VBG O2 Saturation 74.4 % 09/02/25 21:35 VBG Base Excess -2.4 mEq/L 09/02/25 21:35 Sodium 139 mmol/L (136-145) 09/02/25 21:17 Potassium 3.6 mmol/L (3.5-5.1) 09/02/25 21:17 Chloride 107 mmol/L (98-107) 09/02/25 21:17 Carbon Dioxide 21 mmol/L (21-32) 09/02/25 21:17 Anion Gap 11 (3-11) 09/02/25 21:17 BUN 16 mg/dl (6-23) 09/02/25 21:17 Creatinine 0.96 mg/dl (0.6-1.4) 09/02/25 21:17 Est Cr Clr Drug Dosing 86.3 ml/min 09/02/25 21:17 eGFR 84.51 09/02/25 21:17 BUN/Creatinine Ratio 16.7 (10-20) 09/02/25 21:17 Glucose 166 mg/dl (70-99(Fasting)) H 09/02/25 21:17 Calcium 9.6 mg/dl (8.6-10.3) 09/02/25 21:17 Magnesium 2.0 mg/dl (1.7-2.4) 09/02/25 22:55 Total Bilirubin 1.8 mg/dl (0.2-1.0) H 09/02/25 21:17 AST 71 U/L (13-39) H 09/02/25 21:17 ALT 40 U/L (7-52) 09/02/25 21:17 Alkaline Phosphatase 132 U/L (34-104) H 09/02/25 21:17 Troponin I High Sens 94.0 pg/ml (0-20) H* D 09/02/25 22:55 B-Natriuretic Peptide 326 pg/ml (0-100) H 09/02/25 21:17 Total Protein 7.4 gm/dl (6.0-8.3) 09/02/25 21:17 Albumin 3.9 gm/dl (3.4-5.0) 09/02/25 21:17 Globulin 3.5 gm/dl (2.5-4.0) 09/02/25 21:17 Albumin/Globulin Ratio 1.1 (0.9-2) 09/02/25 21:17 Procalcitonin 0.06 ng/ml (0-0.5) 09/02/25 21:17 Nasal Screen MRSA (PCR) Negative (Negative) 09/03/25 00:15 Adenovirus (PCR) Not Detected (NotDetected) 09/02/25 21:35 B. pertussis DNA (PCR) Not Detected (NotDetected) 09/02/25 21:35 B.parapertussis DNA PCR Not Detected (NotDetected) 09/02/25 21:35 C. pneumoniae DNA (PCR) Not Detected (NotDetected) 09/02/25 21:35 Coronavirus OC43 (PCR) Not Detected (NotDetected) 09/02/25 21:35 Coronavirus HKU1 (PCR) Not Detected (NotDetected) 09/02/25 21:35 Coronavirus 229E (PCR) Not Detected (NotDetected) 09/02/25 21:35 SARS-CoV-2 (PCR) Not Detected (NotDetected) 09/02/25 21:35 Coronavirus NL63 (PCR) Not Detected (NotDetected) 09/02/25 21:35 Human Metapneumovir PCR Not Detected (NotDetected) 09/02/25 21:35 Influenza Type A (PCR) Not Detected (NotDetected) 09/02/25 21:35 Influenza Type B (PCR) Not Detected (NotDetected) 09/02/25 21:35 M. pneumoniae (PCR) Not Detected (NotDetected) 09/02/25 21:35 Parainfluenza 1 (PCR) Not Detected (NotDetected) 09/02/25 21:35 Parainfluenza 2 (PCR) Not Detected (NotDetected) 09/02/25 21:35 Parainfluenza 3 (PCR) Not Detected (NotDetected) 09/02/25 21:35 Parainfluenza 4 (PCR) Not Detected (NotDetected) 09/02/25 21:35 RSV (PCR) Not Detected (NotDetected) 09/02/25 21:35 Entero/Rhino (PCR) Not Detected (NotDetected) 09/02/25 21:35 Impressions Chest X-Ray 09/02/25 20:54 Exam(s): XR CXR 1 VIEW EXAM: XR Chest, 1 View CLINICAL HISTORY: Reason for exam: Chest pain, nonspecific. TECHNIQUE: Frontal view of the chest. COMPARISON: 03/22/2025. FINDINGS: Lungs: There are bilateral interstitial infiltrates.. Pleural space: No pleural effusion is seen. No pneumothorax. Heart: Heart is enlarged.. Mediastinum: There is uncoiling of thoracic aorta.. Bones/joints: There are degenerative changes in the spine.. IMPRESSION: There are bilateral interstitial infiltrates.. Electronically signed by: Berhane Anna MD 09/02/25 22:56 PM Code Status & VTE Plan Code Status Full code VTE Prophylaxis Plan VTE Prophylaxis will be ordered: Yes PG Care Time/CCT Total # of Minutes Spent Total Time Spent with Patient: Total time spent is greater than 50% in coordination of care (as documented) at patient's floor/unit and/or counseling patient: Coding Level of Care Code 96461 INT INP/OBS CARE 3/75MIN Diagnoses Bilateral interstitial pneumonia J84.9 Acute respiratory failure with hypoxia J96.01 Aspiration into airway T17.908A Elevated troponin R79.89
[2025-09-03 00:59] LABS: Magnesium 2.0 mg/dl (1.7-2.4)
[2025-09-03] MEDS: POTASSIUM CHLORIDE / WTR 10 MEQ/100 ML PLCT IV ONE (01:11)
[2025-09-03] MEDS ORDERED: DEXTROSE 50% 50 ML SYRINGE IV PRN (01:24)
[2025-09-03] MEDS ORDERED: CARBOHYDRATES FOR HYPOGLYCEMIA PO PRN (01:24)
[2025-09-03] MEDS ORDERED: GLUCAGON FOR INJ 1 MG VIAL SQ PRN (01:24)
[2025-09-03] MEDS ORDERED: GLUCOSE 40% GEL 15 GM TUBE PO PRN (01:24)
[2025-09-03] MEDS ORDERED: GLUCOSE 10 TAB/TUBE PO PRN (01:24)
[2025-09-03] MEDS ORDERED: NITROGLYCERIN SL 0.4 MG/TAB TAB SL PRN (01:24)
[2025-09-03] MEDS: VANCOMYCIN HCL 2,250 MG in SODIUM CHLORIDE 0.9% 500 ML IV ONE (02:20)
[2025-09-03] MEDS: ALBUT/IPRATROP 3MG/0.5MG NEB 3 ML VIAL NEB ONE (02:46)
[2025-09-03 04:54] LABS: Hematocrit (blood only) 29.3 % (42.0-52.0); Hemoglobin 9.2 g/dl (14.0-18.0); Immature Granulocytes # (auto) 0.05 K/uL (0.01-0.20); Immature Granulocytes % (auto) 0.5 %; Mean Corpuscular Hemoglobin 28.8 pg (25.0-34.0); Mean Corpuscular Volume 91.8 fL (80.0-100.0); Platelet Count 420 K/uL (130-400); RDW Standard Deviation 61.5 fL (36.4-46.3); Red Blood Count 3.19 M/uL (4.70-6.10); White Blood Count 10.42 K/ul (4.8-10.8)
[2025-09-03 05:09] LABS: Alanine Aminotransferase 34.0 U/L (7-52); Albumin Globulin Ratio 1.3 (0.9-2); Albumin Level 4.1 gm/dl (3.4-5.0); Alkaline Phosphatase 118.0 U/L (34-104); Anion Gap 11.0 (3-11); Bilirubin,Total 2.1 mg/dl (0.2-1.0); Blood Urea Nitrogen 12.0 mg/dl (6-23); Calcium 9.2 mg/dl (8.6-10.3); Carbon Dioxide 22.0 mmol/L (21-32); Chloride 108.0 mmol/L (98-107); Creatinine Clr Calc Pharmacy 83.7 ml/min; Globulin 3.1 gm/dl (2.5-4.0); Glucose 189.0 mg/dl (70-99(Fasting)); Potassium 3.3 mmol/L (3.5-5.1); Sodium 141.0 mmol/L (136-145); Total Protein 7.2 gm/dl (6.0-8.3)
[2025-09-03] MEDS ORDERED: Nursing to Pharmacy Communication STA (05:32)
[2025-09-03] MEDS: SODIUM CHLORIDE 0.9% 250 ML IV ONE (06:13)
[2025-09-03] MEDS: POTASSIUM CHLORIDE / WTR 10 MEQ/100 ML PLCT IV SCH (06:13)
[2025-09-03] MEDS: DIGOXIN 250 MCG in SYRINGE 9 ML IV STA (07:12)
[2025-09-03] MEDS: PIPERACILLIN/TAZOBACTAM 4.5 GM/100 ML BAG IV SCH (08:25)
[2025-09-03] MEDS: EZETIMIBE 10 MG TAB PO SCH (09:54)
[2025-09-03] MEDS: APIXABAN 5 MG TABLET PO SCH (09:54)
[2025-09-03] MEDS: ATORVASTATIN 40 MG TAB PO SCH (09:54)
[2025-09-03] MEDS: SERTRALINE HCL 50 MG TABLET PO SCH (09:55)
[2025-09-03] MEDS: MULTIVITAMIN TAB PO SCH (09:55)
[2025-09-03] MEDS: TAMSULOSIN HCL 0.4 MG CAP PO SCH (09:55)
[2025-09-03] MEDS: LOSARTAN POTASSIUM 50 MG TAB PO SCH (09:55)
[2025-09-03] MEDS: POTASSIUM CHLORIDE CRTAB 20 MEQ TABCR PO SCH (09:55)
[2025-09-03] MEDS: ISOSORBIDE MONO EXTENDED REL 60 MG TABCR PO SCH (09:55)
[2025-09-03] MEDS: SPIRONOLACTONE 25 MG TAB PO SCH (09:56)
--- NOTE | 2025-09-03 10:54 | Hospitalist Progress Note ---
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 He was most recently admitted to [facility] from 08/09-08/11/2025 with gross hematuria associated with above. He was also found to have MDR staph epi, and was placed on Zyvox 600 mg p.o. twice daily for 12 days and had the addition of tamsulosin. Family reports he had been doing well until the past few days, when he became more noticeably short of breath, with dyspnea on exertion, and had severe coughing to the point of turning blue in his face. He has been noticing more difficulty sleeping at night. He comes to the emergency department at the encouragement of his family. Workup in the emergency department included a chest x-ray with some mild CHF, but more significant bibasilar pneumonia, right greater than left. He was given furosemide 40 mg IV and labetalol 10 mg IV from the ED, then referred for evaluation for admission to the [facility] hospitalist service. #Acute respiratory failure with hypoxia/bibasilar interstitial pneumonia/aspiration with cough- Patient received furosemide 40 mg IV and labetalol 10 mg IV from the ED, and 1 on the repeated. Methylprednisolone 125 mg IV, then 40 mg IV every 8 hours Vancomycin IV per pharmacokinetic monitoring Zosyn 4.5 g IV every 8 hours DuoNebs every 2 hours as needed Aspiration precautions-consult speech therapy. Upon questioning, patient's family does report that he coughs frequently when eating.Plan to schedule VFSS. Oxygen supplementation titration goal was 92-94% History of MDR staph epi, having completed a 12-day course of Zyvox 600 mg p.o. twice daily today and discharged with on 08/11/2025 Respiratory BioFire test negative Serial CBC with differential, chemistry profile, magnesium #Elevated troponin/atrial fibrillation/hypertension/CAD/CHF- Received one-time dose of furosemide 40 mg IV in ED, labetalol 10 mg IV from the ED Troponin initially 76.4->100.7 similar to previous admissions. The patient will be admitted to telemetry for serial cardiac enzymes, serial EKG's, cardiac rhythm monitoring. Likely supply/demand mismatch Continue Eliquis, irbesartan, isosorbide mononitrate extended release, spironolactone #Obstructive sleep apnea- Patient uses his own BiPAP at bedtime #BPH/bladder outlet obstruction- Status post HoLEP procedure Continue tamsulosin #Hyperlipidemia- Continue atorvastatin and Zetia Anemia- Hemoglobin 9.0 point admission, improved from last admission of 8.3. Patient had had significant gross hematuria associated with being on Eliquis and having prostate procedure performed. Admission and Anticipated Discharge Date Admission Date: September 03, 2025 Supervising Physician Co-Signing Physician Notes I personally examined the patient and verified all evans points of history and exam, discussed case, and agree with decision making with Dr Castorena Feeling better overall. Still on oxygen. Vitals noted, in general he is awake and alert pleasant no distress. HEENT normocephalic atraumatic mucous membranes moist. Lungs are nondescriptdiminished bibasilar no clear rales rhonchi or wheezes, but fairly quiet throughout. Mental status appears to be intact at this point, but it sounds like there has been some waxing and waning at times. Dyspnea/hypoxiaunclear how much of this is purely pulmonary edema versus how much is pneumonia, there is some evidence for both. Right now being treated for both, but obviously would like to streamline and focus treatment and prevention to what is actually going onCT chest ordered to evaluate his lung parenchyma in better detail. Some degree of waxing and waning confusionfamily notes PCP had ordered brain imaging to rule out strokebut because of the outpatient world this was not going to be able to be done until at the end of the monthMRI brain ordered. Deconditioning/failure to thrivehe had been doing well, but since his TAVR, he has now had multiple readmissions and a bit of a downward spiral. Discussed strategies to get built back up and regain his overall functional status. Anticoagulated otherwise as above Subjective Patient was lying on bed sleeping on Bipap. Reports feeling better with shortness of breath than yesterday, but mentions having difficulty sleeping which has been going on recently. No chest pain, palpitations, fever. Review of Systems Review of Systems: As per HPI. Physical Exam Physical Exam: The patient is awake, alert and oriented 3, well developed and well nourished, normocephalic and atraumatic, lying in bed and in no acute distress. HEENT--PERRL, EOMI, mucous membranes and oropharynx normal Neck--supple. No JVD. No bruits. Thyroid normal, trachea midline, no adenopathy. Heart--normal S1 and S2. No murmurs, rubs or gallops. Lungs--coarse breath sounds to bases right greater than left. Wheezes bilaterally. No respiratory distress, no accessory muscle use. Abdomen--normal bowel sounds and soft. Nontender. Mildly distended and tympanitic. Extremities--No edema. Dermatologic--normal skin turgor, normal color, no abnormal lymph nodes, no rash. Neurologic--cranial nerves II through XII grossly intact. Rheumatologic--normal range of motion. Psychiatric--normal affect. Results & Data Results & Data Vital Signs (Past 12 Hours) Vital Signs Pulse Pulse Resp BP BP Pulse Ox O2 Del Method 09/03/25 10:43 Nasal Cannula 09/03/25 09:46 93 Nasal Cannula 09/03/25 09:45 88 L Room Air 09/03/25 09:38 95 H 21 127/70 94 Room Air 09/03/25 08:49 82 09/03/25 07:12 94 H 09/03/25 07:11 95 H 31 H 128/74 96 CPAP 09/03/25 06:44 95 H 24 116/68 96 BiPAP 09/03/25 06:03 143 H 24 116/68 93 09/03/25 05:00 138 H 23 119/87 93 09/03/25 04:27 143 H 22 94 09/03/25 04:12 124 H 24 91 09/03/25 04:03 73 24 166/81 H 91 09/03/25 03:00 74 31 H 161/97 H 97 Oxymask, Nebulizer 09/03/25 02:46 74 33 H 95 Oxymask 09/03/25 01:33 79 09/03/25 01:06 78 18 180/115 H 92 Nasal Cannula 09/03/25 00:00 73 22 133/63 96 Nasal Cannula 09/02/25 23:00 86 152/89 H 09/02/25 23:00 86 24 152/89 H 92 Nasal Cannula O2 Flow Rate 09/03/25 10:43 2 09/03/25 09:46 2 09/03/25 09:45 09/03/25 09:38 09/03/25 08:49 09/03/25 07:12 09/03/25 07:11 09/03/25 06:44 09/03/25 06:03 09/03/25 05:00 09/03/25 04:27 09/03/25 04:12 09/03/25 04:03 09/03/25 03:00 7 09/03/25 02:46 4 09/03/25 01:33 09/03/25 01:06 3 09/03/25 00:00 3 09/02/25 23:00 09/02/25 23:00 4
--- NOTE | 2025-09-03 12:02 | Electrocardiogram Report ---
Test Reason : Blood Pressure : */* mmHG Vent. Rate : 101 BPM Atrial Rate : 101 BPM P-R Int : 146 ms QRS Dur : 98 ms QT Int : 388 ms P-R-T Axes : 53 23 110 degrees QTcB Int : 503 ms Sinus tachycardia with occasional Premature ventricular complexes Nonspecific ST and T wave abnormality Abnormal ECG When compared with ECG of 28-Aug-2025 14:56, Premature ventricular complexes are now Present Premature atrial complexes are no longer Present Confirmed by Saul Collins ([id number]) on 09/03/2025 12:02:28 PM Referred By: REFERRED SELF Confirmed By: Saul Collins
--- NOTE | 2025-09-03 19:55 | Billing Data ---
Date of Service September 03, 2025 Coding Level of Care Code 54438 SUB INP/OBS CARE
--- NOTE | 2025-09-03 20:09 | CT Scan Report ---
CT of the chest without contrast Technique: Noncontrast axial images of the chest. Coronal and sagittal reformatted images made available for review Comparison made to prior exam dated March 22, 2025 Findings: Interval development of bilateral pleural effusions right slightly greater than left with compressive atelectasis in both lower lobes. Postoperative changes aortic valve repair. Coronary artery calcification. Mild pericardial effusion. Subtle bullous emphysematous change right upper lobe 5 mm right upper lobe subpleural pulmonary nodule stable since prior exam. Bone windows demonstrate no focal abnormality Impression New large bilateral pleural effusions right greater than left with compressive atelectasis 5 mm right upper lobe subpleural pulmonary nodule. Recommend 6-month follow-up to assess for continued stability over time. Electronically signed by Zain Clark 09-03-2025 8:08 PM
[2025-09-04 07:12] LABS: Hematocrit (blood only) 28.4 % (42.0-52.0); Hemoglobin 8.5 g/dl (14.0-18.0); Mean Corpuscular Hemoglobin 28.3 pg (25.0-34.0); Mean Corpuscular Volume 94.7 fL (80.0-100.0); Platelet Count 438 K/uL (130-400); RDW Standard Deviation 65.6 fL (36.4-46.3); Red Blood Count 3.00 M/uL (4.70-6.10); White Blood Count 12.81 K/ul (4.8-10.8)
[2025-09-04 07:32] LABS: Acanthocytes 1+; Anisocytosis Present; Immature Granulocytes # (auto) 0.07 K/uL (0.01-0.20); Immature Granulocytes % (auto) 0.5 %; Polychromasia 2+
[2025-09-04 07:41] LABS: Partial Thromboplastin Time 25 Seconds (21-31)
[2025-09-04 07:49] LABS: Alanine Aminotransferase 26.0 U/L (7-52); Albumin Globulin Ratio 1.3 (0.9-2); Albumin Level 3.7 gm/dl (3.4-5.0); Alkaline Phosphatase 91.0 U/L (34-104); Anion Gap 6.0 (3-11); Bilirubin,Total 1.3 mg/dl (0.2-1.0); Blood Urea Nitrogen 19.0 mg/dl (6-23); Calcium 9.8 mg/dl (8.6-10.3); Carbon Dioxide 23.0 mmol/L (21-32); Chloride 111.0 mmol/L (98-107); Creatinine Clr Calc Pharmacy 74.8 ml/min; Globulin 2.8 gm/dl (2.5-4.0); Glucose 194.0 mg/dl (70-99(Fasting)); Magnesium 2.1 mg/dl (1.7-2.4); Potassium 4.1 mmol/L (3.5-5.1); Sodium 140.0 mmol/L (136-145); Total Protein 6.5 gm/dl (6.0-8.3)
[2025-09-04] MEDS: FUROSEMIDE 40 MG/4 ML VIAL IV ONE (08:36)
[2025-09-04] MEDS: FERROUS SULFATE 325 MG TAB PO SCH (08:37)
--- NOTE | 2025-09-04 10:34 | Magnetic Resonance Report ---
MR brain wo con HISTORY: 70 years-old Male confusion, ?CVA acutely altered mental status with strokelike symptoms COMPARISON: Head CT 03/22/2025, brain MRI 03/06/2010. TECHNIQUE: Multiplanar multisequence MRI of the brain was obtained without IV contrast FINDINGS: Motion degraded exam. No restricted diffusion identified to suggest an acute or subacute infarct. Mid line structures are within normal limits with degenerative changes of the cervical spine. Blooming ar tifact related to hemosiderin noted within the right greater than left basal ganglia with additional subcentimeter scattered foci noted within the bilateral cerebral hemispheres and right cerebellum. A right thalamic hemorrhage was noted on the 2009 study. Involutional changes with moderate to extensiv e T2/FLAIR hyperintense foci throughout the white matter, progressed from prior. Probable small chron ic infarcts within the frontal lobes and basal ganglia. No acute intracranial hemorrhage, midline shift, abnormal extra-axial collection, hydrocephalus or in tra-axial mass. Cerebral venous sinuses and major arterial flow voids appear patent. Moderate bilater al mastoid effusions. Polypoid mucosal thickening of the right maxillary sinus. Skull, orbits and sof t tissues are unremarkable. IMPRESSION: 1. No acute intracranial abnormality. No acute infarct. 2. Involutional changes with moderate to extensive chronic microvascular ischemic disease, progressed from the 2010 comparison. 3. Hemosiderin within the right thalamus/basal ganglia related to chronic hemorrhage. Additional scat tered mostly subcentimeter foci of hemosiderin throughout the cerebrum and cerebellum suggestive of c hronic microhemorrhages. Amyloidosis is a differential consideration. ACT 112: Negative or not required by law. The above report was generated using voice recognition software. It may contain grammatical, syntax o r spelling errors. Electronically signed by: Richard Merida M.D. 09/04/2025 10:33 AM
--- NOTE | 2025-09-04 11:14 | Fluoroscopy Report ---
FL video swallow CLINICAL HISTORY: r/o aspiration. TECHNIQUE: Video fluoroscopic evaluation of swallowing was performed in the AP and lateral projection s by the speech pathology staff. The patient is fed nectar-thick and thin liquid barium, a barium coa kenny wafer, and barium pudding. FLUOROSCOPY TIME: 1 minute 16 seconds. COMPARISON: None FINDINGS: There was penetration with thin liquid. There was trace aspiration when drinking with straw . No other aspiration seen. IMPRESSION: Trace aspiration when drinking with straw. ACT 112: Negative or not required by law. Electronically signed by: Freedom Ferreira M.D. 09/04/2025 11:13 AM
--- NOTE | 2025-09-04 12:03 | Hospitalist Progress Note ---
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 He was most recently admitted to [facility] from 08/09-08/11/2025 with gross hematuria associated with above. He was also found to have MDR staph epi, and was placed on Zyvox 600 mg p.o. twice daily for 12 days and had the addition of tamsulosin. Family reports he had been doing well until the past few days, when he became more noticeably short of breath, with dyspnea on exertion, and had severe coughing to the point of turning blue in his face. He has been noticing more difficulty sleeping at night. #Acute respiratory failure with hypoxia/bibasilar interstitial pneumonia/aspiration with cough- chest x-ray with some mild CHF, but more significant bibasilar pneumonia, right greater than left. Patient received furosemide 40 mg IV and labetalol 10 mg IV from the ED, and 1 on the repeated. Discontinued Methylprednisolone Discontinued Vancomycin IV and Zosyn DuoNebs every 2 hours as needed VFSS shows trace aspiration with straw. Oxygen supplementation titration goal was 92-94% Respiratory BioFire test negative CT chest shows bilateral pleural effusion.Lasix 40mg additional dose given today. Serial CBC with differential, chemistry profile, magnesium #Elevated troponin/atrial fibrillation/hypertension/CAD/CHF- Received one-time dose of furosemide 40 mg IV in ED, labetalol 10 mg IV from the ED Troponin initially 76.4->100.7 similar to previous admissions. Telemetry shows sinus rhythm to 80's with some PVC. Continue Eliquis, irbesartan, isosorbide mononitrate extended release, spironolactone #Obstructive sleep apnea- Patient uses his own BiPAP at bedtime #BPH/bladder outlet obstruction- Status post HoLEP procedure Continue tamsulosin #Hyperlipidemia- Continue atorvastatin and Zetia Anemia- Hemoglobin 9.0 -> 8.5 Patient had had significant gross hematuria associated with being on Eliquis and having prostate procedure performed. Admission and Anticipated Discharge Date Admission Date: September 03, 2025 Supervising Physician Co-Signing Physician Notes I personally examined the patient and verified all evans points of history and exam, discussed case, and agree with decision making with Dr Castorena continues to feel better. Walking around okay. Extensive discussions with patient and family. Vitals noted, in general he is awake and alert pleasant no distress. HEENT normocephalic atraumatic mucous membranes moist. Walks the length of the unit briskly and steadily on room air with no dyspnea. 96% on room air after. Dyspnea/hypoxia Appears to have been entirely acute on chronic HFpEF/acute on chronic diastolic CHFprobably from accidental but excess sodium intake with his diet recently, combined with his recent frailty from frequent admissions/different organ system decompensations/and a mild but burgeoning failure to thrive picture. Now on room air. Pleural effusions do not seem to be causing him much symptomsno overt need for thoracentesis at this time. Continue to follow. Some degree of waxing and waning confusionfamily notes PCP had ordered brain imaging to rule out strokebut because of the outpatient world this was not going to be able to be done until at the end of the monthMRI brain Without acute findings. Explained chronic findings. Deconditioning/failure to thrivehe had been doing well, but since his TAVR, he has now had multiple readmissions and a bit of a downward spiral. Discussed strategies to get built back up and regain his overall functional status. Hematuriaseems to be persisting since urologic procedure. No hemorrhage or evidence of acute blood loss anemia (suspect the anemia right now is much more anemia of chronic disease) and nothing that seems to be fitting with urinary obstruction from clotting. Can hold DOAC for a few days to try to hasten resolution of hematuria. They would like local urology follow-up, we will try to facilitate this. otherwise as above Subjective Patient on NC on 2l today. Reports feeling better with shortness of breath than yesterday, but mentions having difficulty sleeping which has been going on recently. No chest pain, palpitations, fever. Review of Systems Review of Systems: As per HPI. Physical Exam Physical Exam: The patient is awake, alert and oriented 3, well developed and well nourished, normocephalic and atraumatic, lying in bed and in no acute distress. HEENT--PERRL, EOMI, mucous membranes and oropharynx normal Neck--supple. No JVD. No bruits. Thyroid normal, trachea midline, no adenopathy. Heart--normal S1 and S2. No murmurs, rubs or gallops. Lungs--coarse breath sounds to bases right greater than left. Wheezes bilaterally. No respiratory distress, no accessory muscle use. Abdomen--normal bowel sounds and soft. Nontender. Mildly distended and tympanitic. Extremities--No edema. Dermatologic--normal skin turgor, normal color, no abnormal lymph nodes, no rash. Neurologic--cranial nerves II through XII grossly intact. Rheumatologic--normal range of motion. Psychiatric--normal affect. Results & Data Results & Data Vital Signs (Past 12 Hours) Vital Signs Temp Pulse Pulse Resp BP Pulse Ox O2 Del Method 09/04/25 11:34 36.9 C 72 18 144/91 H 97 Nasal Cannula 09/04/25 09:00 Room Air 09/04/25 07:00 73 09/04/25 03:14 36.8 C 70 22 145/90 H 95 Nasal Cannula, CPAP O2 Flow Rate 09/04/25 11:34 2 09/04/25 09:00 09/04/25 07:00 09/04/25 03:14 Resident Activity Tracking Resident Involvement: Resident Care Provided Care Provided: Adult Hospital Medicine
[2025-09-04 16:46] VITALS: O2SAT 95
--- NOTE | 2025-09-04 17:35 | Billing Data ---
Date of Service September 04, 2025 Coding Level of Care Code 61211 SUB INP/OBS CARE
--- NOTE | 2025-09-04 17:37 | Billing Data ---
Date of Service September 04, 2025 Coding Level of Care Code 26488 SUB INP/OBS CARE
[2025-09-05 06:02] LABS: Hematocrit (blood only) 30.2 % (42.0-52.0); Hemoglobin 9.3 g/dl (14.0-18.0); Immature Granulocytes # (auto) 0.06 K/uL (0.01-0.20); Immature Granulocytes % (auto) 0.5 %; Mean Corpuscular Hemoglobin 28.9 pg (25.0-34.0); Mean Corpuscular Volume 93.8 fL (80.0-100.0); Platelet Count 460 K/uL (130-400); RDW Standard Deviation 67.9 fL (36.4-46.3); Red Blood Count 3.22 M/uL (4.70-6.10); White Blood Count 12.85 K/ul (4.8-10.8)
[2025-09-05 06:18] LABS: Alanine Aminotransferase 26.0 U/L (7-52); Albumin Globulin Ratio 1.4 (0.9-2); Albumin Level 3.7 gm/dl (3.4-5.0); Alkaline Phosphatase 95.0 U/L (34-104); Anion Gap 7.0 (3-11); Bilirubin,Total 1.4 mg/dl (0.2-1.0); Blood Urea Nitrogen 21.0 mg/dl (6-23); Calcium 9.6 mg/dl (8.6-10.3); Carbon Dioxide 26.0 mmol/L (21-32); Chloride 108.0 mmol/L (98-107); Creatinine Clr Calc Pharmacy 76.2 ml/min; Globulin 2.7 gm/dl (2.5-4.0); Glucose 129.0 mg/dl (70-99(Fasting)); Magnesium 2.0 mg/dl (1.7-2.4); Potassium 3.8 mmol/L (3.5-5.1); Sodium 141.0 mmol/L (136-145); Total Protein 6.4 gm/dl (6.0-8.3)
[2025-09-05 06:29] LABS: Partial Thromboplastin Time 24 Seconds (21-31)
[2025-09-05 06:30] LABS: Anisocytosis Present; Polychromasia 1+
[2025-09-05 08:01] VITALS: BP 159/84; PULSE 74; RESP 18; TEMP 97.7
[2025-09-05] MEDS: POLYETHYLENE (MIRALAX) 17 GM PACK PO SCH (09:04)
[2025-09-05 11:19] LABS: Appearance Urine Clear (Clear); Bacteria Urine Automated None Seen (None Seen); Cast Urine Automated 0-2 /lpf (0-2); Epithelial Cell Urine Auto 0-2 /hpf (0-2); Glucose Urine UA Negative (Negative); WBC Urine Automated 0-5 /hpf (0-5)
--- NOTE | 2025-09-05 11:44 | XCELERA ---
[id number]\[id number]
[2025-09-05] MEDS: INFLUENZA VACC TS2025-26(65y+)/PF (IIV3) 0.5mL Syr IM ONE (14:44)
--- NOTE | 2025-09-05 16:39 | Discharge Summary ---
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 He was most recently admitted to [facility] from 08/09-08/11/2025 with gross hematuria associated with above. He was also found to have MDR staph epi, and was placed on Zyvox 600 mg p.o. twice daily for 12 days and had the addition of tamsulosin. Family reports he had been doing well until the past few days, when he became more not iceably short of breath, with dyspnea on exertion, and had severe coughing to the point of turning blue in his face. He has been noticing more difficulty sleeping at night. He comes to the emergency department at the encouragement of his family. Workup in the emergency department included a chest x-ray with some mild CHF, but more significant bibasilar pneumonia, right greater than left. He was given furosemide 40 mg IV and labetalol 10 mg IV from the ED, then referred for evaluation for admission to the [facility] hospitalist service. Admission Exam Per Admitting Provider The patient is awake, alert and oriented 3, well developed and well nourished, normocephalic and atraumatic, lying in bed and in no acute distress. HEENT--PERRL, EOMI, mucous membranes and oropharynx normal Neck--supple. No JVD. No bruits. Thyroid normal, trachea midline, no adenopathy. Heart--normal S1 and S2. No murmurs, rubs or gallops. Lungs--coarse breath sounds to bases right greater than left. Wheezes bilaterally. No respiratory distress, no accessory muscle use. Abdomen--normal bowel sounds and soft. Nontender. Mildly distended and tympanitic. Extremities--No edema. Dermatologic--normal skin turgor, normal color, no abnormal lymph nodes, no rash. Neurologic--cranial nerves II through XII grossly intact. Rheumatologic--normal range of motion. Psychiatric--normal affect. Principal Diagnosis Pulmonary Discharge Exam The patient is awake, alert and oriented 3, well developed and well nourished, normocephalic and atraumatic, lying in bed and in no acute distress. HEENT--PERRL, EOMI, mucous membranes and oropharynx normal Neck--supple. No JVD. No bruits. Thyroid normal, trachea midline, no adenopathy. Heart--normal S1 and S2. No murmurs, rubs or gallops. Lungs--coarse breath sounds to bases right greater than left. Wheezes bilaterally. No respiratory distress, no accessory muscle use. Abdomen--normal bowel sounds and soft. Nontender. Mildly distended and tympanitic. Extremities--No edema. Dermatologic--normal skin turgor, normal color, no abnormal lymph nodes, no rash. Neurologic--cranial nerves II through XII grossly intact. Rheumatologic--normal range of motion. Psychiatric--normal affect. Discharge Data Allergies Allergy/AdvReac Type Severity Reaction Status Date / Time acetaminophen Allergy Intermediate HIVES A Verified 09/02/25 22:49 CHILD Consultations 09/02/25 22:40 ED Decision to Admit Stat Ordered Studies 09/03/25 15:43 CT chest diagnostic wo con Routine 09/03/25 17:47 MRI Brain [MR brain wo con] Routine 09/04/25 10:30 FL video swallow Routine Hospital Course (1) Bilateral interstitial pneumonia: (2) Acute respiratory failure with hypoxia: (3) Aspiration into airway: (4) Elevated troponin: Plan The patient is a 70-year-old male with a past medical history including catheter associated urinary tract infection, acute urinary retention, gross hematuria status HoLEP prostate surgery on 07/16/2025 at [facility] [place], paroxysmal atrial fibrillation on Eliquis, 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 He was most recently admitted to [facility] from 08/09-08/11/2025 with gross hematuria associated with above. He was also found to have MDR staph epi, and was placed on Zyvox 600 mg p.o. twice daily for 12 days and had the addition of tamsulosin. Family reports he had been doing well until the past few days, when he became more noticeably short of breath, with dyspnea on exertion, and had severe coughing to the point of turning blue in his face. He has been noticing more difficulty sleeping at night. #Acute respiratory failure with hypoxia/bibasilar interstitial pneumonia/aspiration with cough- chest x-ray with some mild CHF, but more significant bibasilar pneumonia, right greater than left. Patient received furosemide 40 mg IV and labetalol 10 mg IV from the ED, and 1 on the repeated. Discontinued Methylprednisolone Discontinued Vancomycin IV and Zosyn DuoNebs every 2 hours as needed VFSS shows trace aspiration with straw. Oxygen supplementation titration goal was 92-94% Respiratory BioFire test negative CT chest shows bilateral pleural effusion.Lasix 40mg additional dose given. Hold furosemide, spironolactone, potassium at home. #Elevated troponin/atrial fibrillation/hypertension/CAD/CHF- Received one-time dose of furosemide 40 mg IV in ED, labetalol 10 mg IV from the ED Troponin initially 76.4->100.7 similar to previous admissions. Telemetry shows sinus rhythm to 80's with some PVC. Hold Eliquis because of hematuria until follow up with the PCP. Continue irbesartan, isosorbide mononitrate extended release. #Obstructive sleep apnea- Patient uses his own BiPAP at bedtime #BPH/bladder outlet obstruction- Status post HoLEP procedure Continue tamsulosin #Hyperlipidemia- Continue atorvastatin and Zetia Anemia- Hemoglobin 9.0 -> 8.5 Patient had had significant gross hematuria associated with being on Eliquis and having prostate procedure performed. Total Time Total Time Spent Total Time Spent (In Minutes): <30 Discharge Plan Discharge Items Patient Disposition: Home - Self-Care Reason For Visit: ACUTE RESP FAILURE W/ HYPOXIA, HAP, CHF Discharge Diagnosis: Acute respiratory failure Condition on Discharge: Fair Activity: Per Instructions section Non-emergency contact: Primary Care Provider Call non-emergency contact if: your symptoms worsen and your temperature is above 101 Follow-up/Referrals: Sarwat Ramirez MD [Primary Care Provider] - (Please call the office to schedule a follow up appointment) Diet: Regular Addtl Attending Provider Instructions: as we discussed, the main reason someone ends up with "acute congestive heart failure" (as in "why now") is sodium intake. where salt goes, water follows. typically if you stay under ~2000mg of sodium a day and under ~500mg of sodium at any given meal, it should keep you out of trouble for now, stay off the furosemide, spironolactone, and potassium. sometimes people will be more "brittle" with their congestive heart failure, in which case the risks of being dry from the diuretics become worth it, but for now, since this was a one-time episode (and probably brought on by restaurant food) we can hopefully manage with sodium avoidance and/or rare use of diuretics if you start to accumulate some fluid, but hopefully can avoid having you on a diuretic regularly if you get new short of breath/short of breath laying flat/short of breath with exertion - and especially with associated weight gain (usually over a few days time) this is a good hint of starting into a congestive heart failure episode - therefore, if you get that constellation of symptoms, call Dr Ramirez for further guidance, but expect him to have you take furosemide for a few days and then reassess. hopefully avoiding sodium makes none of this necessary! hold off on the eliquis until tuesday AM - this should give time for your body to clot at the surgical bed and maybe make the urinary bleeding go away for good. we'll also be asking for local urology follow up for you take miralax 17g (one capful) daily routinely - avoiding constipation can also help with less pelvic pressure to reduce the bleeding. if you're not having a regular bowel movement once a day, go up to ~2-3 doses a day on your own; if that's not helping, we can easily go higher but i'd want you talking with Dr Ramirez for guidance. Pending Studies at Discharge: No Stand-Alone Forms: My [facility], Smoking Cessation Medications and DC Order Prescriptions: Continued irbesartan 300 mg tablet 300 mg PO DAILY Qty: 90 3RF isosorbide mononitrate 60 mg tablet extended release 24 hr 60 mg PO DAILY Qty: 90 3RF atorvastatin 80 mg tablet 80 mg PO DAILY multivitamin Tablet 1 tab PO DAILY ezetimibe 10 mg tablet 10 mg PO DAILY nitroglycerin 0.4 mg tablet, sublingual 0.4 mg SL DIRECTED PRN (Reason: Chest Pain) Eliquis 5 mg tablet 5 mg PO BID Hold Instructions: hold until 08/12/25 in the evening. tamsulosin 0.4 mg Capsule 0.4 mg PO QAM Qty: 30 2RF sertraline 25 mg Tablet 25 mg PO DAILY Hold Instructions: do NOT take until you have completed the linezolid antibiotic course. ferrous sulfate 325 mg (65 mg iron) tablet 325 mg PO Q OTHER DAY Qty: 14 0RF Discontinued potassium chloride 20 mEq tablet extended release 20 meq PO DAILY Qty: 90 3RF spironolactone 50 mg tablet 50 mg PO DAILY Qty: 90 3RF Discharge Orders: Discharge Order- CHF (Routine); Ordered 09/05/25 Ordered By: Zain Maldonado Admission Data Admit Date/Time: 09/03/25 00:14 Attending Provider: Zain Maldonado Admit Provider: Deni Stevenson Primary Care Provider: Sarwat Ramirez Other Providers: Deni Stevenson Other Interventions: Discharge Summary Assessment (RN) Last Done: 09/05/25 14:21 Supervising Physician Co-Signing Physician Notes I personally examined the patient and verified all evans points of history and exam, discussed case, and agree with decision making with Dr Castorena continues to feel better and very much wants to go home. No new complaints or symptoms. Updated family extensively. Answered all questions to the best my ability and to their satisfaction. Vitals noted, in general he is awake and alert pleasant no distress. HEENT normocephalic atraumatic mucous membranes moist. Breathing unlabored no accessory muscle use good effort. Skin without rashes pallor or icterus. Labs and diagnostics noted. Dyspnea/hypoxia Appears to have been entirely acute on chronic HFpEF/acute on chronic diastolic CHFprobably from accidental but excess sodium intake with his diet recently, combined with his recent frailty from frequent admissions/different organ system decompensations/and a mild but burgeoning failure to thrive picture. Now on room air. Pleural effusions do not seem to be causing him much symptomsno overt need for thoracentesis at this time. Discussed elevated troponinprobably a degree of demand ischemia from the hypoxia initially on admission, probably a degree of wall stretch from the decompensated CHF, and given that he has not had a normal troponin since Mayprobably a degree of chronic troponin leak either from his LVH, post TAVR, both. His echocardiogram looks unchanged from February which is extremely reassuring. Educated on sodium restriction. Some degree of waxing and waning confusionfamily notes PCP had ordered brain imaging to rule out strokebut because of the outpatient world this was not going to be able to be done until at the end of the monthMRI brain Without acute findings. Explained chronic findings. Discussed that risks/benefits favor resuming Eliquis in the long run. Deconditioning/failure to thrivehe had been doing well, but since his TAVR, he has now had multiple readmissions and a bit of a downward spiral. Discussed strategies to get built back up and regain his overall functional status. Hematuriaseems to be persisting since urologic procedure. No hemorrhage or evidence of acute blood loss anemia (suspect the anemia right now is much more anemia of chronic disease) and nothing that seems to be fitting with urinary obstruction from clotting. Improved quickly holding a dose of his Eliquis. Can hold DOAC for a few days to try to hasten resolution of hematuria. Avoid Valsalva, avoid constipation. They would like local urology follow-up, we will try to facilitate this. otherwise as above Resident Activity Tracking Resident Involvement: Resident Care Provided Care Provided: Adult Hospital Medicine
--- NOTE | 2025-09-05 17:31 | Billing Data ---
Date of Service September 05, 2025 Coding Level of Care Code 59045 IN/OBS DISCH 30 MIN/LESS
--- NOTE | 2025-09-05 17:34 | Billing Data ---
Date of Service September 05, 2025 Coding Level of Care Code 13274 IN/OBS DISCH 30 MIN/LESS
== END 2025-09-05 14:50 | disposition home or self-care (01) | DRG 291 ==
LOC: ED 20:47 → INTOOBSV 09-03 00:14 → SUATTDRO 09-03 00:14 → EDINP 09-03 00:14 → 2E 09-03 01:25